=== PATIENT | female | born 1980 | race Caucasian/White ===

== ENCOUNTER 2018-05-14 19:45 | Emergency (ER) | payer SELFPAY ==
--- OUTSIDE RECORDS SUMMARY | 2018-05-14 19:48 | XMS REPORT | Clinical Summary ---
:1980 Author Organization [facility] Address [address] [place] [address] Phone Care Team Providers Name Role Phone Unavailable Primary Care Provider Unavailable Allergies No Known Allergies Current Medications Prescription Sig. Disp. Refills Start Date End Date Status HYDROcodone-acetami Take 1 tablet by Active nophen (NORCO mouth every 6 10-325) 10-325 mg (six) hours as per tablet needed for Pain. dextroamphetamine-a Take 20 mg by Active mphetamine mouth every (ADDERALL XR) 20 MG morning. 24 hr capsule clonazePAM Take 1 mg by mouth Active (KLONOPIN) 1 MG 2 (two) times tablet daily as needed for Anxiety. promethazine Take 25 mg by Active (PHENERGAN) 25 MG mouth every 6 tablet (six) hours as needed for Nausea. albuterol Take 2.5 mg by Active (PROVENTIL) 2.5 mg nebulization every /3 mL (0.083 %) 6 (six) hours as nebulizer solution needed for Wheezing. pentosan Take 100 mg by 06/04/2017 Discontinued polysulfate mouth 3 (three) (ELMIRON) 100 mg times daily before capsule meals. esomeprazole Take 20 mg by 06/04/2017 Discontinued (NEXIUM) 20 MG mouth daily. capsule Active Problems Not on file Encounters Date Type Specialty Care Team Description 06/04/2017 Emergency Emergency Medicine Leon Harrell Nonintractable headache, MD Octavio unspecified chronicity pattern, unspecified headache type (Primary Dx) after 05/13/2017 Social History Tobacco Use Types Packs/Day Years Used Date Never Smoker Smokeless Tobacco: Never Used Alcohol Use Drinks/Week oz/Week Comments No Sex Assigned at Date Recorded Not on file Last Filed Vital Signs Vital Sign Reading Time Taken Blood Pressure 149/99 06/04/2017 4:38 PM CDT Pulse 113 06/04/2017 4:38 PM CDT Temperature 36.7 C (98.1 F) 06/04/2017 4:38 PM CDT Respiratory Rate 18 06/04/2017 4:38 PM CDT Oxygen Saturation 98% 06/04/2017 4:38 PM CDT Inhaled Oxygen Concentration - - Weight 46.7 kg (103 lb) 06/04/2017 4:38 PM CDT Height 162.6 cm (5' 4") 06/04/2017 4:38 PM CDT Body Mass Index 17.68 06/04/2017 4:38 PM CDT Plan of Treatment Not on file Results CT brain without IV contrast (06/04/2017 5:17 PM) Specimen Performing Laboratory GE RIS Narrative FINAL REPORT CT Head without contrast CLINICAL HISTORY: HEADACHE Episode of Care: Initial TECHNIQUE: Contiguous axial images through the head without contrast. This exam was performed according to the departmental dose optimization program which includes automated exposure control, adjustment of the mA and/or kV according to the patient size, and/or use of an iterative reconstruction technique. COMPARISON: None FINDINGS: There is no CT evidence of acute infarct or intracranial hemorrhage. There is no hydrocephalus, midline shift, or apparent mass effect. There are no extra-axial fluid collections. The skull is intact. The visualized paranasal sinuses are well-aerated. IMPRESSION: No CT evidence of acute infarct, hemorrhage, or hydrocephalus. Signed: Olivier Su MD Report Verified Date/Time:06/04/2017 17:17:08 Reading Location: [facility] [id number] Neuro Reading Room Procedure Note Interface, External Ris In - 06/04/2017 5:19 PM CDT FINAL REPORT CT Head without contrast CLINICAL HISTORY: HEADACHE Episode of Care: Initial TECHNIQUE: Contiguous axial images through the head without contrast. This exam was performed according to the departmental dose optimization program which includes automated exposure control, adjustment of the mA and/or kV according to the patient size, and/or use of an iterative reconstruction technique. COMPARISON: None FINDINGS: There is no CT evidence of acute infarct or intracranial hemorrhage. There is no hydrocephalus, midline shift, or apparent mass effect. There are no extra-axial fluid collections. The skull is intact. The visualized paranasal sinuses are well-aerated. IMPRESSION: No CT evidence of acute infarct, hemorrhage, or hydrocephalus. Signed: Olivier Su MD Report Verified Date/Time: 06/04/2017 17:17:08 Reading Location: [facility] [id number] Neuro Reading Room after 05/13/2017
[2018-05-14] MEDS ORDERED: ONDANSETRON 4 MG/2 ML VIAL ONE (21:12)
[2018-05-14] MEDS ORDERED: NA CHLORIDE 0.9% 1,000 ML ONE (21:12)
[2018-05-14 21:14] LABS: Absolute Lymphocytes (CBC) 2.4 K/uL (0.7-4.9); Absolute Monocytes 1.1 K/uL (0.1-1.3); Absolute Neutrophil 5.6 K/uL (1.8-8.0); Basophils % 0.6 % (0-1.3); Eosinophils % 5.4 % (0-4.4); Hematocrit 39.5 % (36.0-45.0); Lymphocytes % 24.9 % (15.3-44.8); MCV 88.6 fL (80-100); MPV 9.2 fL (7.6-11.3); Monocytes % 11.3 % (3.3-12.3); RBC Red Blood Cell Count 4.46 M/uL (3.86-4.86)
[2018-05-14 21:20] LABS: Urine Bacteria <20 /HPF (<20); Urine Culture Reflex Order NOT NEEDED; Urine RBC <5 /HPF (NONE SEEN)
[2018-05-14 21:21] LABS: Urine Blood NEGATIVE (NEG); Urine Glucose NEGATIVE (NEG); Urine Protein NEGATIVE (NEG); Urine Specific Gravity 1.025 (1.005-1.030)
[2018-05-14 21:29] LABS: ALT/SGPT 18 U/L (12-78); AST/SGOT 12 U/L (15-37); Albumin 3.6 g/dL (3.4-5.0); Alkaline Phosphatase 61 U/L (45-117); BUN Blood Urea Nitrogen 14 mg/dL (7-18); Bicarbonate 30 mmol/L (21-32); Bilirubin Direct < 0.1 mg/dL (0-0.2); Bilirubin Total 0.2 mg/dL (0.2-1.0); Glucose Level 89 mg/dL (74-106); Lipase 100 U/L (73-393); Potassium 3.3 mmol/L (3.5-5.1); Protein, Total 7.2 g/dL (6.4-8.2); Sodium Level 138 mmol/L (136-145)
--- NOTE | 2018-05-14 22:15 | RAD REPORT ---
EXAM DESCRIPTION: CTAbdomen Pelvis W Contrast - 05/14/2018 10:05 pm CLINICAL HISTORY: Abdominal pain. ABD PAIN COMPARISON: Abdomen Pelvis W Contrast dated 08/30/2016; CT ABD PELVIS W CONTRAST dated 07/07/2013; CT ABD PELVIS W CONTRAST dated 07/04/2012bdomen Pelvis W Contrast dated 08/30/2016; CT ABD PELVIS W CONTRAST dated 07/07/2013; CT ABD PELVIS W CONTRAST dated 07/04/2012; CTSTONE PROTOCOL dated 01/22/2013 TECHNIQUE: Biphasic CT imaging of the abdomen and pelvis was performed with 100 ml non-ionic IV cont rast. All CT scans are performed using dose optimization technique as appropriate and may include automated exposure control or mA/KV adjustment according to patient size. FINDINGS: The lung bases are clear. The liver demonstrates mild pneumobilia. 3.5 x 3.7 cm left hepatic lobe lesion is again noted, with c haracteristics suggestive of benign hemangioma. No aggressive features are seen and the lesion appear s essentially stable since the most recent 2016 comparative study. Mild pneumobilia is seen with chol ecystectomy clips present. The spleen, adrenal glands and kidneys are within normal limits. No bowel obstruction, free air, free fluid or abscess. The appendix is normal. No evidence of signi ficant lymphadenopathy. 4 cm right adnexal cystic lesion is again noted appearing stable since most recent 2016 comparative s tudy. No suspicious bony findings. IMPRESSION: No acute intra-abdominal or pelvic finding. Additional findings detailed above appear stable since 2016 comparative study.
--- NOTE | 2018-05-14 22:46 | ER ---
Nurse's Notes [facility] Name: Evelyn Chawla Age: 37 yrs Sex: Female : 1980 Arrival Date: 05/14/2018 Time: 19:48 Bed 30 Private MD: Silver Power E Diagnosis: Proctitis Presentation: 05/14 20:04 Presenting complaint: Patient states: abd pain X3 days with intermittent nausea. ak1 Transition of care: patient was not received from another setting of care. Onset of symptoms is unknown. Risk Assessment: Do you want to hurt yourself or someone else? Patient reports no desire to harm self or others. Initial Sepsis Screen: Does the patient meet any 2 criteria? No. Patient's initial sepsis screen is negative. Does the patient have a suspected source of infection? No. Patient's initial sepsis screen is negative. Care prior to arrival: None. 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 - Social history:: Smoking status: Patient uses tobacco products, smokes one-half pack cigarettes per day. - Ebola Screening: : No symptoms or risks identified at this time. - Family history:: not pertinent. - Hospitalizations: : No recent hospitalization is reported. Screenin:07 Abuse screen: Denies threats or abuse. Denies injuries from another. Nutritional ed1 screening: No deficits noted. Tuberculosis screening: No symptoms or risk factors identified. Fall Risk None identified. Assessment: 20:07 General: Appears uncomfortable, Behavior is calm, cooperative. Pain: Complains of pain ed1 in abdomen Pain does not radiate. Pain currently is 7 out of 10 on a pain scale. Quality of pain is described as aching, crampy, Pain began 2-3 days ago. Is continuous, Also complains of nausea. Neuro: Level of Consciousness is awake, alert, obeys commands, Oriented to person, place, time, situation. Cardiovascular: Denies chest pain, Heart tones S1 S2 present. Respiratory: Airway is patent Respiratory effort is even, unlabored, Respiratory pattern is regular, symmetrical, Breath sounds are clear bilaterally. GI: Abdomen is flat, non-distended, Bowel sounds present X 4 quads. Abd is soft and non tender X 4 quads. Reports diarrhea, nausea, vomiting. : No signs and/or symptoms were reported regarding the genitourinary system. EENT: No signs and/or symptoms were reported regarding the EENT system. Derm: Skin is pink, warm \T\ dry. Musculoskeletal: Circulation, motion, and sensation intact. 21:07 Reassessment: Patient appears in no apparent distress at this time. No changes from ed1 previously documented assessment. Patient and/or family updated on plan of care and expected duration. Pain level reassessed. Patient is alert, oriented x 3, equal unlabored respirations, skin warm/dry/pink. Patient states symptoms have not improved. 22:29 Reassessment: Patient appears in no apparent distress at this time. No changes from ed1 previously documented assessment. Patient and/or family updated on plan of care and expected duration. Pain level reassessed. Patient is alert, oriented x 3, equal unlabored respirations, skin warm/dry/pink. Patient states symptoms have not improved. Vital Signs: 20:06 BP 126 / 78; Pulse 111; Resp 18; Temp 99.2; Pulse Ox 99% on R/A; Weight 44.45 kg (R); ak1 Height 5 ft. 4 in. (162.56 cm) (R); Pain 7/10; 21:07 BP 123 / 77; Pulse 93; Resp 20; Pulse Ox 100% on R/A; Pain 7/10; ed1 22:29 BP 126 / 83; Pulse 74; Resp 16; Pulse Ox 100% on R/A; Pain 5/10; ed1 20:06 Body Mass Index 16.82 (44.45 kg, 162.56 cm) ak1 ED Course: 19:48 Patient arrived in ED. al2 19:49 Silver Power MD is Private Physician. al2 20:05 Triage completed. ak1 20:06 Arm band placed on Patient placed in an exam room, on a stretcher, Patient notified of ak1 wait time. 20:07 Patient has correct armband on for positive identification. Bed in low position. Call ed1 light in reach. Side rails up X 1. Adult w/ patient. Pulse ox on. NIBP on. Warm blanket given. 20:09 García Moore MD is Attending Physician. rn 20:14 Delaney Diaz LVN is Primary Nurse. ed1 21:08 Initial lab(s) drawn, by me, sent to lab. Urine collected: clean catch specimen, clear. ed1 Inserted saline lock: 20 gauge in right antecubital area, using aseptic technique. Blood collected. 22:[address] via wheelchair. ne 22:04 CT completed. Patient tolerated procedure well. Patient moved back from NH. ne 22:05 CT Abd/Pelvis - W/Contrast In Process Unspecified. EDMS 22:29 Resting quietly. Awaiting disposition. ed1 22:58 No provider procedures requiring assistance completed. IV discontinued. rk2 Administered Medications: 21:33 Drug: NS 0.9% 1000 ml Route: IV; Rate: 1000 ml; Site: right antecubital; fc 21:34 Drug: Zofran 4 mg Route: IVP; Site: right antecubital; fc 22:56 Drug: Cipro 500 mg Route: PO; rk2 22:57 Follow up: Given \T\ DC rk2 22:56 Drug: Flagyl 500 mg Route: PO; rk2 22:57 Follow up: Given \T\ DC rk2 Intake: Outcome: 22:45 Discharge ordered by . rn 22:58 Discharged to home ambulatory. rk2 22:58 Condition: good 22:58 Discharge instructions given to patient, Prescriptions given X 3. 22:59 Patient left the ED. rk2 Signatures: Dispatcher [employer] EDMI Radha Martinez RN RN García Moore MD MD rn Riggs, Erika, LVN LVN ed1 Shiloh Hardy RN RN [email or web address] Jaun Bishop Angelica al2 Kidder, Rhonda, RN RN rk2
--- NOTE | 2018-05-14 22:46 | EDPHYS ---
Physician Documentation [facility] Name: Evelyn Chawla Age: 37 yrs Sex: Female : 1980 Arrival Date: 05/14/2018 Time: 19:48 Bed 30 Private MD: Silver Power E ED Physician García Moore HPI: 05/14 20:18 This 37 yrs old Female presents to ER via Ambulatory with complaints of rn Abdominal Pain, Nausea, Rectal Pain. 20:18 The patient presents to the emergency department with nausea, abdominal pain. Onset: rn The symptoms/episode began/occurred 2 day(s) ago. Possible causes: unknown. The symptoms are aggravated by nothing. The symptoms are alleviated by nothing. Severity of symptoms: At their worst the symptoms were moderate in the emergency department the symptoms are unchanged. The patient has experienced a previous episode. The patient has not recently seen a physician. Reports lower abd pain, nausea, rectal pressure, green stool, no blood. . 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 - Social history:: Smoking status: Patient uses tobacco products, smokes one-half pack cigarettes per day. - Ebola Screening: : No symptoms or risks identified at this time. - Family history:: not pertinent. - Hospitalizations: : No recent hospitalization is reported. ROS: 20:18 Constitutional: Negative for fever, chills, and weight loss, Eyes: Negative for injury, rn pain, redness, and discharge, Neck: Negative for injury, pain, and swelling, Cardiovascular: Negative for chest pain, palpitations, and edema, Respiratory: Negative for shortness of breath, cough, wheezing, and pleuritic chest pain, Abdomen/GI: + abd pain, nausea, rectal pressure MS/Extremity: Negative for injury and deformity, Skin: Negative for injury, rash, and discoloration, Neuro: Negative for headache, weakness, numbness, tingling, and seizure. Exam: 20:18 Constitutional: This is a well developed, well nourished patient who is awake, alert, rn and in no acute distress. Head/Face: Normocephalic, atraumatic. Eyes: Pupils equal round and reactive to light, extra-ocular motions intact. Lids and lashes normal. Conjunctiva and sclera are non-icteric and not injected. Cornea within normal limits. Periorbital areas with no swelling, redness, or edema. ENT: dry MM Abdomen/GI: soft, + mild LLQ, suprapubic, and RLQ tenderness, no rebound, no masses Skin: Warm, dry, no evidence of cellulitis. MS/ Extremity: Pulses equal, no cyanosis. Neurovascular intact. Full, normal range of motion. Equal circumference. Neuro: Awake and alert, GCS 15, oriented to person, place, time, and situation. Motor strength 5/5 in all extremities. Sensory grossly intact. Vital Signs: 20:06 BP 126 / 78; Pulse 111; Resp 18; Temp 99.2; Pulse Ox 99% on R/A; Weight 44.45 kg (R); ak1 Height 5 ft. 4 in. (162.56 cm) (R); Pain 7/10; 21:07 BP 123 / 77; Pulse 93; Resp 20; Pulse Ox 100% on R/A; Pain 7/10; ed1 22:29 BP 126 / 83; Pulse 74; Resp 16; Pulse Ox 100% on R/A; Pain 5/10; ed1 20:06 Body Mass Index 16.82 (44.45 kg, 162.56 cm) ak1 MDM: 20:09 Patient medically screened. rn 22:44 Differential diagnosis: Nonspecific abd pain, viral gastroenteritis, gastroenteritis, rn colitis, proctitis. Data reviewed: vital signs, nurses notes, lab test result(s), radiologic studies, CT scan, and as a result, I will discharge patient. Counseling: I had a detailed discussion with the patient and/or guardian regarding: the historical points, exam findings, and any diagnostic results supporting the discharge/admit diagnosis, lab results, radiology results, the need for outpatient follow up, to return to the emergency department if symptoms worsen or persist or if there are any questions or concerns that arise at home. Response to treatment: the patient's symptoms have markedly improved after treatment, and as a result, I will discharge patient. Special discussion: I discussed with the patient/guardian in detail that at this point there is no indication for admission to the hospital. It is understood, however, that if the symptoms persist or worsen the patient needs to return immediately for re-evaluation. ED course: Pt improved, ct no acute findings, will treat with cipro/flagyl given green stool/rectal pressure, symptoms consistent with proctitis. . 05/14 20:17 Order name: Basic Metabolic Panel; Complete Time: : 05/14 20:17 Order name: CBC with Diff; Complete Time: : 05/14 20:17 Order name: Hepatic Function; Complete Time: : 05/14 20:17 Order name: Lipase; Complete Time: : 05/14 20:17 Order name: Urine Microscopic Only; Complete Time: : 05/14 21:10 Order name: Urine Dipstick--Ancillary (enter results); Complete Time: : 05/14 20:17 Order name: Urine Test (obtain specimen); Complete Time: 21: 05/14 20:17 Order name: IV Saline Lock; Complete Time: : 05/14 20:17 Order name: CT Abd/Pelvis - W/Contrast; Complete Time: : 05/14 21:10 Order name: Urine --Ancillary (enter results); Complete Time: : 05/14 20:17 Order name: Labs collected and sent; Complete Time: 21: 05/14 20:17 Order name: Urine Dipstick-Ancillary (obtain specimen); Complete Time: 21: rn Administered Medications: 21:33 Drug: NS 0.9% 1000 ml Route: IV; Rate: 1000 ml; Site: right antecubital; fc 21:34 Drug: Zofran 4 mg Route: IVP; Site: right antecubital; fc 22:56 Drug: Cipro 500 mg Route: PO; rk2 22:57 Follow up: Given \T\ DC rk2 22:56 Drug: Flagyl 500 mg Route: PO; rk2 22:57 Follow up: Given \T\ DC rk2 Disposition: 05/14/18 22:45 Discharged to Home. Impression: Proctitis. - Condition is Stable. - Prescriptions for Flagyl 500 mg Oral Tablet - take 1 tablet by ORAL route every 8 hours for 7 days; 21 tablet. Cipro 500 mg Oral Tablet - take 1 tablet by ORAL route every 12 hours for 7 days; 14 tablet. Zofran ODT 4 mg Oral tablet,disintegrating - place 1 tablet by TRANSLINGUAL route every 8-10 hours As needed; 20 tablet. - Medication Reconciliation Form, Thank You Letter, Antibiotic Education, Prescription Opioid Use form. - Follow up: Private Physician; When: As needed; Reason: Recheck today's complaints, Re-evaluation by your physician. - Problem is new. - Symptoms have improved. Signatures: Dispatcher [employer] EDMS Radha Martinez, RN RN García Myers MD MD rn Riggs, Erika, PLASTIC BOAT PATCHER PLASTIC BOAT PATCHER ed1 Shiloh Hardy RN RN ak1 Mali Lux RN RN rk2 Corrections: (The following items were deleted from the chart) 22:59 22:45 05/14/2018 22:45 Discharged to Home. Impression: Proctitis. Condition is Stable. rk2 Forms are Medication Reconciliation Form, Thank You Letter, Antibiotic Education, Prescription Opioid Use. Follow up: Private Physician; When: As needed; Reason: Recheck today's complaints, Re-evaluation by your physician. Problem is new. Symptoms have improved. rn
[2018-05-14] MEDS ORDERED: metroNIDAZOLE 500 MG TABLET ONE (22:56)
[2018-05-14] MEDS ORDERED: CIPROFLOXACIN HCL 500 MG TAB ONE (22:56)
[2018-05-14 23:03] VITALS: TEMP 99.2
[2018-05-14 23:04] VITALS: O2SAT 100
[2018-05-14 23:05] VITALS: BP 126/83
== END 2018-05-14 22:59 | disposition home or self-care (01) ==
LOC: ER 19:45
DX: K62.89 Other specified diseases of anus and rectum (principal); F17.210 Nicotine dependence, cigarettes, uncomplicated
CPT/HCPCS: 36415; 74177; 80048; 80076; 81003; 81015; 81025; 83690; 85025; 96374; 99284; J2405; J7030

== ENCOUNTER 2018-09-17 12:28 | Emergency (ER) | payer SELFPAY ==
--- OUTSIDE RECORDS SUMMARY | 2018-09-17 12:31 | XMS REPORT | Clinical Summary ---
:1980 Author Organization [facility] Address [address] [place] [address] Care Team Providers Name Role Phone Christine Primary Care Provider Allergies No Known Allergies Medications Medication Sig Dispensed Refills Start Date End Date Status HYDROcodone-acetamin Take 1 tablet by 0 Active ophen (NORCO 10-325) mouth every 6 (six) 10-325 mg per tablet hours as needed for Pain. dextroamphetamine-am Take 20 mg by mouth 0 Active phetamine (ADDERALL every morning. XR) 20 MG 24 hr capsule clonazePAM Take 1 mg by mouth 2 0 Active (KLONOPIN) 1 MG (two) times daily as tablet needed for Anxiety. promethazine Take 25 mg by mouth 0 Active (PHENERGAN) 25 MG every 6 (six) hours tablet as needed for Nausea. albuterol Take 2.5 mg by 0 Active (PROVENTIL) 2.5 mg nebulization every 6 /3 mL (0.083 %) (six) hours as nebulizer solution needed for Wheezing. Active Problems Not on file Social History Tobacco Use Types Packs/Day Years Used Date Never Smoker Smokeless Tobacco: Never Used Alcohol Use Drinks/Week oz/Week Comments No Sex Assigned at Date Recorded Not on file Job Start Date Occupation Industry Not on file Not on file Not on file Travel History Travel Start Travel End No recent travel history available. Last Filed Vital Signs Not on file Plan of Treatment Not on file Results Not on fileafter 09/16/2017 Insurance Payer Benefit Plan / Group Subscriber ID Type Phone Address MEDICAID [place]ICA[place] xxxxxxxxx Medicaid
--- NOTE | 2018-09-17 15:58 | ER ---
Nurse's Notes [facility] Name: Evelyn Chawla Age: 37 yrs Sex: Female : 1980 Arrival Date: 09/17/2018 Time: 12:29 Bed DIS13 Private MD: Silver Power E Diagnosis: Presentation: 09/17 13:15 Presenting complaint: Patient states: " L sided neck/jaw pain x 2-3 days, worse today, ph described as squeezing pain that radiates to back of neck, also reports rash in nose, reports hx of trigeminal neuralgia. Transition of care: patient was not received from another setting of care. Onset of symptoms was September 17, 2018. Risk Assessment: Do you want to hurt yourself or someone else? Patient reports no desire to harm self or others. Care prior to arrival: None. 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 Vital Signs: 13:20 BP 113 / 67; Pulse 91; Resp 18; Temp 98.7; Pulse Ox 100% on R/A; Weight 44.45 kg; ph Height 5 ft. 4 in. (162.56 cm); Pain 6/10; 13:20 Body Mass Index 16.82 (44.45 kg, 162.56 cm) ph ED Course: 12:29 Patient arrived in ED. as 12:29 Silver Power MD is Private Physician. as 13:18 Triage completed. ph 13:20 Arm band placed on. ph Administered Medications: No medications were administered Outcome: 15:56 Eloped from waiting room, reportedly left at 1526 -per registration staff. NAD noted. ss 15:57 Patient left the ED. Signatures: Lavonne Petersen Shelby, RN RN Roselia Pabon RN RN
[2018-09-17 16:21] VITALS: BP 113/67; TEMP 98.7; O2SAT 100
== END 2018-09-17 15:57 | disposition left against medical advice (07) ==
LOC: ER 12:28
DX: Z53.21 Procedure and treatment not carried out due to patient leaving prior to being seen by health care provider (principal)
CPT/HCPCS: 99281

== ENCOUNTER 2019-01-15 19:30 | Emergency (ER) | payer SELFPAY ==
--- OUTSIDE RECORDS SUMMARY | 2019-01-15 19:33 | XMS REPORT | Clinical Summary ---
:1980 Author Organization [facility] Address [address] [place] [address] Care Team Providers Name Role Phone Christine [...] Not on file Results Not on fileafter 01/14/2018 Insurance Payer Benefit Plan / Group Subscriber ID Type Phone Address MEDICA[place] xxxxxxxxx Medicaid
[2019-01-15] MEDS ORDERED: HYDROMORPHONE HCL 1 MG/ML INJ ONE (21:45)
[2019-01-15 22:06] LABS: Urine Blood NEGATIVE (NEG); Urine Glucose NEGATIVE (NEG); Urine Protein NEGATIVE (NEG); Urine Specific Gravity 1.025 (1.005-1.030); Urine pH 6.5 (5.0-7.0)
--- NOTE | 2019-01-15 22:40 | EDPHYS ---
Physician Documentation [facility] Name: Evelyn Chawla Age: 38 yrs Sex: Female : 1980 Arrival Date: 01/15/2019 Time: 19:34 Bed 28 Private MD: Silver Power E ED Physician Dale Matias HPI: 01/15 22:10 This 38 yrs old Female presents to ER via Ambulatory with complaints of jr8 Facial pain, Jaw Pain. 22:10 Onset: The symptoms/episode began/occurred acutely, today. Associated signs and jr8 symptoms: The patient has no apparent associated signs or symptoms. Modifying factors: The patient symptoms are alleviated by nothing, the patient symptoms are aggravated by nothing. The patient has experienced similar episodes in the past, several times. The patient has not recently seen a physician. Patient with history of Trigeminal neuralgia. Stated that normally she is able to fight through the pain but tonight is so severe that she cannot. Stated that she feels it on both sides tonight as well which normally it just does one side at a time. 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 - Social history:: Smoking status: Patient uses tobacco products, smokes one-half pack cigarettes per day. - Ebola Screening: : No symptoms or risks identified at this time. ROS: 22:35 Eyes: Negative for injury, pain, redness, and discharge, ENT: Negative for injury, jr8 pain, and discharge, Neck: Negative for injury, pain, and swelling, Cardiovascular: Negative for chest pain, palpitations, and edema, Respiratory: Negative for shortness of breath, cough, wheezing, and pleuritic chest pain, Abdomen/GI: Negative for abdominal pain, nausea, vomiting, diarrhea, and constipation, Back: Negative for injury and pain, MS/Extremity: Negative for injury and deformity, Skin: Negative for injury, rash, and discoloration, Neuro: Negative for headache, weakness, numbness, tingling, and seizure. Exam: 22:35 Head/Face: Normocephalic, atraumatic. Eyes: Pupils equal round and reactive to light, jr8 extra-ocular motions intact. Lids and lashes normal. Conjunctiva and sclera are non-icteric and not injected. Cornea within normal limits. Periorbital areas with no swelling, redness, or edema. ENT: Nares patent. No nasal discharge, no septal abnormalities noted. Tympanic membranes are normal and external auditory canals are clear. Oropharynx with no redness, swelling, or masses, exudates, or evidence of obstruction, uvula midline. Mucous membranes moist. Neck: Trachea midline, no thyromegaly or masses palpated, and no cervical lymphadenopathy. Supple, full range of motion without nuchal rigidity, or vertebral point tenderness. No Meningismus. Cardiovascular: Regular rate and rhythm with a normal S1 and S2. No gallops, murmurs, or rubs. Normal PMI, no JVD. No pulse deficits. Respiratory: Lungs have equal breath sounds bilaterally, clear to auscultation and percussion. No rales, rhonchi or wheezes noted. No increased work of breathing, no retractions or nasal flaring. Abdomen/GI: Soft, non-tender, with normal bowel sounds. No distension or tympany. No guarding or rebound. No evidence of tenderness throughout. Back: No spinal tenderness. No costovertebral tenderness. Full range of motion. Skin: Warm, dry with normal turgor. Normal color with no rashes, no lesions, and no evidence of cellulitis. MS/ Extremity: Pulses equal, no cyanosis. Neurovascular intact. Full, normal range of motion. Neuro: Awake and alert, GCS 15, oriented to person, place, time, and situation. Cranial nerves II-XII grossly intact. Motor strength 5/5 in all extremities. Sensory grossly intact. Cerebellar exam normal. Normal gait. Vital Signs: 19:40 BP 134 / 85; Pulse 95; Resp 18; Temp 98.3(O); Pulse Ox 100% on R/A; Weight 46.27 kg; jb5 Height 5 ft. 4 in. (162.56 cm); Pain 9/10; 22:30 BP 123 / 85; Pulse 81; Resp 18; Pulse Ox 100% on R/A; tl3 19:40 Body Mass Index 17.51 (46.27 kg, 162.56 cm) jb5 MDM: 20:49 Patient medically screened. jr8 22:38 Data reviewed: vital signs, nurses notes, radiologic studies, CT scan, and as a result, jr8 I will discharge patient. Data interpreted: Pulse oximetry: on room air is 100 %. Interpretation: normal. Counseling: I had a detailed discussion with the patient and/or guardian regarding: the historical points, exam findings, and any diagnostic results supporting the discharge/admit diagnosis, radiology results, the need for outpatient follow up, a neurologist, to return to the emergency department if symptoms worsen or persist or if there are any questions or concerns that arise at home. Response to treatment: the patient's symptoms have markedly improved after treatment. 01/15 21:45 Order name: Urine Dipstick--Ancillary (enter results); Complete Time: 22:10 mw2 01/15 21:05 Order name: CT Head Brain wo Cont jr8 Administered Medications: 21:40 Drug: Dilaudid 1 mg Route: IM; Site: right gluteus; tl3 22:59 Follow up: Response: No adverse reaction; Pain is decreased tl3 Disposition: 01/16 06:22 Co-signature as Attending Physician, Dale Matias MD I agree with the assessment and tw4 plan of care. Disposition: 01/15/19 22:39 Discharged to Home. Impression: Atypical facial pain. - Condition is Stable. - Discharge Instructions: Trigeminal Neuralgia. - Medication Reconciliation Form, Thank You Letter, Antibiotic Education, Prescription Opioid Use form. - Follow up: Private Physician; When: 2 - 3 days; Reason: Recheck today's complaints, Continuance of care, Re-evaluation by your physician. - Problem is new. - Symptoms have improved. Signatures: Dispatcher [employer] EDMS Nasir Melo PA PA jrDale Mendez MD MD tw4 Ninfa Mackenzie RN RN tl3 Corrections: (The following items were deleted from the chart) 01/15 23:00 22:39 01/15/2019 22:39 Discharged to Home. Impression: Atypical facial pain. Condition tl3 is Stable. Forms are Medication Reconciliation Form, Thank You Letter, Antibiotic Education, Prescription Opioid Use. Follow up: Private Physician; When: 2 - 3 days; Reason: Recheck today's complaints, Continuance of care, Re-evaluation by your physician. Problem is new. Symptoms have improved. jr8
--- NOTE | 2019-01-15 22:40 | ER ---
Nurse's Notes [facility] Name: Evelyn Chawla Age: 38 yrs Sex: Female : 1980 Arrival Date: 01/15/2019 Time: 19:34 Bed 28 Private MD: Silver Power E Diagnosis: Atypical facial pain Presentation: 01/15 20:12 Presenting complaint: Patient states: reports neck pain, jaw pain and ear pain that tl3 radiates up to left eye. Transition of care: patient was not received from another setting of care. Onset of symptoms. Risk Assessment: Do you want to hurt yourself or someone else? Patient reports no desire to harm self or others. Initial Sepsis Screen: Does the patient meet any 2 criteria? No. Patient's initial sepsis screen is negative. Does the patient have a suspected source of infection? No. Patient's initial sepsis screen is negative. Care prior to arrival: None. 20:12 Method Of Arrival: Ambulatory tl3 20:12 Acuity: ISREAL 3 tl3 Triage Assessment: 20:18 General: Appears distressed, uncomfortable, well groomed, well developed, well tl3 nourished, Behavior is cooperative, appropriate for age. Pain: Complains of pain in neck, jaw, ear, left eye. EENT: Reports pain in left ear. Neuro: Level of Consciousness is awake, alert, obeys commands, Oriented to person, place, time, situation, Appropriate for age. Cardiovascular: Patient's skin is warm and dry. Respiratory: Airway is patent Respiratory effort is even, unlabored, Respiratory pattern is regular, symmetrical. 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 - Social history:: Smoking status: Patient uses tobacco products, smokes one-half pack cigarettes per day. - Ebola Screening: : No symptoms or risks identified at this time. Screenin:19 Abuse screen: Denies threats or abuse. Nutritional screening: No deficits noted. tl3 Tuberculosis screening: No symptoms or risk factors identified. Fall Risk None identified. Assessment: 20:19 Reassessment: No changes from previously documented assessment. tl3 21:00 Reassessment: Nasir at bedside for assessment. tl3 22:30 Reassessment: Patient appears in no apparent distress at this time. No changes from tl3 previously documented assessment. Patient and/or family updated on plan of care and expected duration. Pain level reassessed. Patient is alert, oriented x 3, equal unlabored respirations, skin warm/dry/pink. Vital Signs: 19:40 BP 134 / 85; Pulse 95; Resp 18; Temp 98.3(O); Pulse Ox 100% on R/A; Weight 46.27 kg; jb5 Height 5 ft. 4 in. (162.56 cm); Pain 9/10; 22:30 BP 123 / 85; Pulse 81; Resp 18; Pulse Ox 100% on R/A; tl3 19:40 Body Mass Index 17.51 (46.27 kg, 162.56 cm) jb5 ED Course: 19:34 Patient arrived in ED. am2 19:35 Silver Power MD is Private Physician. am2 19:47 [facility]. jr8 19:48 Dale Matias MD is Attending Physician. jr8 20:11 Ninfa Mackenzie, COURTNEY is Primary Nurse. tl3 20:14 Triage completed. tl3 20:18 Arm band placed on right wrist. tl3 20:19 Patient has correct armband on for positive identification. Bed in low position. Side tl3 rails up X 1. Adult w/ patient. Pulse ox on. NIBP on. 20:19 No provider procedures requiring assistance completed. tl3 21:[address] vm2 21:36 CT Head Brain wo Cont In Process Unspecified. EDMS 21:44 CT completed. Patient tolerated procedure well. Patient moved back from CT. vm2 22:30 Patient did not have IV access during this emergency room visit. tl3 Administered Medications: 21:40 Drug: Dilaudid 1 mg Route: IM; Site: right gluteus; tl3 22:59 Follow up: Response: No adverse reaction; Pain is decreased tl3 Outcome: 22:30 Discharged to home ambulatory. tl3 22:30 Condition: stable 22:30 Discharge instructions given to patient, Instructed on discharge instructions, follow up and referral plans. Demonstrated understanding of instructions, follow-up care, medications. 22:39 Discharge ordered by MD. ruano 23:00 Patient left the ED. tl3 Signatures: Dispatcher [employer] EDMS Nasir Melo PA PA jr8 Veronica Sal Amanda am2 McGuire, Victoria 2 Ninfa Mackenzie, RN RN tl3
[2019-01-15 23:46] VITALS: TEMP 98.3; O2SAT 100
[2019-01-15 23:57] VITALS: BP 123/85
--- NOTE | 2019-01-16 12:00 | RAD REPORT ---
EXAM DESCRIPTION: Head Brain Wo Cont CLINICAL HISTORY: 38 years Female, PAIN TECHNIQUE: 5 mm axial images were obtained along with 3 mm reformatted coronal and sagittal images. This exam was performed according to our departmental dose-optimization program, which includes autom ated exposure control, adjustment of the mA and/or kV according to patient size and/or use of iterati ve reconstruction technique. COMPARISON: None. FINDINGS: No acute abnormal extracerebral fluid collections are demonstrated. The cortical sulci, ventricles, and cisterns are within normal limits. There are no areas of altered attenuation identified to suggest acute hemorrhage, infarction, or mass lesion. The visualized portions of the paranasal sinuses and mastoid air cells are clear. IMPRESSION: 1. Normal study. Electronically signed by: Gama Smith MD 01/15/2019 9:45 PM CERTIFICATION OFFICER Due to temporary technical issues with the PACS/Fluency reporting system, reports are being signed b y the in house radiologist as a courtesy to ensure prompt reporting. The interpreting radiologist is fully responsible for the content of the report.
== END 2019-01-15 23:00 | disposition home or self-care (01) ==
LOC: ER 19:30
DX: G50.1 Atypical facial pain (principal); G50.0 Trigeminal neuralgia; F17.210 Nicotine dependence, cigarettes, uncomplicated
CPT/HCPCS: 70450; 81003; 96372; 99284; J1170

== ENCOUNTER 2020-02-14 17:30 | Emergency (ER) | payer OTHER ==
--- OUTSIDE RECORDS SUMMARY | 2020-02-14 17:34 | XMS REPORT | Summary of Care ---
:1980 Author Organization [facility] Address [address] [place] [address] Care Team Providers Name Role Phone Michi Glaser Primary Care Provider Encounter Details Date Type Department Care Team Description 02/14/2020 Orders Only [facility] Doctor Unassigned, No [address] [facility] [place] [address] [address] [place] [address] Allergies No Known Allergiesdocumented as of this encounter (statuses as of 02/14/2020) Medications Medication Sig Dispensed Refills Start Date End Date Status Hydrocodone-Acetaminop Take 1 Tab by 0 Active hen (XODOL 10/300) mouth 2 (two) 10-300 mg tablet times daily. traMADOL (ULTRAM) 50 Take 50 mg by 0 Active mg tablet mouth every 6 (six) hours as needed. benzonatate (TESSALON) Take 1 Cap by 21 Cap 0 09/09/2015 Active 200 mg capsule mouth 3 (three) times daily as needed for Cough. levofloxacin Take 1 tablet by 6 tablet 0 04/08/2016 Active (LEVAQUIN) 500 mg mouth every 24 tablet (twenty-four) hours. phenazopyridine Take 1 tablet by 8 tablet 0 04/08/2016 Active (PYRIDIUM) 200 mg mouth 3 (three) tablet times daily. traMADOL (ULTRAM) 50 Take 1 tablet by 20 tablet 0 04/08/2016 Active mg tablet mouth every 6 (six) hours as needed for Pain (scale 7-10). amoxicillin (TRIMOX) Take 1 capsule by 21 capsule 0 04/22/2016 Active 500 mg capsule mouth 3 (three) times daily. traMADOL (ULTRAM) 50 Take 1 tablet by 20 tablet 0 07/06/2016 Active mg tablet mouth every 6 (six) hours as needed for Pain unrelieved by non-narcotic analgesics. carBAMazepine Take 1 tablet by 60 tablet 0 06/02/2019 Active (TEGRETOL) 200 mg mouth every 12 tabletIndications: (twelve) hours. Right facial pain, Trigeminal neuralgia of right side of face documented as of this encounter (statuses as of 02/14/2020) Active Problems No known active problemsdocumented as of this encounter (statuses as of 2019) Social History Tobacco Use Types Packs/Day Years Used Date Never Assessed Sex Assigned at Date Recorded Not on file Job Start Date Occupation Industry Not on file Not on file Not on file Travel History Travel Start Travel End No recent travel history available. documented as of this encounter Last Filed Vital Signs Not on filedocumented in this encounter Plan of Treatment Health Maintenance Due Date Last Done Comments DTaP,Tdap,and Td Vaccines (1 - 1989 Tdap) PAP SMEAR 12/15/2009 12/15/2006 Breast Cancer Screening 2018 (MAMMOGRAM) INFLUENZA VACCINE (#1) 2019 PNEUMOCOCCAL 0-64 YEARS COMBINED Aged Out No longer eligible based on SERIES patient's age to complete this topic documented as of this encounter Procedures Procedure Name Priority Date/Time Associated Diagnosis Comments ASSIGNMENT OF BENEFITS Routine 02/14/2020 4:04 PM CDT documented in this encounter Results Not on filedocumented in this encounter Insurance Payer Benefit Plan / Group Subscriber ID Effective Dates Phone Address Type CIGNA CIGNA GENERIC [id number] 2019-Present HMO/PPO/POS documented as of this encounter
--- OUTSIDE RECORDS SUMMARY | 2020-02-14 17:34 | XMS REPORT ---
:1980 [facility] Address [address] [place] [address] Dr. Wilkerson [address] [place] [id number] Care Team Providers Name Role Phone ELLIOT HOGAN Unavailable Unavailable Problems This patient has no known problems. Allergies, Adverse Reactions, Alerts This patient has no known allergies or adverse reactions. Medications This patient has no known medications. Results Test Description Test Time Test Comments Text Results Atomic Results Result Comments FINE NEEDLE ASPIRATION BY 2020-02-10 15:03:00 Medical Cytology Report CLINICIAN Case: [id number] Authorizing Provider: Elliot Hogan MD Collected: 02/07/2020 1414 Ordering Location: [facility] Endoscopy Received: 02/07/2020 1521 Services Pathologist: Maricruz Garcia MD Specimen: Liver, Left liver mass FNA in CRR LEFT LOBE LIVER MASS FNA BY CLINICIAN (CYTOSPINS AND CELL BLOCK OF ASPIRATE): - NO MALIGNANT CELLS IDENTIFIED PREDOMINANTLY ACUTE INFLAMMATION PRESENT Signing Pathologist Direct Phone Line: [phone] signed by Maricruz Garcia MD on 02/10/2020 at 3:03 PMClinical correlation is recommended.[id number], 74418(4.0 X 2.3 cm) irregular mass in the left lobe of the liverLEFT LOBE LIVER MASS FNA30 mls in cytorich red; 4 cytospins, cell blockCollected: [id number]: [id number] is blood and admixed acute inflammation. Focal benign glandular epithelium and non-keratinized squamous epithelium is present, likely from FNA tract.[facility], Department of Pathology, [address] [place] [id number], [facility], [address] [place] [address], [facility], Department of Pathology, [address] [place] [address], [place] [address], FINE NEEDLE ASPIRATE (FNA) REQUEST 2020-02-07 17:00:00 Test Item Value Reference Range Comments CYTOLOGY RESULT POINTER (MARTIN) (test ulqc=[id number]) See Separate Report [place], [id number] 14:49:00Reason for exam:->abnormal imagingFINAL REPORT Technique: ERCP dated 02/07/2020 HISTORY: Abnormal imaging COMPARISON: ERCP dated 05/19/2015 IMPRESSION:Total fluoroscopy time is one minute. Total number of images istwo. Images show contrast within the biliary system. Please see operative report for details. Signed: Elvia Curieleport Verified Date/Time: 02/07/2020 14:49:28 Reading Location: [address] Radiology Reading Room
[2020-02-14] MEDS ORDERED: FENTANYL CITR 100 MCG/2 ML ONE (18:11)
[2020-02-14] MEDS ORDERED: PROMETHAZINE INJ 25 MG/ML AMP ONE (18:11)
[2020-02-14] MEDS ORDERED: SIMETHICONE 80 MG TAB ONE (18:12)
--- NOTE | 2020-02-14 19:23 | ER ---
Nurse's Notes [facility] Name: Evelyn Chawla Age: 39 yrs Sex: Female : 1980 Arrival Date: 02/14/2020 Time: 17:33 Bed 7 Private MD: Diagnosis: Upper abdominal pain, unspecified;Gas pain Presentation: 02/13 17:41 Chief complaint: Patient states: RUQ pain described as" tender and like a balloon is ss swelling up." Pt reports she had a MRCP and a liver biopsy 1 week ago. Coronavirus screen: Patient denies fever greater than 100.4F, cough, shortness of breath, or difficulty breathing. Proceed with normal triage process. Ebola Screen: Patient denies exposure to infectious person. Patient denies travel to an Ebola-affected area in the 21 days before illness onset. Initial Sepsis Screen: Does the patient meet any 2 criteria? No. Patient's initial sepsis screen is negative. Does the patient have a suspected source of infection? No. Patient's initial sepsis screen is negative. Risk Assessment: Do you want to hurt yourself or someone else? Patient reports no desire to harm self or others. 17:41 Method Of Arrival: Ambulatory ss 17:41 Acuity: ISREAL 3 ss Historical: - Allergies: 17:42 No Known Allergies; hb - Home Meds: 17:42 gabapentin 300 mg Oral cap [Active]; Hydrocodone-Acetaminophen Oral [Active]; Lorazepam hb Oral [Active]; - PMHx: 17:42 interstitial cystitis; Mieners disease; stage 2 billiary disease; trigeminal neuralgia; hb - PSHx: 17:42 Oophorectomy; Stent to biliary tract; Cholecystectomy; Hysterectomy; hb - Immunization history:: Adult Immunizations up to date. - Social history:: Smoking status: Patient denies any tobacco usage or history of. Screenin:42 Abuse screen: Denies threats or abuse. Denies injuries from another. Nutritional hb screening: No deficits noted. Tuberculosis screening: No symptoms or risk factors identified. Fall Risk None identified. Assessment: 17:55 General: Appears in no apparent distress. Behavior is calm, cooperative. Pain: Pain hb currently is 7 out of 10 on a pain scale. Neuro: Level of Consciousness is awake, alert, obeys commands, Oriented to person, place, time, situation. Cardiovascular: Capillary refill < 3 seconds Patient's skin is warm and dry. Respiratory: Airway is patent Respiratory effort is even, unlabored, Respiratory pattern is regular, symmetrical. GI: Reports upper abdominal pain. : No signs and/or symptoms were reported regarding the genitourinary system. EENT: No signs and/or symptoms were reported regarding the EENT system. Derm: Skin is pink, warm \\T\\ dry. Musculoskeletal: No signs and/or symptoms reported regarding the musculoskeletal system. 18:45 Reassessment: Patient appears in no apparent distress at this time. Patient and/or hb family updated on plan of care and expected duration. Pain level reassessed. Patient is alert, oriented x 3, equal unlabored respirations, skin warm/dry/pink. Vital Signs: 17:41 BP 150 / 97; Pulse 77; Resp 18; Temp 97.8(TE); Pulse Ox 98% on R/A; Weight 50.35 kg; ss Height 5 ft. 4 in. (162.56 cm); Pain 7/10; 18:30 BP 120 / 70; Pulse 69; Resp 15; Pulse Ox 99% ; hb 19:42 BP 126 / 82; Pulse 70; Resp 20; Pain 5/10; lw1 17:41 Body Mass Index 19.05 (50.35 kg, 162.56 cm) ED Course: 17:33 Patient arrived in ED. am2 17:40 Patient has correct armband on for positive identification. Placed in gown. Bed in low mh5 position. Call light in reach. Warm blanket given. Pulse ox on. NIBP on. 17:41 Asha Mendoza, COURTNEY is Primary Nurse. hb 17:41 Arm band placed on right wrist. ss 17:42 Triage completed. ss 17:43 Connie Sarah FNP-C [facility]. snw 17:43 Branden Piña MD is Attending Physician. snw 19:40 No provider procedures requiring assistance completed. Patient did not have IV access lw1 during this emergency room visit. Administered Medications: 18:15 Drug: fentaNYL (PF) 50 mcg Route: IM; Site: right ventrogluteal; hb 19:44 Follow up: Response: No adverse reaction; Pain is decreased lw1 18:15 Drug: Phenergan 25 mg Route: IM; Site: right ventrogluteal; hb 19:44 Follow up: Response: No adverse reaction; Nausea is decreased lw1 18:15 Drug: Simethicone 240 mg Route: PO; hb 19:44 Follow up: Response: No adverse reaction; Pain is decreased lw1 Outcome: 19:22 Discharge ordered by . sncristian 19:41 Discharged to home ambulatory, with family. lw1 19:41 Condition: stable 19:41 Discharge instructions given to patient, Instructed on discharge instructions, follow up and referral plans. medication usage, Demonstrated understanding of instructions, follow-up care, medications, Prescriptions given X 2. 19:45 Patient left the ED. lw1 Signatures: Connie Sarah, FINE ARTS TEACHER-C FINE ARTS TEACHER-Csnw Charlene Bernabe RN RN Asha Mendoza RN RN Dariana Fox [facility] Ashanti Teran formerly [facility], [facility] Saloni Guillory RN RN lw1
--- NOTE | 2020-02-14 19:23 | EDPHYS ---
Physician Documentation [facility] Name: Evelyn Chawla Age: 39 yrs Sex: Female : 1980 Arrival Date: 02/14/2020 Time: 17:33 Bed 7 Private MD: ED Physician Branden Piña HPI: 02/13 18:02 This 39 yrs old Female presents to ER via Ambulatory with complaints of Post snw Surgical Pain, Flank Pain. 18:02 Onset: The symptoms/episode began/occurred acutely. Associated signs and symptoms: The snw patient has no apparent associated signs or symptoms. Modifying factors: The patient symptoms are alleviated by nothing, the patient symptoms are aggravated by stimulation. The patient has experienced similar episodes in the past, multiple times. The patient has been recently seen by a physician: a counselor/art therapist, with similar presenting complaints, and apparently given a diagnosis of had MRCP, no acute abnormalities. GI specialist states pt will need further surgical procedure. Historical: - Allergies: 17:42 No Known Allergies; hb - Home Meds: 17:42 gabapentin 300 mg Oral cap [Active]; Hydrocodone-Acetaminophen Oral [Active]; Lorazepam hb Oral [Active]; - PMHx: 17:42 interstitial cystitis; Mieners disease; stage 2 billiary disease; trigeminal neuralgia; hb - PSHx: 17:42 Oophorectomy; Stent to biliary tract; Cholecystectomy; Hysterectomy; hb - Immunization history:: Adult Immunizations up to date. - Social history:: Smoking status: Patient denies any tobacco usage or history of. ROS: 18:02 Constitutional: Negative for fever, chills, and weight loss, Eyes: Negative for injury, snw pain, redness, and discharge, ENT: Negative for injury, pain, and discharge, Neck: Negative for injury, pain, and swelling, Cardiovascular: Negative for chest pain, palpitations, and edema, Respiratory: Negative for shortness of breath, cough, wheezing, and pleuritic chest pain, Back: Negative for injury and pain, : Negative for injury, bleeding, discharge, and swelling, MS/Extremity: Negative for injury and deformity, Skin: Negative for injury, rash, and discoloration, Neuro: Negative for headache, weakness, numbness, tingling, and seizure, Psych: Negative for depression, anxiety, suicide ideation, homicidal ideation, and hallucinations. 18:02 Abdomen/GI: Positive for abdominal pain, abdominal cramps. Exam: 18:01 Constitutional: This is a well developed, well nourished patient who is awake, alert, snw and in no acute distress. Head/Face: Normocephalic, atraumatic. Eyes: Pupils equal round and reactive to light, extra-ocular motions intact. Lids and lashes normal. Conjunctiva and sclera are non-icteric and not injected. Cornea within normal limits. Periorbital areas with no swelling, redness, or edema. ENT: Nares patent. No nasal discharge, no septal abnormalities noted. Tympanic membranes are normal and external auditory canals are clear. Oropharynx with no redness, swelling, or masses, exudates, or evidence of obstruction, uvula midline. Mucous membranes moist. Neck: Trachea midline, no thyromegaly or masses palpated, and no cervical lymphadenopathy. Supple, full range of motion without nuchal rigidity, or vertebral point tenderness. No Meningismus. Chest/axilla: Normal chest wall appearance and motion. Nontender with no deformity. No lesions are appreciated. Cardiovascular: Regular rate and rhythm with a normal S1 and S2. No gallops, murmurs, or rubs. Normal PMI, no JVD. No pulse deficits. Respiratory: Lungs have equal breath sounds bilaterally, clear to auscultation and percussion. No rales, rhonchi or wheezes noted. No increased work of breathing, no retractions or nasal flaring. Back: No spinal tenderness. No costovertebral tenderness. Full range of motion. Skin: Warm, dry with normal turgor. Normal color with no rashes, no lesions, and no evidence of cellulitis. MS/ Extremity: Pulses equal, no cyanosis. Neurovascular intact. Full, normal range of motion. Neuro: Awake and alert, GCS 15, oriented to person, place, time, and situation. Cranial nerves II-XII grossly intact. Motor strength 5/5 in all extremities. Sensory grossly intact. Cerebellar exam normal. Normal gait. Psych: Awake, alert, with orientation to person, place and time. Behavior, mood, and affect are within normal limits. 18:01 Abdomen/GI: Inspection: abdomen appears normal, Bowel sounds: diminished, Palpation: moderate abdominal tenderness, in the right upper quadrant, voluntary guarding, involuntary guarding. Vital Signs: 17:41 BP 150 / 97; Pulse 77; Resp 18; Temp 97.8(TE); Pulse Ox 98% on R/A; Weight 50.35 kg; ss Height 5 ft. 4 in. (162.56 cm); Pain 7/10; 18:30 BP 120 / 70; Pulse 69; Resp 15; Pulse Ox 99% ; hb 19:42 BP 126 / 82; Pulse 70; Resp 20; Pain 5/10; lw1 17:41 Body Mass Index 19.05 (50.35 kg, 162.56 cm) ss MDM: 17:47 Patient medically screened. snw 19:27 Data reviewed: vital signs, nurses notes. Data interpreted: Pulse oximetry: on room air snw is 99 %. Interpretation: normal. Counseling: I had a detailed discussion with the patient and/or guardian regarding: the historical points, exam findings, and any diagnostic results supporting the discharge/admit diagnosis, the need for outpatient follow up, to return to the emergency department if symptoms worsen or persist or if there are any questions or concerns that arise at home. Special discussion: Based on the patient's Hx, exam, and Dx evaluation, there is no indication for emergent surgery or inpatient Tx. It is understood by the patient/guardian that if the Sx's persist or worsen they need to return immediately for re-evaluation. Based on the history and exam findings, there is no indication for further emergent testing or inpatient evaluation. I discussed with the patient/guardian the need to see the primary care provider for further evaluation of the symptoms. Administered Medications: 18:15 Drug: fentaNYL (PF) 50 mcg Route: IM; Site: right ventrogluteal; hb 19:44 Follow up: Response: No adverse reaction; Pain is decreased lw1 18:15 Drug: Phenergan 25 mg Route: IM; Site: right ventrogluteal; hb 19:44 Follow up: Response: No adverse reaction; Nausea is decreased lw1 18:15 Drug: Simethicone 240 mg Route: PO; hb 19:44 Follow up: Response: No adverse reaction; Pain is decreased lw1 Disposition: 02/14/20 19:22 Discharged to Home. Impression: Upper abdominal pain, unspecified, Gas pain. - Condition is Stable. - Discharge Instructions: Abdominal Pain, Adult, Biliary Colic, Adult, Intestinal Gas and Gas Pains, Pediatric, Rehydration, Adult. - Prescriptions for simethicone - take 1 unit by ORAL route 2-4 times daily; 1 box. promethazine 25 mg Oral Tablet - take 1 tablet by ORAL route every 6 hours As needed; 20 tablet. - Work release form, Medication Reconciliation Form, Thank You Letter, Antibiotic Education, Prescription Opioid Use form. - Follow up: Emergency Department; When: As needed; Reason: Worsening of condition. Follow up: Private Physician; When: 2 - 3 days; Reason: Recheck today's complaints, Continuance of care, Re-evaluation by your physician. Addendum: 02/16/2020 13:59 Co-signature as Attending Physician, Branden Piña MD I agree with the assessment and k dr plan of care. Signatures: Branden Piña MD MD [facility] Connie Sarah, DENTAL INSURANCE COORDINATOR-C DENTAL INSURANCE COORDINATOR-Csnw Asha Mendoza RN RN Saloni Guillory RN RN lw1 Corrections: (The following items were deleted from the chart) 02/13 19:45 19:22 02/14/2020 19:22 Discharged to Home. Impression: Upper abdominal pain, lw1 unspecified; Gas pain. Condition is Stable. Forms are Medication Reconciliation Form, Thank You Letter, Antibiotic Education, Prescription Opioid Use. Follow up: Emergency Department; When: As needed; Reason: Worsening of condition. Follow up: Private Physician; When: 2 - 3 days; Reason: Recheck today's complaints, Continuance of care, Re-evaluation by your physician. snw
[2020-02-14 20:04] VITALS: TEMP 97.8
[2020-02-14 20:06] VITALS: O2SAT 99
[2020-02-14 20:07] VITALS: BP 126/82
== END 2020-02-14 19:45 | disposition home or self-care (01) ==
LOC: ER 17:30
DX: R14.1 Gas pain (principal); K83.9 Disease of biliary tract, unspecified
CPT/HCPCS: 96372; 99283; J2550; J3010

== ENCOUNTER 2021-01-17 13:28 | Emergency (ER) | payer OTHER ==
--- OUTSIDE RECORDS SUMMARY | 2021-01-17 13:33 | XMS REPORT | Continuity of Care Document ---
:[address] [facility] t Address [address] [place] [address] [place] [id number] Care Team Providers Name Role Phone Jannet Menjivar MD Primary Care Physician EDISON Attending Clinician Unavailable Shahid Calle MD Attending Clinician Lor STEELE Attending Clinician Alan STEELE Attending Clinician LOR Attending Clinician Unavailable [address] Room Attending Clinician Unavailable Edison STEELE Attending Clinician EDISON Attending Clinician Unavailable Robert Barry MD Attending Clinician Dez Morton Attending Clinician LOR Admitting Clinician Unavailable EDISON Admitting Clinician Unavailable Payers Payer Name Policy Type Policy Effective Date Expiration Date Sour ce Number COMMERCIAL [id number] 2021 [place] MISCMISC 00:00:00 Confucianism COMMERCIALxxxxx7 -Pre sentCommercial CIG[employer] - MGD [id number] 2019 [facility] 00:00:00 [facility] Center [id number] Problems Condition Condition Condition Status Onset Resolution Last Treating Co mments Source Name Details Category Date Date Treatment Clinician Date Hepatic Hepatic Disease Active [facility]- [facility] 00:[facility]: Medical 00 [place] ADHD ADHD Disease Active 2019- [facility] - [facility] Medical 00 [place] Arthritis Arthritis Disease Active 2019- [facility] 03[facility] - 00:[facility]: Medical 00 [place] Asthma Asthma Disease Active 2019- [facility] 03[facility] - 00:[facility]: Medical 00 [place] Meniere Meniere Disease Active 2019- [facility] disease disease 03-16 [facility] - 00:00: Medical 00 [facility] [place] Disease Active 2019- [facility] syndrome syndrome 03-16 [facility] - 00:00: Medical 00 Center 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 03-16 [facility] - 00:00: Medical 00 [place] Reflux Reflux Disease Active 2019- [facility] esophagiti esophagiti 03-16 [facility]yl kes - s s 00:00: Medical 00 Center Allergies, Adverse Reactions, Alerts Allergy Allergy Status Severity Reaction(s) Onset Inactive Treating Comm ents Source Name Type Date Date Clinician Ciproflo Drug Active Rash [facility] xacin Allergy 03-16 [facility] - (Mixture 00:00: Medical ) 00 Center Other Propensi Active 2019- Oral [facility] ty to 02-26 Steroids- [facility] - adverse 00:00: "flu-like Medica l reaction 00 achiness" Yenifer de los santos Social History Social Habit Start Date Stop Date Quantity Comments Source History of tobacco Current smoker [facility] - use [facility] Sex Assigned At [facility] Cigarettes smoked 2020-03-16 2020-03-[address] [facility] - current (pack per 00:00:00 00:00:00 Medical Center day) - Reported Tobacco use and 2020-03-16 2020-03-[address] [facility] k[facility] - exposure 00:00:00 00:00:00 [facility] Alcohol intake 2020-03-16 2020-03-[address] [facility] - 00:00:00 00:00:00 non-drinker of Medical Ce nter alcohol (finding) Smoking Status Start Date Stop Date Source Former smoker 2020-03-16 00:00:00 2020-03-16 00:00:[address] [facility] - [facility] Center Medications Ordered Filled Start Stop Current Ordering Indication Dosage Frequency Signature Comments Components Source Medication Medication Date Date Medication? Clinician (SIG) Name Name tamsulosin 2020-0 2020- No .4mg QD Take [address] (FLOMAX) 03-20 capsule [facility] - 0.4 mg Cap 00:00: 23:59 (0.4 mg Med ical 24 hr 00 :00 total) by Center capsule mouth daily for 7 days. lidocaine 2020-0 2020- No 2{patch Q24H Place [address] (LIDODERM) 03-20 } patches [facility] - 5 % patch 00:00: 23:59 onto the Med ical 00 :00 skin daily Center for 4 days Remove & Discard patch within 12 hours or as directed by . HYDROcodone 2020-0 Yes 1{tbl} Take [address] -acetaminop 4-30 tablet by Geno saldana (NORCO 13:18: mouth Medica l 10-325) 17 every 6 Center 10-325 mg (six) per tablet hours as needed for Pain. dextroamphe 2020-0 Yes 20mg QD Take [address] tamine-amph 4-30 by mouth Luke s - etamine 13:18: every Medical (ADDERALL 17 morning. Center XR) 20 MG 24 hr capsule promethazin 2020-0 Yes 25mg Take [address] [facility] e 4-30 by mouth [facility] - (PHENERGAN) 13:18: every 6 Med ical 25 MG 17 (six) Center tablet hours as needed for Nausea. albuterol 2020-0 Yes 2.5mg Take 2.[address] (PROVENTIL) 4-30 mg by [facility] - 2.5 mg /3 13:18: nebulizati Me dical mL (0.083 17 on every 6 Cent er %) (six) nebulizer hours as solution needed for Wheezing. LORazepam 2020-0 Yes 1mg Take [address] (ATIVAN) 1 4-30 by mouth [facility] - MG tablet 13:18: every 6 Medic al 17 (six) Center hours as needed for Anxiety. dicyclomine 2020-0 Yes 10mg Take [address] (BENTYL) 10 4-30 by mouth 4 Meryl kes - MG capsule 13:18: (four) Medic al 17 times Center daily before meals and nightly. pregabalin 2020-0 Yes 75mg Q.5D Take [address] (LYRICA) 75 4-30 by mouth 2 Meryl kes - MG capsule 13:18: (two) Medica l 17 times Center daily. ALBUTEROL Yes Inhale by [facility] INHL 4-30 mouth via [facility] - 13:18: inhaler. [address] cyclobenzap 2020- No 10mg Take [address] rine 4-30 05-05 tablet (10 [facility] - (FLEXERIL) 00:00: 23:59 mg total) M edical 10 MG 00 :00 by mouth 3 Center tablet (three) times daily as needed for Muscle spasms for up to 5 days. traMADoL 2019- No 100mg Take [address] 100 mg Tab 4-30 05-05 mg by [facility] - 00:00: 23:59 mouth Medical 00 :00 every 6 Center (six) hours as needed for up to 5 days. Max Daily Amount: 400 mg ketorolac 2019- No 10mg Take 1 [facility] t (TORADOL) 4-30 05-04 tablet (10 Geno es - 10 mg 00:00: 23:59 mg total) Medica l tablet 00 :00 by mouth Center every 6 (six) hours as needed for Pain for up to 4 days. ondansetron 2019- No 4mg Take [address] (ZOFRAN-ODT 4-30 05-04 tablet (4 Meryl kes - ) 4 MG 00:00: 23:59 mg total) Medic al disintegrat 00 :00 by mouth Cent er ing tablet every 8 (eight) hours as needed for up to 4 days. clonazePAM 2019- No 1mg Take [address] (KLONOPIN) 3-17 03-17 by mouth 2 Meryl kes - 1 MG tablet 14:12: 00:00 (two) Medi amrit 11 :00 times Center daily as needed for Anxiety. Vital Signs Vital Name Observation Time Observation Value Comments Source Systolic blood 2020-03-19 12:27:00 120 mm[Hg] [facility] Diastolic blood 2020-03-19 12:27:00 60 mm[Hg] [facility] Heart rate 2020-03-19 12:27:00 86 /min [facility] Body temperature 2020-03-19 12:27:00 37.17 Eladia [facility] Respiratory rate 2020-03-19 12:27:00 18 /min [facility] Oxygen saturation in 2020-03-19 12:27:00 98 /min [facility] Arterial blood by Medical Ce nter Pulse oximetry Body height 2020-03-16 07:55:00 162.6 cm [facility] Body weight 2020-03-16 07:55:00 51.3 kg [facility] BMI 2020-03-16 07:55:00 19.41 kg/m2 [facility] Procedures Procedure Date / Time Performed Performing Clinician Aguilar BRAVO-19 QUALITATIVE 2021-01-14 07:51:00 Elliot Hogan on [facility] PCR BASIC METABOLIC PANEL 2020-03-19 05:14:00 Yonas Gonzalez [address] HEPATIC FUNCTION PANEL 2020-03-19 05:14:00 Yonas Gonzalez [facility] CBC (HEMOGRAM ONLY) 2020-03-19 05:14:00 Yonas Gonzalez [facility] MAGNESIUM 2020-03-19 05:14:00 Yonas Gonzalez [facility] PHOSPHORUS 2020-03-19 05:14:00 Yonas Gonzalez [facility] BASIC METABOLIC PANEL 2020-03-18 05:33:00 Yonas Gonzalez [address] HEPATIC FUNCTION PANEL 2020-03-18 05:33:00 Yonas Gonzalez [facility] CBC (HEMOGRAM ONLY) 2020-03-18 05:33:00 Yonas Gonzalez [facility] MAGNESIUM 2020-03-18 05:33:00 Yonas Gonzalez [facility] PHOSPHORUS 2020-03-18 05:33:00 Yonas Gonzalez [facility] TRANSFUSION SERVICE 2020-03-17 18:01:49 Provider, Default [facility] - REPORT - SCAN Scanning [facility] BASIC METABOLIC PANEL 2020-03-17 05:21:[address] [facility] (7) [facility] Center HEPATIC FUNCTION PANEL 2020-03-17 05:21:00 Yonas Gonzalez [facility] CBC (HEMOGRAM ONLY) 2020-03-17 05:21:00 Yonas Gonzalez I [facility] TISSUE EXAM 2020-03-16 10:21:00 Luis Yang [facility] ANESTHESIA SPINAL BLOCK 2020-03-16 09:18:52 [facility] 2020-03-16 08:49:00 Lor [facility] ABORH, MANUAL 2020-03-16 08:41:00 Beulah Olmedo [facility] TYPE AND SCREEN, 2020-03-16 08:35:00 [facility] Center POCT , URINE 2020-03-16 08:10:00 Emanuel Phillips [facility] CT ABDOMEN WITH & 2020-03-10 11:04:00 Lor [facility] es - WITHOUT IV CONTRAST Medical Cent er REPORT OF PROCEDURE - 2020-02-07 14:39:15 Elliot Hogan [facility] - ENDOSCOPY [facility] [place] ERCP 2020-02-07 14:20:00 Elliot Hogan [facility] FINE NEEDLE ASPIRATION 2020-02-07 14:14:00 Elliot Hogan [facility] - BY CLINICIAN [facility] FINE NEEDLE ASPIRATE 2020-02-07 14:14:00 [facility] - [facility] REQUEST [facility] UPPER ENDOSCOPY,FNA 2020-02-07 13:52:00 Elliot Hogan [facility] - W/ULTRASOUND [facility] PROCEDURE W/ C-ARM 2020-02-07 13:52:00 Elliot Hogan [facility] ERCP,PAPILLOTOMY 2020-02-07 13:52:00 Elliot Hogan [facility] ERCP,BALLOON SWEEPING 2020-02-07 13:52:00 Elliot Hogan [facility] Plan of Care Planned Activity Planned Date Details Comments Source Future Scheduled 2020-11-20 DEPRESSION SCREENING [facility] Test 00:00:00 (12+) [code = Medical Center DEPRESSION SCREENING (12+)] Future Scheduled 2020-07-21 INFLUENZA VACCINE (#1) [facility] Test 00:00:00 [code = INFLUENZA Medical Ce nter VACCINE (#1)] Future Scheduled 2020-06-20 INFLUENZA VACCINE [place] [facility] Test 00:00:00 [code = INFLUENZA VACCINE] Future Scheduled [facility] malignant neoplasm of Medica l Center cervix (procedure) [code = 805754546] Future Scheduled 1999 Screening for [facility]ist Test 00:00:00 malignant neoplasm of cervix (procedure) [code = 627222080] Future Scheduled 1997 HEPATITIS B VACCINE ([address] [facility] - Test 00:00:00 of 3 - Risk 3-dose Medical C enter series) [code = HEPATITIS B VACCINE (1 of 3 - Risk 3-dose series)] Future Scheduled 1996 Hepatitis C screening [place] [facility] Test 00:00:00 (procedure) [code = 771263166] Future Scheduled 1994 COVID-19 VACCINE (1 of [place] [facility] Test 00:00:00 2) [code = COVID-19 VACCINE (1 of 2)] Future Scheduled 1984 PNEUMOCOCCAL VACCINE [facility] - Test 00:00:00 0-64 YRS (1 of 1 - Medical C enter PPSV23) [code = PNEUMOCOCCAL VACCINE 0-64 YRS (1 of 1 - PPSV23)] Encounters Start End Encounter Admission Attending Care Care Encounter Source Date/Time Date/Time Type Type Clinicians Facility Department ID 2021-01-14 2021-01-14 Outpatient EDISON [facility] [id number] [place] 00:00:00 00:00:[address] 2020-11-18 2020-11-18 [facility] [id number] 08:46:35 23:59:00 Encounter López Pierre [id number] [place] [id number] [facility] [id number] 2020-10-23 2020-10-23 [facility] Luc [facility] [id number] 08:01:38 11:46:56 Visit López Pierre [id number] [place] [id number] [facility] [id number] [facility] 092 Building Results Test Description Test Time Test Comments Results Result Comments Source Basic Metabolic Panel 2020-03-19 06:32:00 Test Item Value Reference Range Interpretation Comme nts Sodium (test code = 2951-2) 137 meq/L 136-145 Potassium (test code = 3.7 meq/L 3.5-5.1 2823-3) Chloride (test code = 105 meq/L 98-107 2075-0) CO2 (test code = 8-9) 23 meq/L 22-29 BUN (test code = 3094-0) 6 mg/dL 7-21 L Creatinine (test code = 0.71 mg/dL 0.57-1.25 2160-0) Glucose (test code = 143 mg/dL 70-105 H 2345-7) Calcium (test code = 8.3 mg/dL 8.4-10.2 L 89655-4) EGFR (test code = 51649-0) 91 mL/min/1.73 sq m ESTIMATED GFR IS NOT ACCURATE CREATININE TRINA ELBA IN PREDICTING GLOMERULAR FILT RATION RATE. ESTIMATED GFR IS NOT APPLICABLE FOR DIALYSIS PATIEN MOSES (test code = MOSES) [employer] ID - [place] Lab Interpretation (test Abnormal code = 09175-2) [facility] [id number] 06:32:00 Test Item Value Reference Range Interpretation Comments Protein, Total (test 6.2 See_Comment [Autom ated code = 2885-2) message] The system which generated this result transmit vandana reference range : 6.0 - 8.3 gm/dL . The reference range was not u sed to interpret th is result as normal/abnormal . Albumin (test code = 3.5 g/dL 3.5-5 32692-5) Total Bilirubin (test 0.6 mg/dL 0.2-1.2 code = 1975-2) Bilirubin, Direct 0.3 mg/dL 0.1-0.5 (test code = 1967-7) Alkaline Phosphatase 50 U/L 40-150 (test code = 6768-6) AST (test code = 54 U/L 5-34 H 1920-8) ALT (test code = 126 U/L 6-55 H 1742-6) MOSES (test code = MOSES) [employer] [place] - [place] Lab Interpretation Abnormal (test code = 47731-8) [facility]2020-04-30 06:32:00 Test Item Value Reference Range Interpretation Comments Magnesium (test code = 1.9 mg/dL 1.6-2.6 78887-9) MOSES (test code = MOSES) [employer] [place] - [place] Lab Interpretation (test Normal code = 54978-1) [facility]30 06:32:00 Test Item Value Reference Range Interpretation Comments Phosphorus (test code = 1.8 mg/dL 2.3-4.7 L 2777-1) MOSES (test code = MOSES) [employer] ID - [place] Lab Interpretation (test Abnormal code = 37571-5) [facility]2020-04-30 06:32:00 Test Item Value Reference Range Interpretation Comments PHOSPHORUS (BEAKER) (test code = 1.8 mg/dL 2.3-4.7 L 604) [employer] ID - [id number] 06:32:00 Test Item Value Reference Range Interpretation Comments MAGNESIUM (BEAKER) (test code = 1.9 mg/dL 1.6-2.6 627) [employer] ID - LABASIC METABOLIC [id number] 06:32:00 Test Item Value Reference Range Interpretation Comments SODIUM (BEAKER) 137 meq/L 136-145 (test code = 381) POTASSIUM (BEAKER) 3.7 meq/L 3.5-5.1 (test code = 379) CHLORIDE (BEAKER) 105 meq/L 98-107 (test code = 382) CO2 (BEAKER) (test 23 meq/L 22-29 code = 355) BLOOD UREA NITROGEN 6 mg/dL 7-21 L (BEAKER) (test code = 354) CREATININE (BEAKER) 0.71 mg/dL 0.57-1.25 (test code = 358) GLUCOSE RANDOM 143 mg/dL 70-105 H (BEAKER) (test code = 652) CALCIUM (BEAKER) 8.3 mg/dL 8.4-10.2 L (test code = 697) EGFR (BEAKER) (test 91 mL/min/1.73 ESTIMA VANDANA GFR IS code = 1092) sq m NOT ACCURATE CREATININE CLEARANCE IN PREDICTING GLOMERULAR FILTRATION RATE . ESTIMATED GFR I S NOT APPLICABLE FOR DIALYSIS PATIEN TS. [employer] Apprentice ID - LAHEPATIC FUNCTION [id number] 06:32:00 Test Item Value Reference Range Interpretation Comments TOTAL PROTEIN (BEAKER) (test code = 6.2 gm/dL 6.0-8.3 770) ALBUMIN (BEAKER) (test code = 1145) 3.5 g/dL 3.5-5.0 BILIRUBIN TOTAL (BEAKER) (test code 0.6 mg/dL 0.2-1.2 = 377) BILIRUBIN DIRECT (BEAKER) (test 0.3 mg/dL 0.1-0.5 code = 706) ALKALINE PHOSPHATASE (BEAKER) (test 50 U/L 40-150 code = 346) AST (SGOT) (BEAKER) (test code = 54 U/L 5-34 H 353) ALT (SGPT) (BEAKER) (test code = 126 U/L 6-55 H 347) [employer] ID - LACBC (Hemogram only)2020-03-19 05:59:00 Test Item Value Reference Range Interpretation Comments WBC (test code = 6690-2) 8.4 See_Comment [A utomated message] The system [employer] generated this result transmitted ref erence range: 3.5 - 10 .5 K/L. The refe rence range was not u sed to interpret this result as normal/abnor mal. RBC (test code = 789-8) 4.28 See_Comment [Au tomated message] The system [employer] generated this result transmitted ref erence range: 3.93 - 5 .22 M/L. The refe rence range was not u sed to interpret this result as normal/abnor mal. MCHC (test code = 786-4) 32.5 See_Comment [A utomated message] The system whic h generated this result transmitted ref erence range: 32.2 - 3 5.5 GM/DL. The refe rence range was not u sed to interpret this result as normal/abnor mal. Hematocrit (test code = 38.1 % 34.1-44.9 4544-3) MCV (test code = 787-2) 89.0 fL 79.4-94.8 MCH (test code = 785-6) 29.0 pg 25.6-32.2 RDW (test code = 788-0) 13.2 % 11.7-14.4 Platelets (test code = 151 See_Comment [Aut omated message] 777-3) The system [employer] generated this result transmitted ref erence range: 150 - 45 0 K/CU MM. The referen ce range was not u sed to interpret this result as normal/abnor mal. MPV (test code = 52103-3) 11.1 fL 9.4-12.3 nRBC (test code = 413) 0 See_Comment [Aut omated message] The system [employer] generated this result transmitted ref erence range: 0 - 0 /1 00 WBC. The refere nce range was not u sed to interpret this result as normal/abnor mal. Lab Interpretation (test Normal code = 39594-3) [facility] (HEMOGRAM ONLY)2020-03-19 05:59:00 Test Item Value Reference Range Interpretation Comments WHITE BLOOD CELL COUNT (BEAKER) 8.4 K/ L 3.5-10.5 (test code = 775) RED BLOOD CELL COUNT (BEAKER) 4.28 M/ L 3.93-5.22 (test code = 761) HEMOGLOBIN (BEAKER) (test code = 12.4 GM/DL 11.2-15.7 410) HEMATOCRIT (BEAKER) (test code = 38.1 % 34.1-44.9 411) MEAN CORPUSCULAR VOLUME (BEAKER) 89.0 fL 79.4-94.8 (test code = 753) MEAN CORPUSCULAR HEMOGLOBIN 29.0 pg 25.6-32.2 (BEAKER) (test code = 751) MEAN CORPUSCULAR HEMOGLOBIN CONC 32.5 GM/DL 32.2-35.5 (BEAKER) (test code = 752) RED CELL DISTRIBUTION WIDTH 13.2 % 11.7-14.4 (BEAKER) (test code = 412) PLATELET COUNT (BEAKER) (test 151 K/CU MM 150-450 code = 756) MEAN PLATELET VOLUME (BEAKER) 11.1 fL 9.4-12.3 (test code = 754) NUCLEATED RED BLOOD CELLS 0 /100 WBC 0-0 (BEAKER) (test code = 413) Tissue [id number] 10:16:00 Test Item Value Reference Range Interpretation Comments Case Report (test code Surgical Pathology = 104) Report Case: [id number] Authorizing Provider: Luis Yang MD Collected: 03/16/2020 10:21 AM Ordering Location: [facility] Received: 03/16/2020 11:20 AM SERVICES Pathologist: Luis Dubois MD Specimen: Tumor, Liver Tumor, Segment 2 DIAGNOSIS (test code = [id number] 3220) uZzEwMzNcZnRuYmpcdWMxIH fsjqQzTPxhu5YcS7ZlLnCcM FxhbnNpXGRlZmxhbmcxMDMz LKO5czShSJFdWLtxDBHiNHy aTk2tsNMhpWqtCuZiXDTyw4 yevrSIjaxovQv3e1ijNFRnY uA9jCVuOEarO8uhtrKjyUAh TWZvZJr3wE14EVYbqM0thMW pAXontyMxVxA7DRduRBVdVt U1KRNgsWNoXYIxF3tsQQZcA LiyHEYvDMdraJSjJIR3cNyy a4V2zDFxwRAldFsqYeIvHeV qLSUEp2PnPRv0gKxyI1EqSH JvPeI5xPKgNAHsCJixZTIeE MAnbpO4zS68UPdmsnW2bRPk c3Oaz94qf276eV9uxYQgNBQ 4JINtHNHarYFyNQAaSVR1YA DlnIQhS7l4NgLwtXUgH6O6W kGdzFHgS0X2KqJlvFMfP1N5 OuVyaGKyECKmvQKbCd5mdIH ejLAjld2xld45VGX0k7YkpC jdNQL6NMV1EwAtEo0wiZNqM LNgER0uMiJhdILwRHKbsq64 iLcyBEarjlDxkZ5iPwEjFZX xmGTsTNPqFW8xjKWjYRYijG 5ucmxjXHBnYnJkcmhlYWRcc XeznyHcAb1iuAjcIDD6POhk W7qyrY2uQkO9YIczP5aqjW2 wFTs5VExxnZG7BCGhcG3bET 4gijhhw0gkUzUkZW4gafqip 9scQyPoDM6orlb9f5cbRyJs PQ9tpbrgw1nxWxElBQtiHDN hjpsqFREqc7XevtwpFBOtx8 JqF4NzjIjnB23teVisV71bU RPagXrbwP8mqWnvjB9vHcBu ZnMyNFxxbFxwbGFpblxmMVx mczIwXGxhbmcxMDMzXGhpY2 tqEpEkCJEdtKmsBIlat4RwA AZbJBIjYcJgLA6wTPoFLBGw OSAJB78FTeDcGrbgUyQTRGZ TKK8EPfukXDNeQ2AVMBKPQ0 QUSZqBKUOSH5hXNXBbILKnL SBDTSBJTiBHUkVBVEVTVCBE BD6NJuWNR51hJDFVQSSDUmX gQVQgVEhFIENBVVRFUklaRU ClGJJOE5yVChmnYKYgLsQLB MDGAwDmHg3JSD2ZMCpAUdKS Q7irJWJmew32JQC8OgQyq2K 9YPH5UBWrDGAis0rfBYZhwW FuZzEwMzNcZnRuYmpcdWMxX MArWoEny7bnf770eAAxd2cn UASwWdP7jUHwYWZzxYAcF46 5JRTaOAjqz2daf9JxBAOdgW Tob4L9ZZVQdiivgCp0nQarN 75iy6T5WcipR4zxHORrOPXx Q0RlUQ9xIFBkXwn8PUB3UZH 5QRDfNTWxX1VdJJ3gZNLbxU UkOBa1d4opaPsbVVWxUAK5r 0miEXqnvcFpUI4ukw8veQm4 h1qchkSyFBRdSHNboJAENQG aZ8XfyTjaSu1yzDq0tNugVr jvRBT3Jlf1KV0hid19dmi2u BmgXTZrqcmgCpT3ASbyHCDj pbtaTTd0NCmlZQJizXP8UPD hrESrD4EqLGCtUZ5cbqu2IM U1JFvwXPLlOxO4JJOsyWMhD VFgnYgfHMajo817RAL8PxHs OY2qY9Xvp0I6iP6bbLSyKQZ myKItYgQwLHUggf1hyNJjYH evs1EuPGG3ftL7wOOapRCpR YEhTbK0FMpmFQ8orp11CPLh RVJ6hx2gsMQjeEtwnoVetIN aWOweX3CgNGIeb160QGSaO8 UpFEWrr3X8rfAsFtKiWPThs ZC6eyN2ZULxSZ4fgpfwp5bd RTfzPZanALIocwM1ujT4RNY qtPYzT1DtmI0mFJBzTD0rfc lav8bdZOB2KMlpUNQkDQG4U iMlTHEtq0Xhfql8SjUyk2Ph gAZtVSqbN09ls883PEXucpT mN3pspXElbylsoJJqpdkrUC tjcmR2YFCnMViraacwBYDvX PjqZ0vdSxBgLCLpdCgzHSby k1TfDJXwWDTjWpKkcQGvDAW vRdd0LTYwbBZwKAEeQuOzJ0 mhlrldRyILDPIgh4psS1rqv FDQzYPmI3SaYQwuczAqZLeu WWvbEUQ9YUP4Ql84TaI6LGB hcn19 CPT Code(s) (test code k3hldOSoUUDpiJZsWrAoZLG = 3358) xKJVdr4syAVMwuPXhZnRbBd NcZnRuYmpcdWMxXGRlZmYwe 0ngu471xEUap7jlFRCdRsP2 vKUkAVRyaFLwL416h8snf5x cwhPfsVY5LZCpCAK0YRxojw EbkpS9FFhjrNCpPcM7EUyyv nTkADqawcQbzcXkCyb5QPHk V269PHE3mNgpz7oyYCO2QVJ gGZAfJkIhMb8qgOOiI208CB QwKEQCOBJyeNf8OMXrgfRgi aAslCDCr204B830s7dxAFWv pfEbsSwOybsag9hkU188LEK hcGVydzEyMjQwXHBhcGVyaD O0YIOyVY0xkllyErAtDK9at nqyXpFeIZ4mhbw7VeOjSA6o cmdiNzIwXGhlYWRlcnkwXGZ ph3DdcqzlXG8bX5Lpn3K3gD 9maXRcZGVmdGFiNzIwXGZvc n6ooRCxONwxp3XgUXJ9dzF1 uWWutJKrQNJmCF74Ohgix4Q qKnwdTUZ4MHYbmkXfb9Joo0 ngJiGebeUtP6rmE4JoPYFtZ ALmLPTiGgDuofKbp2Sla3Kr aYGpwBv8x9bsZHJzYCOntQa ty9mzSAZ8CXJfX0Q5wJJut9 btBFlzJSWqnCX4mtzvSXvyP SQeyiJ7senwYHmrDXNfnUE5 wttxRWlaLLNwFvC2dzyfVFp wMFLpRAE4IKjej389ILZ0MJ xzYmtwYWdlXHBnbmNvbnRcc GduZGVjXHBsYWluXHBsYWlu XGYwXGZzMjRccWxccGxhaW5 uCbOkXeZxKPwyDK3yTYYuP1 vfsPDjJXNvIHHmX1juZuMks Z3azMqeXBptilNnTIu2VmR3 XHBhcn0= CLINICAL HISTORY (test n3cmmPItMDYzkCSgCpEmEIS code = 3356) zCQRqn2hfNREacRIwIaRyNm NcZnRuYmpcdWMxXGRlZmYwe 8fhv493cAJbp8mmEKJqRrN6 zKUgNTUtaSTqW979r8jej9b uqaNmvSW9LRJxAIT6WEuuer LdczN2DRdrtEXwEnP1BGvqr rBcITcexkCelhUpUhh8EXMm X722BLK2uAorw1ksHFY0EOY sLWVcSuIyKq9sdKCzI862HL XfSLNCYQWetKx1QYSoltBgt tDpvXQKb827U556o6mdUMAb kkYypVcJuchnn2vmD662IXA hcGVydzEyMjQwXHBhcGVyaD Q6XLZvDK8eettlUyBpUO9sn wrxQgFiVZ4vjip7YlFhMA9a cmdiNzIwXGhlYWRlcnkwXGZ ua0EntmenZF4vN0Ghn7E2qH 9maXRcZGVmdGFiNzIwXGZvc w7npZLyZVoyf9SdVKS4irS5 lHEwhWDsANJoPB06Fomzn3B gIiycFUF0CHRovhUzd1Xwu8 esItCvyfBwM7cfL5ToUXPiU EHsVMBoGdBhvxHuk5Djs8Jt fKRgxCn6d1khDQSkMBWbmDf pq9liSUN8FOHqN8Y2cBQde2 ylOMjeFOCbpYK4idvsOZrpZ WPymiL8ttbsFWhvEMOkaUM3 eyjxTMbsJWLfBgJ4ndupPWu zODSaBDO9SNmvk556IIP4BX xzYmtwYWdlXHBnbmNvbnRcc GduZGVjXHBsYWluXHBsYWlu XGYwXGZzMjRccWxccGxhaW5 hRkPdMlXhJUnbUC3eINHnR2 sdzGZiZYZwWKCwB1pbJoYvf D3rtBdwLSvcnaNrTDauigQg EZ8xx8BrGAAurk9= SPECIMEN SOURCE (test i8qonYAfUMOnmJZbCpYdWHR code = 3377) lIPHrp3cmELMacHKaUgQdRw NcZnRuYmpcdWMxXGRlZmYwe 3ryq329sSKdh5dsLWIlYbG2 mAMoFHRxiABoR554HFGxZGn ti5vue1GvSWPfeFRaq1E2RX JPjegklEx5qZwiC30qp5P8C dewI1gjLBRyNMCeK8ZaBB8i RHDxSit3MLA2CVB2JOKkHLR pY9FiII4lERUunTMtNBl6q3 kzwYocMZPbWTB5a7mzGVyyp dCmAW1eui0clOl3g5fwyqAq IPNoWEAbwFSGPJHcW0GauMs vMm9jpYe1yOobMkinXRL8Fm r2GD2yvr99buk7qIjbZPTea nryWqK6BOszPNXlgvcfIKt1 MFxtYXJnbDcyMFxtYXJncjc yMFxtYXJndDcyMFxtYXJnYj itSAnuCHGkWCE4CNpcn041P JN9TPfqy4mpj6vfqDXjEtp0 KKHmLcAfActlSPael4Ccy4l jJLGxsk0dRLR0xRTvzQcan7 P6uDDzZOIeuXDwqvLzAMSmJ yN4DAvfRU8ilc99KBBhANO2 or8lvOOawEjesmFgdVRqSKt wM7LpPIXot822ZWIuH2MvDK Frc8R2xzZkWlMwQPEeeMJ9d jJ7VBWsPAa9cPFydgH3dwTj tVVaA2pabC73WfYptBCjE2B raM06IqQnbQWzR5MhpV24Mv CghLJdB2DqvR87RhPvjGEpF MLlwTYmTv8ctNGmhIPpm1Au iRSsYAmpA66ir977SPJrdgX gA2ztoIFeowmfiSLqelhkZB brhfT0ACDkIBSsACmhIAFaB GZzMjBcbGFuZzEwMzNcaGlj rGxxHBypAbQeZNWqDLpdP9k nNlUaJbWtYVGAMnCkUYg5LD NcaBZzz2OwHJEqH32qvvVsE lxwYXJ9 GROSS DESCRIPTION z8apzTCcZFCncVWvHfZyIDO (test code = 3366) pUQNrv7aiEDJxqRClLhLzFa NcZnRuYmpcdWMxXGRlZmYwe 7uhy397iXZtq1npQLRiQtF2 yCLeOEGezUWtS958a2anl4q zqtQuwWF6VNJlNGV9TBpfim QczfB9XIeukEQbZqK2JWaps xRnDRojiqHssfXjNbi1KHCh F307GTG4pKyyz6edVEQ0DXC mOGPeSsFfIp4irGDfA629XJ GfJWSGWXYofVb3WFTysoEto fBrqPHLg770O481k3kuHAQi qjYuhUrPllgab7sfZ139TMO hcGVydzEyMjQwXHBhcGVyaD I9EYAcCH6dyzutDnJuAL1zu zfzKoYpRN3gwmn8NnYsFS6m cmdiNzIwXGhlYWRlcnkwXGZ nf0YxhdzhJN1uG3Ytr5X7yS 9maXRcZGVmdGFiNzIwXGZvc k7qwKLpFNage8FgFUU4jtJ7 oANdcXSyNUCmYU35Vazdy7M wMmpnREQ8BLFcmxBac6Zwi4 xaZsVhgtUbU1irU3BzMJUpZ WCpPCEfPiTxfcQzn9Bqm1Jk oQLyrRr3u0yrFOYxPNQoeTy js9ehVZG3OQTeT9Y3dGXbb9 gjIHbwSUDbbDD1cyksCBubJ LOzrxX8mvyeIJcnCWPkoZY4 hkbuWLvdQPWgMxM0lgayQPi lTNXaYBC8EOrst133DBH5AK xzYmtwYWdlXHBnbmNvbnRcc GduZGVjXHBsYWluXHBsYWlu XGYwXGZzMjRccWxccGxhaW5 qUgZtRvWzBAglRH0iVBVrQ8 upzXTzIVAdKGEjB9bnBeEkn D1bxSsrNCghilQdOCMbWWVd OVRttKGnnD5tbjPrmwBsYQA laXZlZCBmcmVzaCBsYWJlbG zjLXQ0qHQhWIVsJRGfAFFcZ J57KPebDWNoqmQoLQqakEZu aWNhbCByZWNvcmQgbnVtYmV pKYRzDIYweCIrv4XrQZGdKD Xwb06yoKP2wsXtEiQjprNhS O8iDUkyCLOsTjI3NLPovXGe ByKkU30npSOlDRt5mBCtIJS adiVwh13oo6IweXl6SYDnQY VOiKCmG6Qrr8FeLZIyyiBoY EAvs71kwIDqaDhmERHtCIBc kA8kuLjsAYWOyXOjOXiur5Q pEJPtOCMnwgYycH2cGOxsZX LavRVmDHMlmAgwO0E2mJPoj NfrAP8mURZuUWAuBBPmwV2v aORdrU8yJKBhGru0IVieFO0 aZHWgOHMqsUNfuC6skyOzqf NgNTQtAZpxuVOhBDI1cY7qV SUlbP0kzyH3VJQeCCJtCEbd nzGqsYxleonuR7DoqPpqXsw yba99hvNwnqYrQMImy6GhYP Hwz74dVVNoWNEzUEZviAHzg xbaGS06COarMDJ0XNFaXFBh cL0jIFAhvXQwWESjSHIjpjI aUeKgX52nHxNvuKL8uTZgyY FcQ1txQcOgIKcoZLApqBIim tvlUjXjOKAitfPdmD5zPWvd MSMcPP2iqn46ukZteiBom05 uv8UmApEtDSmqIVRdYIPteZ JoHYwiYDAwwTckFDz9OWU0X a2kySJrVDOrYZO5SR87pZTj aKbvfJ2wJREvUGxfAJMcjnn mEBVtJ4qtlVGaTVQDlxR1fc wgTUhTLCBQQSAoQVNDUClcc GFyfQ== MICROSCOPIC q9oxnMRyXCNyjBIsKhLyMQF DESCRIPTION (test code pWGUdb7ofKXQexTLhDaKeEx = 3371) NcZnRuYmpcdWMxXGRlZmYwe 9bbr066yAVek5dyZYClKtQ9 iKBwZKCnyYTqA062j0aty8p ejiDzxYU0XBVmVZI0DXvlsp ZcbvF3VGdfgMRyRlL7YSlau qYhPBgnrqQwfdQoGfj6DLIt S303NYX7rRhhp2vxHGV5EOF bEPOpIdPtJz3ewNEnF929UD CkQQJBHZQnvZd1UDRywuDig sIovISGq830E734w9zhEWYk onCxfHkRkhroy6szG646DYO hcGVydzEyMjQwXHBhcGVyaD C2UEJxGF9srlkgZxLaUY6nb ialEvDnZD9vgdl6FkYvOQ6m cmdiNzIwXGhlYWRlcnkwXGZ zb5ZmruteRO1uN6Mux4O2cG 9maXRcZGVmdGFiNzIwXGZvc c1stUXmUKjtq2SfZMY9odR8 hHGivVRoJOElWL81Fqvly6O eMnycZML7BRFazqOvn2Jxx2 vwGkNchsSsC6auA2KxIMFbH HQtNIKnPgSdhsKlb5Dyk4Ib iUThqBh0v1ftMFOoNYIalOy gl6znVHJ0MGVbU9R9hBClw6 oaFCalUYKnmMO4zwnpVNubY ZPcgcO4ezcyEXguBLBglFB1 leesRGocTNHqGwZ3lsktHBj gMQPwTMP9FBbgp169WSY9SM xzYmtwYWdlXHBnbmNvbnRcc GduZGVjXHBsYWluXHBsYWlu XGYwXGZzMjRccWxccGxhaW5 bPfFnCjFoZHlnTC5bWXOrC4 qunEQrDCCkDURmD7uhBuHab A0gyVqdNQtyzcPoUTZIFlFT Jb4SQC2uCJQlfv3= Gross assessment was [facility] performed at ([facility], code = 2777) Department of Pathology, [address] [place] [address], Technical component [facility] was performed at ([facility], code = 2778) Department of Pathology, [address] [place] [address] 105[address], Professional component [facility] was performed at ([facility], code = 2779) Department of Pathology, [address] [place] [address], [facility] HospitalT[facility] [id number] 10:16:00Surgical Pathology Report Case: [id number] Authorizing Provider: Luis Yang MD Collected: 03/16/2020 10:21 AM Ordering Location: [facility] Received: 03/16/2020 11:20 AM SERVICES Pathologist: Luis Dubois MD Specimen: Tumor, Liver Tumor, Segment 2 A. 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 Signing Pathologist Direct Phone Line: [phone] signed by Luis Dubois MD on 03/18/2020 at 10:16 [id number] mass A. Liver tumor, segment 2A. The specimen is received fresh labelled with the patient's name, medical record number and "tumor" and consists of an 11.2 g, 3.6 x 3 x 2.1 cm irregular portion of liver. The capsule is maroon-purple andsmooth. The exposed parenchyma is completely cauterized. The margin is inked blue, and the specimen is serially sectioned to reveal an irregular, smart, fibrous area towards one end measuring 1.5 x 1 x 0.5 cm. This area is 0.5 cm from the margin. The remaining parenchyma is red-brown and smooth. The specimen is entirely submitted sequentially in A1-A9.WILLIAM Schultz PA (ASCP)PERFORMED. [facility], Department of Pathology, [address] [place] [address], [facility], [facility], [address] [place] [address], [facility], Department of [facility]ology, [address] [place] [address], [id number] 06:39:00 Test Item Value Reference Range Interpretation Comments PHOSPHORUS (BEAKER) (test code = 2.1 mg/dL 2.3-4.7 L 604) Pipe [employer]itter Apprentice ID - [id number] 06:39:00 Test Item Value Reference Range Interpretation Comments MAGNESIUM (BEAKER) (test code = 1.7 mg/dL 1.6-2.6 627) Pipe Fitter Apprentice ID - DBBASIC METABOLIC [id number] 06:39:00 Test Item Value Reference Range Interpretation Comments SODIUM (BEAKER) 134 meq/L 136-145 L (test code = 381) POTASSIUM (BEAKER) 3.6 meq/L 3.5-5.1 (test code = 379) CHLORIDE (BEAKER) 102 meq/L 98-107 (test code = 382) CO2 (BEAKER) (test 25 meq/L 22-29 code = 355) BLOOD UREA NITROGEN 5 mg/dL 7-21 L (BEAKER) (test code = 354) CREATININE (BEAKER) 0.68 mg/dL 0.57-1.25 (test code = 358) GLUCOSE RANDOM 106 mg/dL 70-105 H (BEAKER) (test code = 652) CALCIUM (BEAKER) 8.3 mg/dL 8.4-10.2 L (test code = 697) EGFR (BEAKER) (test 95 mL/min/1.73 ESTIMA VANDANA GFR IS code = 1092) sq m NOT ACCURATE CREATININE CLEARANCE IN PREDICTING GLOMERULAR FILTRATION RATE . ESTIMATED GFR I S NOT APPLICABLE FOR DIALYSIS PATIEN TS. Pipe Fitter Apprentice ID - DBHEPATIC FUNCTION [id number] 06:39:00 Test Item Value Reference Range Interpretation Comments TOTAL PROTEIN (BEAKER) (test code = 5.9 gm/dL 6.0-8.3 L 770) ALBUMIN (BEAKER) (test code = 1145) 3.6 g/dL 3.5-5.0 BILIRUBIN TOTAL (BEAKER) (test code 0.7 mg/dL 0.2-1.2 = 377) BILIRUBIN DIRECT (BEAKER) (test 0.3 mg/dL 0.1-0.5 code = 706) ALKALINE PHOSPHATASE (BEAKER) (test 43 U/L 40-150 code = 346) AST (SGOT) (BEAKER) (test code = 93 U/L 5-34 H 353) ALT (SGPT) (BEAKER) (test code = 155 U/L 6-55 H 347) Pipe Fitter Apprentice ID - DBCBC (HEMOGRAM ONLY)2020-03-18 05:51:00 Test Item Value Reference Range Interpretation Comments WHITE BLOOD CELL COUNT (BEAKER) 14.0 K/ L 3.5-10.5 H (test code = 775) RED BLOOD CELL COUNT (BEAKER) 4.15 M/ L 3.93-5.22 (test code = 761) HEMOGLOBIN (BEAKER) (test code = 12.1 GM/DL 11.2-15.7 410) HEMATOCRIT (BEAKER) (test code = 36.6 % 34.1-44.9 411) MEAN CORPUSCULAR VOLUME (BEAKER) 88.2 fL 79.4-94.8 (test code = 753) MEAN CORPUSCULAR HEMOGLOBIN 29.2 pg 25.6-32.2 (BEAKER) (test code = 751) MEAN CORPUSCULAR HEMOGLOBIN CONC 33.1 GM/DL 32.2-35.5 (BEAKER) (test code = 752) RED CELL DISTRIBUTION WIDTH 13.3 % 11.7-14.4 (BEAKER) (test code = 412) PLATELET COUNT (BEAKER) (test 142 K/CU MM 150-450 L code = 756) MEAN PLATELET VOLUME (BEAKER) 10.7 fL 9.4-12.3 (test code = 754) NUCLEATED RED BLOOD CELLS 0 /100 WBC 0-0 (BEAKER) (test code = 413) HEPATIC FUNCTION [id number] 06:52:00 Test Item Value Reference Range Interpretation Comments TOTAL PROTEIN (BEAKER) (test code = 6.8 gm/dL 6.0-8.3 770) ALBUMIN (BEAKER) (test code = 1145) 4.1 g/dL 3.5-5.0 BILIRUBIN TOTAL (BEAKER) (test code 0.8 mg/dL 0.2-1.2 = 377) BILIRUBIN DIRECT (BEAKER) (test 0.3 mg/dL 0.1-0.5 code = 706) ALKALINE PHOSPHATASE (BEAKER) (test 49 U/L 40-150 code = 346) AST (SGOT) (BEAKER) (test code = 139 U/L 5-34 H 353) ALT (SGPT) (BEAKER) (test code = 161 U/L 6-55 H 347) Pipe Fitter Apprentice ID - MARCELA MBASIC METABOLIC [id number] 06:52:00 Test Item Value Reference Range Interpretation Comments SODIUM (BEAKER) 137 meq/L 136-145 (test code = 381) POTASSIUM (BEAKER) 3.9 meq/L 3.5-5.1 (test code = 379) CHLORIDE (BEAKER) 107 meq/L 98-107 (test code = 382) CO2 (BEAKER) (test 24 meq/L 22-29 code = 355) BLOOD UREA NITROGEN 7 mg/dL 7-21 (BEAKER) (test code = 354) CREATININE (BEAKER) 0.71 mg/dL 0.57-1.25 (test code = 358) GLUCOSE RANDOM 115 mg/dL 70-105 H (BEAKER) (test code = 652) CALCIUM (BEAKER) 8.9 mg/dL 8.4-10.2 (test code = 697) EGFR (BEAKER) (test 91 mL/min/1.73 ESTIMA VANDANA GFR IS code = 1092) sq m NOT ACCURATE CREATININE CLEARANCE IN PREDICTING GLOMERULAR FILTRATION RATE . ESTIMATED GFR I S NOT APPLICABLE FOR DIALYSIS PATIEN TS. Pipe Fitter Apprentice ID - MARCELA MCBC (HEMOGRAM ONLY)2020-03-17 06:24:00 Test Item Value Reference Range Interpretation Comments WHITE BLOOD CELL COUNT (BEAKER) 19.9 K/ L 3.5-10.5 H (test code = 775) RED BLOOD CELL COUNT (BEAKER) 4.62 M/ L 3.93-5.22 (test code = 761) HEMOGLOBIN (BEAKER) (test code = 13.3 GM/DL 11.2-15.7 410) HEMATOCRIT (BEAKER) (test code = 41.4 % 34.1-44.9 411) MEAN CORPUSCULAR VOLUME (BEAKER) 89.6 fL 79.4-94.8 (test code = 753) MEAN CORPUSCULAR HEMOGLOBIN 28.8 pg 25.6-32.2 (BEAKER) (test code = 751) MEAN CORPUSCULAR HEMOGLOBIN CONC 32.1 GM/DL 32.2-35.5 L (BEAKER) (test code = 752) RED CELL DISTRIBUTION WIDTH 13.2 % 11.7-14.4 (BEAKER) (test code = 412) PLATELET COUNT (BEAKER) (test 197 K/CU MM 150-450 code = 756) MEAN PLATELET VOLUME (BEAKER) 11.3 fL 9.4-12.3 (test code = 754) NUCLEATED RED BLOOD CELLS 0 /100 WBC 0-0 (BEAKER) (test code = 413) Type and screen, [id number] 09:24:00 Test Item Value Reference Range Interpretation Comments ABO/RH AUTOMATED (BEAKER) (test A NEGATIVE code = 2260) Ab Scrn (test code = 890-4) NEGATIVE [facility] HospitalANESTHESIA SPINAL [id number] 09:18:52Emanuel Phillips MD - 03/16/2020 9:18 AM CDTSpinal BlockPatient location during procedure: ORStart time: 03/16/2020 9:06 AMEnd time: 03/16/2020 9:10 AM Procedure Indication: procedure for pain, at surgeon's request and post-op pain managementStaffingAnesthesiologist: Emanuel Phillips MDPerformed: personally Preanesthetic ChecklistCompleted: patient identified, pre-op evaluation, timeout performed, IV checked, risks and benefits discussed, monitors and equipment checked, anesthesia consent given, prepsite dry prior to draping and maximum sterile barriers were used: cap, mask, sterile gown, sterile gloves, and large sterile sheetPrepPrep: BetadineProcedures: sterile gloves, surgical mask, surgical hat, sterile technique and prep and sterile drape appliedSpinal BlockPatient position: sittingPatient monitoring: EKG, HR, BP and ZgN8Skpzcnmm: midlineLevel: L3-4Injection technique: single-shotlandmarktechnique and landmark techniqueNeedleNeedle type: Other (clark) Needle gauge: 25 GNeedle Length:9 cmUsed introducerAssessmentSensory level: G33Ouraqq: cerebrospinal fluidpatient tolerated the procedure well, patient had adequate level of anesthesia and negative Allis clamp test and patient had noimmediate complicationsAdditional NotesPatient tolerated well. No pain on injection or throughout procedure.[facility] HospitalABORH, [id number] 09:18:00 Test Item Value Reference Range Interpretation Comments ABO Grouping (test code = 2588) A Rh Factor (test code = 2589) NEG [facility] HospitalPOCT , [id number] 08:10:00 Test Item Value Reference Range Interpretation Comments Test Urine, POC (test Negative code = 4802856) Control line present?, POC (test Yes code = 8337171) Background clear?, POC (test code Yes = 6164738) UPT Cassette Lot #, POC (test code 02/17/2021 = [id number]) UPT Cassette Expiration Date, POC [id number] (test code = 5672173) [facility] HospitalCT, ABDOMEN, WITHOUT / WITH IV [id number] 11:33:00FINAL REPORT CT of the abdomen, with and without contrast Clinical History:liver tumor Technique: CT of the abdomen is performed before and after intravenous contrast administration. This exam was performed according to our departmental dose optimization program which includes automated exposure control, adjustment of the mA and/or kV according to patient's size and/or use of iterative reconstructive technique. Comparison Film: None Discussion: Visualized lower thorax is unremarkable. Liver is not cirrhotic in morphology. In the left lobe, there is a 4.3 cm hypodense lesion demonstrating peripheral nodular enhancement, and gradual centripetal filling, most compatible with a hemangioma. There is an additional 8 mm hypodensity in the posterior right lobe, and a 7 mm hypodensity in segment IVb, both demonstrate suspected enhancement, and are too small to definitively characterize. There is no biliary ductal dilatation. Status post cholecystectomy. The spleen, pancreas, and adrenal glands are normal. Kidneys demonstrate no mass, hydronephrosis or radiopaque stone. No evidence of bowel obstruction. No ascites, or lymphadenopathy. Osseous structures are intact. Impression: A 4.3 cm lesion in the lateral segment of the left lobe is most compatible with a hemangioma. There are two additional subcentimeter hypodensities that are too small to definitively characterize, although not likely to represent cysts. Consider MR follow-up if clinically appropriate. Status post cholecystectomy. No significant biliary ductal dilatation. Signed: Brennon Bentley Verified Date/Time: 03/10/2020 11:33:02 Reading Location: [facility] C013X [facility] Consult Reading Room Electronicallysigned by: BRENNON BENTLEY M.D. on 03/10/2020 11:33 AMCT abdomen without & with IV [id number] 11:33:00Interface, External Ris In - 03/10/2020 11:[address] of the abdomen, with and without contrast Clinical History: liver tumor Technique: CT of the abdomen is performed before and after intravenous contrast administration. This exam was performed according to ourdepartmental dose optimization program which includes automated exposure control, adjustment of the mA and/or kV according to patient's size and/or use of iterative reconstructive technique. ComparisonFilm: None Discussion: Visualized lower thorax is unremarkable. Liver is not cirrhotic in morphology. In the left lobe, there is a 4.3 cm hypodense lesion demonstrating peripheral nodular enhancement,and gradual centripetal filling, most compatible with a hemangioma. There is an additional 8 mm hypodensity in the posterior right lobe, and a 7 mm hypodensity in segment IVb, both demonstrate suspected enhancement, and are too small to definitively characterize. There is no biliary ductal dilatation.Status post cholecystectomy. The spleen, pancreas, and adrenal glands are normal. Kidneys demonstrate no mass, hydronephrosis or radiopaque stone. No evidence of bowel obstruction. No ascites, or lymphadenopathy. Osseous structures are intact. Impression: A 4.3 cm lesion in the lateral segment of the left lobe is most compatible with a hemangioma. There are two additional subcentimeter hypodensities that are too small to definitively characterize, although not likely to represent cysts. Consider MR follow-up if clinically appropriate. Status post cholecystectomy. No significant biliary ductal dilatation. Signed: Brennon Bentleyeport Verified Date/Time: 03/10/2020 11:33:02 Reading Location: [facility] C013X Ortho Consult Reading Room [facility] HospitalFine [facility]le Aspirate by [id number] 15:03:00 Test Item Value Reference Range Interpretation Comments Case Report (test code Medical Cytology = 104) Report Case: [id number] Authorizing Provider: Elliot Hogan MD Collected: 02/07/2020 1414 Ordering Location: [facility] Endoscopy Received: 02/07/2020 1521 Services Pathologist: Maricruz Garcia MD Specimen: Liver, Left liver mass FNA in CRR DIAGNOSIS (test code = [id number] 3220) FuZzEwMzNcZnRuYmpcdWMx ANhykpLmHLowg9IuR0UrQt AwMFxhbnNpXGRlZmxhbmcx AQUhQTU4qfOmXSOuHWosLX FvYVcsEt6gwQIwbKonTrJn WHJse6mygjDVkvujtZw1c1 hvOTPzMoB1fEAqBAdcJ1qp pnWnyAAzCXDtNSp8pQ86GJ EfbM3emLWoBQrceaVtYjP6 LRyzXOVnSkW9VPRxhPCbNN TkO1lkRUOoVEuwTYRpFXmy wDTsHTI7hBhkn7R4iIPapZ EgrVbvOhTbXfDgOQBIu2Hk OSl9cQzzJ0EpDJJjPqK7nF QgUGFyYWdyYXBoIEZvbnQ7 rI37GMwsnvK1yIGyp9Mkn3 5tq210qW5kvRFdKFH9JSOt XWKftWEmZROhZKZ9GUCvaD QcV0l6JbWsfHExW9I2PaPg iMTaA8T4SrNyoRZtO4D0Qz DeqBVoJYAkhAGcVe2lbZJe aYHehv5tst83SEO8p5IpxX zaEPF0SEE5FwFvOk4jrEQl XMVjAV0wKiIatSYpWRGgod 47rPucFXbjtyKgnC1sTkPw RJVumJOcINPxBD3rkQBhNT XchG4onlodMTXkScRnylym PNJceQgfkoWdUv5bqKshNB P9ODeyO6qtbC6eAmJ5XIrf T5wymG9uGLh0NVxqpDL7OX PpfV6mTF7rrruux1xlKgAa CX2dpuekj0guIfGwPG2sjt z1w8miDqXqHM9svvygu9ql NzIwXGhlYWRlcnkwXGZvb3 LuiqldCGAld3GfF0FqcBri G67ulTiaH41wLGJwqRfuqZ 0ndZeweR0qTdTmJyLcGRpb bFxwbGFpblxmMVxmczIwXG gxehbdLQMdOIidU2egWaCa KBNxeHkeRKqmk5InXHEdCY BcDfMfGKAYJIFKM7OFTFzR LnICXT7DY3WgJg9JPHUTYK NDED0MX6iNClPlQ4lOD7IX SW9PDHAJFRZMVTeQBDZMC2 NUUV0DZOQVMBpXOKNQTLxq qSCaAAAsQK8wLu3aAMLKGW hYUR2CBAEKWFmREOkLWD9H SUZJRURccGFyICAgICAgUF RPIP0OPJ0LXpNTPHHRJ8OO LCURYfKCTI9VUXDVN14aFZ XKJ7JLABwyYGI3c6jsySKa XHNzdGUxODAwMFxhbnNpXG VlCsrfmozaWIMvGEV6ejGm DDZyJPfnNZFeOCblCf8lxX JjeXfmQyKsBAIzr1zfdqXL mozftSe4a2nzWBJzYbW7tZ TlHSzwT0tzrcYdkCQuBVPf VVb4jH48AWTpdI4yqIWkHE ueiqFlDuL2NGmpUQZtQwX3 ZGWyaXEwBHWiC9ktVOGsWP tzBNXbOVwhuSFuMJM0vHsw p5F1nTXneQAmkYvsVuUzMj CxSxIYu7AqIKk7bZfyG2Yg AMUaIvS4sLFcUMMfLKlySP WvLQIgpnV4pC85GNkvonV5 gRGfx6Wkx47fd411gP3ykV QpSTT6TZKoUYYwnPIvHNQw FCG3GPQwdDFjK2fhQDEdUH 3touuhRHqwLGlbVQEvzTZ3 GHWqoVRiF1RkCPXxUUihEF Aopch5QsLiKy2hgGDppLxf SOjlk4xuz3cavIAnTtz8ZB FcVwQmThhfPOazo1Uto7ul QXXlce9wYYU8zMXpgQjqx4 R5yFKrMUCvwRBtVFIzKG1j nOGaKKSamN9vbmcsBDJkCt CijeflIKMsdXnnrcHxUt2o mSkgSYA8KWufR0kxuC7sQs R9DDcgW1ljaH7rEQk4YLwx NQWlwGF9qtH8BUBosDXwR1 ThiS7tVXIpEC2qdjr5m0pi DIU7CUdhKQWpPuO9snR8MO YvmDYdTGSmtIqiFPyop167 BWU1GxLpDAMxl9JpJ8HkaM rdL50yiDqwD81aLKAwaPqj eA8vdVoprN6zFbUwMfTjZO rugFgyNN0iDGDoW4pgqGOo ECLjPNEmF7yiUbUzaN0wfI slIPyxjvXxUIWyBul3KRLs sSJoWQPbBio8AIPtEYAwS7 5djyocRAC2eH4px0vtt3Gj HAcxOFU6YDOuw74bKHoxay Q4GSftEh1kGpCpWSF6PWbu cGFyfX0= COMMENT (test code = x2szoFAsFAYgaNGcSrQrCB 3359) RpFJDyj1kdZORrbNWeVvMp MzNcZnRuYmpcdWMxXGRlZm Shu2lou086cXFwe3ioMIId LpW6aWVdLPRmkSKiJ921q4 ypv8fgksVvwKG4WZRcTVS6 SAkvblZoboP8NWujcOPsCs I9BMlsyrPiMOcsjqQyfdOv Mpy3OJGzO372WXM4gGfhh7 dxJAT8YQDuPBYyCvAwSg2u oSFnG772ONKqZBPGZGRogZ c5HTTikwIujkErwQNGr905 Y214k2quDDKanbBbtEaWug ebp4lgD529XEUhvJYiyjJd CcRqIBWotLIqiVC7ZBXcVX 5fvkgtAfUsBC2dkejaFwJn LJ5zlbo5TdEkLF0rckrtGh KkGVoiQVXfetkkXKSsm2Fc juryTG3hM4Yht2I6xA4nzN CeNYSjhFUdDhVmYQNgon3e gYZpRDcus7PfVMB5djX7nI HxwNOeFQMmPY86Fehpm9Mt SaraANZ7OEPbulQnb8Ina9 fvZdWlmiRmG0dpB2AaKFMe CAThSTDvTgAghtKqi3Qyp2 TsuILzzSh7s1xqMFDdWVSo tTutu2ouSLQ1YNXeA2F4nA Hfk1erRDmwYKFscUS6tsjf JGreTJToleR4dmstZOkeUW JazRP0cjrbPDanZGXtDmK6 dazcJXflFIBoZHN5VJflp1 77YUR2GIzlNoptXPhgQHZl bmNvbnRccGduZGVjXHBsYW luXHBsYWluXGYwXGZzMjRc rRmzxSfklB3xReYlIcZzVA poHM0kQVIrC9hjyIHzBFMb GHWhK3maPeWzmL2sdJiuAH cquaVyKUHmbX0oX5EdIQFr feScrAJ9qF5kDQmfXPUmQ9 1vtUVnMPLrQxhvFZY6 CPT Code(s) (test code r5ttuMLiPDTtuFBuGmTiJT = 7798) SxAYHqw9nkRTBweVQbZrPl MzNcZnRuYmpcdWMxXGRlZm Pwg1jli852wIZbg5naXDHg IbS9nGXhVJFsqNAkR687e1 zkv4nablFvcWJ3NLTqASI0 YXlsmgXpdmP1QNrxoTAuPh D5KCwnuyAoKRuacySjmrNp Kjk1RDGvQ920LBG9gPeja9 mmPKF2ODSfJWHpRiMmYp8t pKDnO354FHZuQDQJTWQpsW w3NLMvkmNdndMbrNZXv669 X240b3qzZIBiwfUuoDhZzz ika6guM967ZDNavBQttpFr LnYoIUMxjNMcyCQ7NSZhCJ 9bjjcjJiSnIB4jxvakCnDz BE3wdtq4XdKhGB3ongxxPp GfPVljYSRrfzfuHXOkr2Gq qpfiIP3sD4Mmk5R4gY5ykG NgPOTrsHMeFkJxMTHucp4r vYVyDNjnp2QtPIQ7gxY2aL JmnSIqAVKrVV93Ccofi7Zr MimeYLL6GNNvrrXko9Avf2 yeRcHapaCfB2mdQ9JuBBZr ZVBnXTEnBcNgwzRpo7Cqb4 StyFKibZv8t5ugXBZzCFVy kJiry3qiENX4IMErU9N8vY Gxa7vtYJijAKIyrIK3rlzp QGczRJRnlkT4lnygGMnwFJ HdpUF7tqddKUunUSNfKtH1 ybjlFMgrQDFiQAF5KMisf8 13GNF9LWovFaioVLlgAUBa bmNvbnRccGduZGVjXHBsYW luXHBsYWluXGYwXGZzMjRc wBswmSolbR7nXsDtFbMjEV ukIG9rTIYkK4psmFTkJWGc EHRrV2lfLzTsfY8xrXfeHO ucdlEfFHn1LWblUNT7BQSi NVxwYXJ9 CLINICAL DATA (test d5wzyNEbETCtaFLfJzOpVC code = 3355) RuZPMui0ifYXXmaLZzHdQj MzNcZnRuYmpcdWMxXGRlZm Ahf7sfj672oQYkg4umMUKj KxD9aIKeSUGdlKMeW127v1 qdw3lobfBiiQK4AMKpNPM2 LBldxjBjldN8OHjesYCnOe C8OXtohsKpCLalyeXtoqCd Vzs9ZFSnO630TLA2yLrwh4 whRQX4QRAeRCRoZwDvOr6x cMReJ615SRFrXNJTCZHljK c2HBSyfpWzvqPadESDz728 V200e4nqYUVbxyHriQnPia wgi0oyT853QVLovWYhexVx RsDxXOLssHFhyAR6SFUfZV 7gcineNvMzQO0saqufZgFb UN7qlbn9HbIfGS1oyvtnEz SmDTiyJQMbcoztLPSjl0Zh owsmWA8eP8Xzd7Y7xR7zgS CuRIMtpTTiDyQrBKVyng0u sTOlUZncu6LkINL5buG2xD HtfWIoOBFmWS10Zbfem4Pz HjevTNO7GTWjchXvv7Vqv8 lyKmNzxjGcQ9riA3JyROFa MCBlILYkLyElsxPyw3Xbw8 EpjVHmdOb3l4hbRRDdACTv eDvzt5fjOFP2ZTUfD9E3mJ Zol7slBYuuCWDkqLG3kuhs RChbTDFnxzO1eabkGBzzRG JliVE5iymdEIlhYAGvExB0 dqofPOqwUGRdQGQ7GYyrg6 00HEV7EGikGbfcEDwqSNRd bmNvbnRccGduZGVjXHBsYW luXHBsYWluXGYwXGZzMjRc rUcnbAhehW7mHeFbQtFlWL ykZE0eCJUnF6bibFYjCWTd VYIwU8vvJuFnxW3nnUsgIN rxbgGsEQk7UrBqYVGzQaOq Z09cPLdppfPcxBxvkjBzPB WoXQivAKHyKDFyLUW8QLdv EaEic6QdxIdzQRqdxuHlVP Bhcn0= SPECIMEN SOURCE (test k1faqSNuMQBmgQMpCgCsRG code = 3377) KgEFRrw6kxQJAuoWPvXjJa MzNcZnRuYmpcdWMxXGRlZm Wfu1irc715mGPoh9faEQBg CvA3qXIiHJAobPTwS396c8 yxh3wwnsVkfTK9SKAtBBK4 JHlqnyRyyaN2LVinyICyUv B4PGrhxuMaMZxfolSaqaOs Kfe4RHIbA758XYB5tBoma9 gbXXR5XATgDJOhWbEhNy5o hTMnL141EFUhTDKQCEBchF o7JMMwjsRahbSzlDSKz592 W830g4vmHGGuypGueRjPgy bkh2gzL904WSCluQKlstYw VwNpDKPnbJKzeKO3YATiSC 5gxznkRuWvTT9xaxzeCkPg RO0ejdo1IaPhPK7hermsNp JvQJfbUDYwwrznOKWzn3Hc oznaSF9kX2Klc7N0yZ6wmE JcPDKifICqCwGxIWDhrv9m yPKjPZrek0UeLUP8daX9oB NxeOOfYADsFA41Shnlj5Pv KtihQLY0MWAoxrHjy3Tst2 ybEqGlyaIkH9pxT5EtZDSh ZTNuMMUsLjZzxbWme0Dxr5 HdzJBdyVm4c7sbKXXoGJXl bWbnh7rvVDR0KDCrR0A2pV Wph5avCXzyBIEmcRF2uyqy OYmeJOJfhvQ9mtmuKHaiTY VzoFA1zxelPKkiOASgPsD8 ghicZLdcGZMiERX6TPafg3 87JTH6JOhwNdstSHohJNVd bmNvbnRccGduZGVjXHBsYW luXHBsYWluXGYwXGZzMjRc vFzwbPnpoA2uLjAqMeSbUT nrFY1tIGFuU6pthZXfPKPc VPFnE2dlWvGcaC3wkZraYX yezlJyVEmKPpVuCS7CHMBW SVZFUiBNQVNTIEZOQVxwYX J9 GROSS DESCRIPTION (test n6ejuUZiNGZwxDXsOfAiZH code = 3366) SqOYUar7txDQAtyVAmFyBs MzNcZnRuYmpcdWMxXGRlZm Rbq8moi984vZYoi2gqSLUd HlP9vXZjYHOdpGFvN466XG LwHMaes3oxt5XdKYRcwNNm c2H9VORUpgxdbLl0cJejV5 2pf9V4LsafI4ijSSSxJONd Q0JdEC6rKDChPfi1KCM7HI X2KWPjOCCcT4MyQX9vEFAt yRNmHEf1i5jkkYkjUKMkIH X5h6iaPVdczfKlKN3ekv9z wFb0c7hdpfFbSOMlFXEfuQ PMVBOtQ1QirWwnJn3suSd2 jCuxYfpfEWZ5Gza5QW6pla 40fjh4bTidAIXymhhqNjI6 LXndVTPdxfwxBYe5LIlgLH JnbDcyMFxtYXJncjcyMFxt YXJndDcyMFxtYXJnYjcyMF jlLSRdCFQ6VYgpu030QAB0 IWjiy4xfu0dotPBxJfc2WH KbVnHjBubtSZhnp8Ohi7pj DKDltg0aHFQ1bFUfpDsed0 W7hBXnKZSxkKArraYyDFRw IsW0SCraQJ7knz75RKYsVD A0rt8syLUbfTiahsVecCVh BGvtS8HfCLFyv221MPBmR2 ZkJWWey3T2seWmTuQgCMOu xMC7ykW4TGHlULr8oUKhgs X3izKvzUCzF5unyW66BnHy gHWcT7HkiI98WiDofFRvL0 JxgH81OgIvkLLmW3YxoM42 ZrJmtBGlNSCmiSDkAh5wmU JekFLxo8IchHBpNQztZ28h z479FLJkpjFwW6kfkWZxho unnTMwtoudWHbnzzY9LWXd XHBsYWluXGYxXGZzMjJcbG FuZzEwMzNcaGljaFxmMVxk BmAoZEYsMOqhY3lsHtUwRp ItAlSeNDEvbNZmvC4fX4q8 w3VdB4kttxKjBmA2UYN1vN 9wyGyajwpiD3MoyFGhqQ5v h8fpLMKzV09sxEZzwPFpQi TdIaWqUxYxoCNfLVUzN7Xk dmVkOiAwMzIwMjBccGFyfQ == MICROSCOPIC DESCRIPTION m7nxgZKsOFMgnLNzUfEiPV (test code = 3371) HoXJExb3toLHAojYYyFgRl MzNcZnRuYmpcdWMxXGRlZm Mnj8sbc775hCFwf1dbLBMq VrC0kDYzTXUsiTWgS772WD FuFUylu2nyn2MtDAKvuXAh m6Q7NWHUobxihQc1oHhwC5 8gc3D1OkhoS1txUFDpCHOx E6PaNM5bBJJeFya8IZL0EE J9CEYyJJAaZ8MbUH9vVYRt eTLwXGh6n3ppcJzeRNBjKE L7h2gzZInlxeNrYE0tpb8y kSq0k9qutuCdFMBmASIikR SMXEErW8XliJgrGi2zvZt7 rVmlOalgPWU4Uzr8IU0miu 53gnb4eGvhEIHgslveQiA2 DOzgVYAmvuwoZPu2KVwlVJ JnbDcyMFxtYXJncjcyMFxt YXJndDcyMFxtYXJnYjcyMF efEOWkLGW7OSfhm443SGI7 WPfks0irc2upwCUcPqu1GW HcPaIxDyrkXIfgy8Cqc1fm LFNfht5nMXZ7yGAszQfhl5 N5uYFlRFMqfKUxplLqQWUl IzT2YEwoGT1bxv75NHWaRN Y7yv3kyGPggHojqoOcrGRo BQqjI8VlSSLml660TUGfK0 RoZSXeg5S9ofJnBsWgWOYs gII8ikC3HQGqQVt5gALepg U8fqKnmDVdN1dcjY49UqDq xWYhT5QqjR33SdJjjTKjF8 WhxR36KsBpvTDxR3FsjA72 PsXalKXxWJYboTQhBg4btG TwfEQab8GeaGTnRMzuZ46r x661WQLrrmSjR0hauGCokd tzaEBmmsroTXanzwE9EMAu XHBsYWluXGYxXGZzMjBcbG FuZzEwMzNcaGljaFxmMVxk XdLbSBBkZCbnA1seBqCqIl QrIAMBjNLuAZVuhyWylM9y ZCBhbmQgYWRtaXhlZCBhY3 C1CETvxbJjMO5nPCSog02m UBAlI7OeXYHelfwyfdWugV FuZHVsYXIgZXBpdGhlbGl1 eHZefkDahs7bQEqhgcQ2xE 0xiwSqYNBydOJcq2RuHTYl iGYwWMufpJ7ovYPnyAXad0 XlzHhyzOlpXAn8IMJjh18y Nk9DJRTjRDL7QsacKIF8 Gross assessment was [facility] performed at ([facility], = 2777) Department of Pathology, [address] [place] [id number], Technical component was [facility] performed at ([facility], = [phone]) Department of Pathology, [address] [place] [id number], Professional component [facility] was performed at ([facility], code = 2777) Department of Pathology, [address] [place] [phone], [facility] BY [id number] 15:03:00Medical Cytology Report Case: [id number] Authorizing Provider: Elliot Hogan MD Collected: 02/07/2020 1414 Ordering Location: [facility] Endoscopy Received: 02/07/2020 1521 Services Pathologist: Maricruz Garcia MD Specimen: Liver, Left liver mass FNA in CRR LEFT LOBE LIVER MASS FNA BY CLINICIAN (CYTOSPINS AND CELL BLOCK OF ASPIRATE): - NO MALIGNANT CELLS IDENTIFIED PREDOMINANTLY ACUTE INFLAMMATION PRESENT Signing Pathologist Direct Phone Line: [phone] signed by Maricruz Garcia MD on 02/10/2020 at 3:03 PMClinical correlation is recommended.[id number], 74231(4.0 X 2.3 cm) irregular mass in the left lobe of the liverLEFT LOBE LIVER MASS FNA30 mls incytorich red; 4 cytospins, cell blockCollected: [id number]: [id number] is blood and admixed acute inflammation. Focal benign glandular epithelium and non-keratinized squamous epithelium is present, likely from FNA tract.[facility], Department of Pathology, [address] [place] [id number], [facility], [facility] of [facility], [address] [place] [id number], [address] [place] [address], Department of Pathology, [address] [place] [address], [place] [address], FBFS NEEDLE ASPIRATE (FNA) [id number] 17:00:00 Test Item Value Reference Range Interpretation Comments Cytology (test code = See Separate Report 2629) [facility] [id number] 17:00:00 Test Item Value Reference Range Interpretation Comments CYTOLOGY RESULT POINTER See Separate Report (BEAKER) (test code = 2629) [place], [id number] 14:49:00Reason for exam:->abnormal imagingFINAL REPORT Technique: ERCP dated 02/07/2020 HISTORY: Abnormal imaging COMPARISON: ERCP dated 05/19/2015 IMPRESSION:Total fluoroscopy time is one minute. Total number of images istwo. Images show contrast within the biliary system. Please see operative report for details. Signed: Villa Barajas Verified Date/Time: 02/07/2020 14:49:28 Reading Location: [address] Radiology Reading Room [facility] Endoscopic Retrograde Cholangiopancreatography 2020-02-07 14:49:00Interface, External Ris In - 02/07/2020 2:51 PM CDTFINAL REPORT Technique: ERCP dated 02/07/2020 HISTORY: Abnormal imaging COMPARISON: ERCP dated 05/19/2015 IMPRESSION:Total fluoroscopy time is one minute. Total number of images is two. Images show contrast within the biliary system. Please see operative report for details. Signed: Villa Barajas Verified Date/Time: 02/07/2020 14:49:28 Reading Location: [address] Radiology Reading Room [facility]
[2021-01-17 15:48] LABS: Absolute Lymphocytes (CBC) 2.7 K/uL (0.7-4.9); Basophils % 0.7 % (0-1.3); Hematocrit 41.8 % (36.0-45.0); Lymphocytes % 41.3 % (15.3-44.8); MPV 9.5 fL (7.6-11.3); RBC Red Blood Cell Count 4.69 M/uL (3.86-4.86)
[2021-01-17] MEDS ORDERED: ONDANSETRON 4 MG/2 ML VIAL ONE (15:50)
[2021-01-17] MEDS ORDERED: MORPHINE 4 MG/ML SYR ONE (15:50)
[2021-01-17] MEDS ORDERED: NA CHLORIDE 0.9% 1,000 ML ONE (15:50)
[2021-01-17 16:15] LABS: ALT/SGPT 18 U/L (12-78); AST/SGOT 15 U/L (15-37); Albumin 3.9 g/dL (3.4-5.0); Alkaline Phosphatase 57 U/L (45-117); BUN Blood Urea Nitrogen 6 mg/dL (7-18); Bicarbonate 26 mmol/L (21-32); Bilirubin Direct < 0.1 mg/dL (0-0.2); Bilirubin Total 0.5 mg/dL (0.2-1.0); Glucose Level 88 mg/dL (74-106); Lipase 56 U/L (73-393); Protein, Total 7.1 g/dL (6.4-8.2); Sodium Level 140 mmol/L (136-145)
[2021-01-17 16:28] LABS: Urine Blood TRACE (NEG); Urine Glucose NEGATIVE (NEG); Urine Protein NEGATIVE (NEG); Urine Specific Gravity 1.015 (1.005-1.030)
--- NOTE | 2021-01-17 17:10 | RAD REPORT ---
EXAM DESCRIPTION: CT - Abdomen Pelvis W Contrast - 01/17/2021 4:48 pm CLINICAL HISTORY: Abdominal pain COMPARISON: 2012 and 2017 TECHNIQUE: Computed axial tomography of the abdomen pelvis was obtained. 100 cc Isovue-300 was admin istered intravenously. Oral contrast was not requested which limits evaluation of bowel. All CT scans are performed using dose optimization technique as appropriate and may include automated exposure control or mA/KV adjustment according to patient size. FINDINGS: 2.4 centimeter low-density lesion within the left lobe of liver has decreased in size. Radha gical clips are present within this region. Additional subcentimeter hepatic lesions unchanged are be nign. Cholecystectomy. The spleen, pancreas, adrenals and kidneys unremarkable. There is no evidence of diverticulitis. Normal appendix IMPRESSION: No acute abnormality is displayed.
--- NOTE | 2021-01-17 17:47 | ER ---
Nurse's Notes [facility] Name: Evelyn Chawla Age: 40 yrs Sex: Female : 1980 Arrival Date: 01/17/2021 Time: 13:32 Bed 24 Private MD: Diagnosis: Unspecified abdominal pain Presentation: 01/17 13:36 Chief complaint: Patient states: spasm's in "my liver area", and back pain. 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 Coronavirus screen: Client denies travel out of the [place] in the last 14 days. At this time, the client does not indicate any symptoms associated with coronavirus-19. Ebola Screen: No symptoms or risks identified at this time. Risk Assessment: Do you want to hurt yourself or someone else? Patient reports no desire to harm self or others. Onset of symptoms was December 2020. 13:36 Method Of Arrival: Ambulatory sv 13:36 Acuity: ISREAL 3 sv 13:37 Initial Sepsis Screen: Does the patient meet any 2 criteria? No. Patient's initial sv sepsis screen is negative. Does the patient have a suspected source of infection? No. Patient's initial sepsis screen is negative. Triage Assessment: 13:36 General: Appears in no apparent distress. uncomfortable, slender, Behavior is calm, sv cooperative, appropriate for age. Pain: Complains of pain in abdomen. Neuro: Level of Consciousness is awake, alert, obeys commands, Oriented to person, place, time, situation, Moves all extremities. Full function Gait is steady. Respiratory: Respiratory effort is even, unlabored. 13:36 GI: Reports upper abdominal pain, nausea. sv Historical: - Allergies: 13:37 No Known Allergies; sv - PMHx: 13:37 interstitial cystitis; Mieners disease; stage 2 billiary disease; trigeminal neuralgia; sv - PSHx: 13:37 Oophorectomy; Stent to biliary tract; Cholecystectomy; Hysterectomy; sv - Immunization history:: Adult Immunizations up to date. - Social history:: Smoking status: Patient denies any tobacco usage or history of. Screenin:17 Abuse screen: Denies threats or abuse. Nutritional screening: No deficits noted. vg1 Tuberculosis screening: No symptoms or risk factors identified. Fall Risk No fall in past 12 months (0 pts). No secondary diagnosis (0 pts). IV access (20 points). Ambulatory Aid- None/Bed Rest/Nurse Assist (0 pts). Gait- Normal/Bed Rest/Wheelchair (0 pts) Mental Status- Oriented to own ability (0 pts). Total Sandhu Fall Scale indicates No Risk (0-24 pts). Assessment: 15:14 General: Appears in no apparent distress. uncomfortable, Behavior is calm, cooperative. vg1 General: Appears. General: Appears. Pain: Complains of pain in right upper quadrant Pain currently is 8 out of 10 on a pain scale. Pain:. Neuro: Level of Consciousness is awake, alert, obeys commands, Oriented to person, place, time, situation. Cardiovascular: Patient's skin is warm and dry. Respiratory: Airway is patent Respiratory effort is even, unlabored. GI: Last BM was January 12, 2021. Bowel sounds present X 4 quads. Abd is soft X 4 quads Abd is non tender in right upper quadrant Reports bloating. : No signs and/or symptoms were reported regarding the genitourinary system. EENT: No signs and/or symptoms were reported regarding the EENT system. Derm: Skin is intact, is healthy with good turgor. Musculoskeletal: Circulation, motion, and sensation intact. 17:03 Reassessment: Patient appears in no apparent distress at this time. No changes from vg1 previously documented assessment. Patient and/or family updated on plan of care and expected duration. Pain level reassessed. Patient is alert, oriented x 3, equal unlabored respirations, skin warm/dry/pink. Stated pain has come back. Rates 8/10. Provider notified. Vital Signs: 13:37 BP 131 / 83; Pulse 65; Resp 18; Temp 98.5(TE); Pulse Ox 97% ; Weight 48.53 kg; Height 5 sv ft. 4 in. (162.56 cm); Pain 8/10; 15:17 BP 133 / 75; Pulse 88; Resp 16; Pulse Ox 100% ; vg1 16:00 BP 100 / 56; Pulse 63; Resp 16; Pulse Ox 100% on R/A; vg1 17:00 BP 113 / 65; Pulse 68; Resp 16; Pulse Ox 98% on R/A; vg1 13:37 Body Mass Index 18.36 (48.53 kg, 162.56 cm) sv ED Course: 13:32 Patient arrived in ED. mr 13:35 Arm band placed on. sv 13:37 Triage completed. sv 14:58 Oren Shah, LUI is PHCP. pm1 14:58 Shay Vail MD is Attending Physician. pm1 15:01 Nancy Gerber, RN is Primary Nurse. vg1 15:17 Patient has correct armband on for positive identification. Bed in low position. Call vg1 light in reach. Side rails up X 1. 15:30 Initial lab(s) drawn, by me, sent to lab. Inserted saline lock: 20 gauge in right kj1 antecubital area, using aseptic technique. Blood collected. 16:[address] via wheelchair. vg1 16:48 CT Abd/Pelvis - IV Contrast Only In Process Unspecified. EDMS 18:19 No provider procedures requiring assistance completed. IV discontinued, intact, vg1 bleeding controlled, No redness/swelling at site. Pressure dressing applied. Administered Medications: 15:42 Drug: Zofran (Ondansetron) 4 mg Route: IVP; Site: right antecubital; vg1 17:15 Follow up: Response: No adverse reaction vg1 15:42 Drug: NS 0.9% 1000 ml Route: IV; Rate: 1000 ml; Site: right antecubital; vg1 17:15 Follow up: IV Status: Completed infusion vg1 15:43 Drug: morphine 4 mg Route: IVP; Site: right antecubital; vg1 17:15 Follow up: Response: No adverse reaction; Pain is decreased vg1 17:51 Drug: GI Cocktail without - (Maalox Suspension 30 ml, Lidocaine Liquid 2 % 15 vg1 ml) Route: PO; 18:19 Follow up: Response: No adverse reaction; Pain is decreased vg1 17:51 Drug: Phenergan 12.5 mg Route: IVP; Site: right antecubital; vg1 18:19 Follow up: Response: No adverse reaction; Nausea is decreased vg1 Outcome: 17:46 Discharge ordered by . pm1 18:20 Discharged to home ambulatory. vg1 18:20 Condition: stable 18:20 Discharge instructions given to patient, Instructed on discharge instructions, follow up and referral plans. medication usage, Demonstrated understanding of instructions, follow-up care, medications, Prescriptions given X 2. 18:20 Patient left the ED. vg1 Signatures: Dispatcher [employer] Abigail Landeros, RN RN sv Reinoso, Jaja mr JennyOren acosta, FRAME TRIMMER FRAME TRIMMER pm1 Bernadette Katz kj1 Nancy Gerber, RN RN vg1 Corrections: (The following items were deleted from the chart) 13:39 13:37 Pulse 65bpm; Resp 18bpm; Pulse Ox 97%; Temp 98.5F Temporal; 48.53 kg; Height 5 sv ft. 4 in.; BMI: 18.3; Pain 8/10; sv
--- NOTE | 2021-01-17 17:47 | EDPHYS ---
Physician Documentation [facility] Name: Evelyn Chawla Age: 40 yrs Sex: Female : 1980 Arrival Date: 01/17/2021 Time: 13:32 Bed 24 Private MD: Shay Baker HPI: 01/17 15:39 This 40 yrs old Female presents to ER via Ambulatory with complaints of pm1 Abdominal Pain, Back Pain, Nausea. 15:39 The patient presents with abdominal pain in the right upper quadrant. pm1 15:39 Onset: The symptoms/episode began/occurred 1 week(s) ago. The symptoms do not radiate. pm1 Associated signs and symptoms: Pertinent positives: nausea, vomiting, and diarrhea, reports some blood in stool, Pertinent negatives: chest pain, shortness of breath. The symptoms are described as achy. Modifying factors: The symptoms are alleviated by nothing, the symptoms are aggravated by nothing. Severity of pain: in the emergency department the pain is actually worse. The patient has experienced similar episodes in the past, multiple times. The patient has been recently seen by a physician: a signals collector/analyst, about the same complaints last week and has a colonoscopy scheduled for tomorrow. Historical: - Allergies: 13:37 No Known Allergies; sv - PMHx: 13:37 interstitial cystitis; Mieners disease; stage 2 billiary disease; trigeminal neuralgia; sv - PSHx: 13:37 Oophorectomy; Stent to biliary tract; Cholecystectomy; Hysterectomy; sv - Immunization history:: Adult Immunizations up to date. - Social history:: Smoking status: Patient denies any tobacco usage or history of. ROS: 15:39 Constitutional: Negative for fever, chills, and weight loss, Cardiovascular: Negative pm1 for chest pain, palpitations, and edema, Respiratory: Negative for shortness of breath, cough, wheezing, and pleuritic chest pain. 15:39 : Negative for injury, bleeding, discharge, and swelling, MS/Extremity: Negative for injury and deformity, Skin: Negative for injury, rash, and discoloration, Neuro: Negative for headache, weakness, numbness, tingling, and seizure. 15:39 Abdomen/GI: Positive for abdominal pain, nausea, vomiting, and diarrhea. 15:39 Back: Positive for of the right mid back pain. Exam: 15:39 Constitutional: This is a well developed, well nourished patient who is awake, alert, pm1 and in no acute distress. Head/Face: Normocephalic, atraumatic. 15:39 Back: No spinal tenderness. No costovertebral tenderness. Full range of motion. Skin: Warm, dry with normal turgor. Normal color with no rashes, no lesions, and no evidence of cellulitis. MS/ Extremity: Pulses equal, no cyanosis. Neurovascular intact. Full, normal range of motion. 15:39 Cardiovascular: Exam negative for acute changes, Rate: normal, Rhythm: regular, Pulses: no pulse deficits are appreciated. 15:39 Respiratory: Exam negative for acute changes, respiratory distress, shortness of breath. 15:39 Abdomen/GI: Inspection: abdomen appears normal, Palpation: soft, in all quadrants, mild abdominal tenderness, in the epigastric area and right upper quadrant. 15:39 Neuro: Exam negative for acute changes, Orientation: is normal, Mentation: is normal, Motor: is normal, moves all fours. Vital Signs: 13:37 BP 131 / 83; Pulse 65; Resp 18; Temp 98.5(TE); Pulse Ox 97% ; Weight 48.53 kg; Height 5 sv ft. 4 in. (162.56 cm); Pain 8/10; 15:17 BP 133 / 75; Pulse 88; Resp 16; Pulse Ox 100% ; vg1 16:00 BP 100 / 56; Pulse 63; Resp 16; Pulse Ox 100% on R/A; vg1 17:00 BP 113 / 65; Pulse 68; Resp 16; Pulse Ox 98% on R/A; vg1 13:37 Body Mass Index 18.36 (48.53 kg, 162.56 cm) sv MDM: 15:05 Patient medically screened. pm1 17:19 Refusal of service: The patient/guardian displays adequate decision making capability pm1 and despite a detailed discussion of alternatives, benefits, risks, and consequences refuses: stool guaiac test. she wants to wait for tomorrow for that evaluation with her GI when they do the colonoscopy. she is requesting PO medication to soothe the throat. 17:45 Data reviewed: vital signs. Data interpreted: Pulse oximetry: on room air is 98 %. pm1 Interpretation: normal. Counseling: I had a detailed discussion with the patient and/or guardian regarding: the historical points, exam findings, and any diagnostic results supporting the discharge/admit diagnosis, lab results, radiology results, the need for outpatient follow up, a signals collector/analyst, to return to the emergency department if symptoms worsen or persist or if there are any questions or concerns that arise at home. 01/17 15:06 Order name: Basic Metabolic Panel; Complete Time: 16:20 pm1 01/17 15:06 Order name: CBC with Diff; Complete Time: 16:20 pm1 01/17 15:06 Order name: Hepatic Function; Complete Time: 16:20 pm1 01/17 15:06 Order name: Lipase; Complete Time: 16:20 pm1 01/17 15:39 Order name: Urine Dipstick--Ancillary (enter results); Complete Time: 16:45 eb 01/17 15:39 Order name: Urine --Ancillary (enter results); Complete Time: 16:45 eb 01/17 15:06 Order name: IV Saline Lock; Complete Time: 15:38 pm1 01/17 15:06 Order name: Labs collected and sent; Complete Time: 15:39 pm01/17 15:06 Order name: CT Abd/Pelvis - IV Contrast Only; Complete Time: 17:16 pm1 01/17 15:06 Order name: Urine Dipstick-Ancillary (obtain specimen); Complete Time: 15:31 pm1 Administered Medications: 15:42 Drug: Zofran (Ondansetron) 4 mg Route: IVP; Site: right antecubital; vg1 17:15 Follow up: Response: No adverse reaction vg1 15:42 Drug: NS 0.9% 1000 ml Route: IV; Rate: 1000 ml; Site: right antecubital; vg1 17:15 Follow up: IV Status: Completed infusion vg1 15:43 Drug: morphine 4 mg Route: IVP; Site: right antecubital; vg1 17:15 Follow up: Response: No adverse reaction; Pain is decreased vg1 17:51 Drug: GI Cocktail without - (Maalox Suspension 30 ml, Lidocaine Liquid 2 % 15 vg1 ml) Route: PO; 18:19 Follow up: Response: No adverse reaction; Pain is decreased vg1 17:51 Drug: Phenergan 12.5 mg Route: IVP; Site: right antecubital; vg1 18:19 Follow up: Response: No adverse reaction; Nausea is decreased vg1 Disposition: 01/18 06:21 Co-signature as Attending Physician, Shay Vail MD I agree with the assessment and [facility] plan of care. Disposition: 01/17/21 17:46 Discharged to Home. Impression: Unspecified abdominal pain. - Condition is Stable. - Discharge Instructions: Abdominal Pain, Adult. - Prescriptions for Bentyl 20 mg Oral Tablet - take 1 tablet by ORAL route every 6 hours As needed; 20 tablet. promethazine 25 mg Oral Tablet - take 1 tablet by ORAL route every 6 hours As needed; 20 tablet. - Medication Reconciliation Form, Thank You Letter, Antibiotic Education, Prescription Opioid Use form. - Follow up: Emergency Department; When: As needed; Reason: Worsening of condition. Follow up: Private Physician; When: 2 - 3 days; Reason: Recheck today's complaints, Continuance of care, Re-evaluation by your physician. - Problem is new. - Symptoms have improved. Signatures: Dispatcher [employer] Abigail Ferrara RN Shay Pearce MD MD cha Marinas, Patrick, TANDEM MILL ROLLER TANDEM MILL ROLLER pm1 Nancy Gerber RN RN vg1 Corrections: (The following items were deleted from the chart) 01/17 18:20 17:46 01/17/2021 17:46 Discharged to Home. Impression: Unspecified abdominal pain. vg1 Condition is Stable. Forms are Medication Reconciliation Form, Thank You Letter, Antibiotic Education, Prescription Opioid Use. Follow up: Emergency Department; When: As needed; Reason: Worsening of condition. Follow up: Private Physician; When: 2 - 3 days; Reason: Recheck today's complaints, Continuance of care, Re-evaluation by your physician. Problem is new. Symptoms have improved. pm1 21:50 15:39 The patient presents with abdominal pain pm1 pm1
[2021-01-17] MEDS ORDERED: MAGNES/ALUMIN/SIMET 30ML UCUP ONE (18:03)
[2021-01-17] MEDS ORDERED: LIDOCAINE VISCOUS 2% SOLN 15 ML UDC ONE (18:03)
[2021-01-17] MEDS ORDERED: PROMETHAZINE INJ 25 MG/ML AMP ONE (18:03)
[2021-01-17 19:22] VITALS: TEMP 98.5
[2021-01-17 19:26] VITALS: BP 113/65; O2SAT 98
== END 2021-01-17 18:20 | disposition home or self-care (01) ==
LOC: ER 13:28
DX: R10.11 Right upper quadrant pain (principal)
CPT/HCPCS: 96361; 85025; 80048; 36415; 81025; 80076; 81003; 83690; 74177; 96375; 96374; 99284; Q9967; J2550; J7030; J2405

== ENCOUNTER 2021-04-04 11:06 | Emergency (ER) | payer OTHER ==
--- OUTSIDE RECORDS SUMMARY | 2021-04-04 11:10 | XMS REPORT | Continuity of Care Document ---
:1980 Author Organization [facility] t Address [address] Wilk[place] [address] [place] [id number] Care Team Providers Name Role Phone Jannet Menjivar MD Primary Care Physician Doctor Unassigned, Name Attending Clinician Unavailable Violette Helton PHD Attending Clinician MAGNOLIA Attending Clinician Unavailable LOR Attending Clinician Unavailable MAGNOLIA Attending Clinician Unavailable LOR Admitting Clinician Unavailable MAGNOLIA Admitting Clinician Unavailable Payers Payer Name Policy Type Policy Effective Date Expiration Date Sour ce Number COMMERCIAL [id number] 2021 [place] MISCMISC 00:00:00 [employer] COMMERCIALxxxxx7 -Pre sentCommercial Problems Condition Condition Condition Status Onset Resolution Last Treating Co mments Source Name Details Category Date Date Treatment Clinician Date Hepatic Hepatic Disease Active 2020-[address] [facility]oplasm 4-27 [facility] ADHD ADHD Disease Active 2020-[address] [facility] 4[facility]27 [facility] Medical 00 [place] Arthritis Arthritis Disease Active 2020-[address] [facility] [address] 4-27 [facility]: Medical 00 [place] Asthma Asthma Disease Active 2020-[address] [facility] [address] 4-27 [facility] Medical 00 [place] Meniere Meniere Disease Active 2020-[address] [facility] disease disease 4-27 [facility] - 00:[facility]: Medical 00 [place] Chilkoot's Chilkoot's Disease Active 2020-[address] [facility] syndrome syndrome 03-16 [facility] 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 03-16 [facility] - 00:[facility] 00 Center Reflux Reflux Disease Active [facility] esophagiti esophagiti 03-16 Meryl kes - s s 00:00: Medical 00 Center Allergies, Adverse Reactions, Alerts Allergy Allergy Status Severity Reaction(s) Onset Inactive Treating Comm ents Source Name Type Date Date Clinician Ciproflo Drug Active Rash [facility] xacin Allergy 03-16 [facility] - (Mixture 00:00: Medical ) 00 Center Other Propensi Active Oral [facility] ty to 02-26 Steroids- [facility] - adverse 00:00: "flu-like Medica l reaction 00 achiness" Yenifer de los santos Social History Social Habit Start Date Stop Date Quantity Comments Source History of tobacco Current sm[facility] use [facility] Alcohol intake 2020-03-16 2020-03-[address] [facility] - 00:00:00 00:00:00 non-drinker of Medical Ce nter alcohol (finding) Cigarettes smoked 2020-03-16 2020-03-[address] [facility] - current (pack per 00:00:00 00:00:00 Medical Center day) - Reported Tobacco use and 2020-03-16 2020-03-[address] Meryl kes - exposure 00:00:00 00:00:00 [facility] Sex Assigned At [birth year] [facility] ethodist 00:00:00 00:00:00 Smoking Status Start Date Stop Date Source Former smoker 2020-03-16 00:00:00 2020-03-16 00:00:[address] [facility] [facility] Medications Ordered Filled Start Stop Current Ordering Indication Dosage Frequency Signature Comments Components Source Medication Medication Date Date Medication? Clinician (SIG) Name Name HYDROcodone Yes 1{tbl} Take [address] -acetaminop 4-30 tablet by Geno saldana (NORCO 13:18: mouth Medica l 10-325) 17 every 6 Center 10-325 mg (six) per tablet hours as needed for Pain. dextroamphe Yes 20mg QD Take 20 mg [facility] [...] Medica l 17 times Center daily. ALBUTEROL 2020-0 Yes Inhale by [facility] 4-30 mouth via [facility] - 13:18: inhaler. [facility] 17 Center Procedures Procedure Date / Time Performed Performing Clinician [facility] e COVID-19 QUALITATIVE PCR 2021-01-14 07:51:00 Elliot Hogan Plan of Care Planned Activity Planned Date Details Comments Source Future Scheduled 2021-06-20 INFLUENZA VACCINE [place] [facility] Test 00:00:00 [code = INFLUENZA VACCINE] Future Scheduled 2020-11-[address] [facility] - Test 00:00:00 (12+) [code = Medical Center DEPRESSION SCREENING (12+)] Future Scheduled 2020-07-21 INFLUENZA VACCINE (#1) [facility] Test 00:00:00 [code = INFLUENZA Medical Ce nter VACCINE (#1)] Future Scheduled 1999 [facility] 00:00:00 malignant neoplasm of cervix (procedure) [code = 632761651] Future Scheduled [address] - Test 00:00:00 malignant neoplasm of Medica l Center cervix (procedure) [code = 309453032] Future Scheduled 1997 HEPATITIS B VACCINE ([address] [facility] - Test 00:00:00 of 3 - Risk 3-dose Medical C enter series) [code = HEPATITIS B VACCINE (1 of 3 - Risk 3-dose series)] Future Scheduled 1996 Hepatitis C screening [place] [facility] Test 00:00:00 (procedure) [code = 765902184] Future Scheduled 1994 COVID-19 VACCINE (1) Siddhartharoger salazar [facility] Test 00:00:00 [code = COVID-19 VACCINE (1)] Future Scheduled [address] [facility] - Test 00:00:00 0-64 YRS (1 of 1 - Medical C enter PPSV23) [code = PNEUMOCOCCAL VACCINE 0-64 YRS (1 of 1 - PPSV23)] Encounters Start End Encounter Admission Attending Care Care Encounter Source Date/Time Date/Time Type Type Clinicians Facility Department ID 2021-03-31 2021-03-31 Orders Doctor CHARLOTTE [id number] 00:00:00 00:00:00 Only Unassigned, BIRD [id number] [place] [facility] [id number] 2021-03-01 2021-03-01 [facility] [id number] 08:15:22 12:15:22 Visit o, [facility] [id number] Violette [place] [id number] [place] [id number] [place] [id number] Office Building 2021-01-14 2021-01-14 Outpatient MAGNOLIA [facility] [id number] [place] 00:00:00 00:00:00 [place] [address] Results Test Description Test Time Test Comments Results Result Comments Source PHOSPHORUS 2020-03-19 06:32:00 Test Item Value Reference Range Interpretation Comme nts PHOSPHORUS (BEAKER) (test code = 604) 1.8 mg/dL 2.3-4.7 L [employer]itness ID - [id number] 06:32:00 Test Item Value Reference Range Interpretation Comments MAGNESIUM (BEAKER) (test code = 1.9 mg/dL 1.6-2.6 627) [employer]itness ID - LABASIC METABOLIC [id number] 06:32:00 Test Item Value Reference Range Interpretation [...] S NOT APPLICABLE FOR DIALYSIS PATIEN TS. Manager Fitness ID - LAHEPATIC FUNCTION [id number] 06:32:00 Test Item Value Reference Range Interpretation [...] code = 126 U/L 6-55 H 347) Manager Fitness ID - LACBC (HEMOGRAM ONLY)2020-03-19 05:59:00 Test Item Value Reference [...] WBC 0-0 (BEAKER) (test code = 413) TISSUE [id number] 10:16:00Surgical Pathology Report Case: [id number] Authorizing Provider: Luis Yang MD Collected: 03/16/2020 10:21 AM Ordering Location: [facility] PERI[facility] Received: 03/16/2020 11:20 AM SERVICES Pathologist: Luis Dubois MD Specimen: Tumor, Liver Tumor, Segment 2 A. 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 Signing Pathologist Direct Phone Line: [phone] signed by Luis Dubois MD on 03/18/2020 at 10:16 [id number] mass A. Liver tumor, segment 2A. The [...] specimen is entirely submitted sequentially in A1-A9.WILLIAM Schultz, GRECIA (ASCP)PERFORMED. [facility], Department of Pathology, [address] [place] [address], [facility], [facility] of [facility], [address] [place] [address], [facility], Department of [facility]ology, [address] [place] [address], [id number] 2020-03-18 06:39:00 Test Item Value Reference Range Interpretation Comments PHOSPHORUS (BEAKER) (test code = 2.1 mg/dL 2.3-4.7 L 604) Manager Fitness ID - [id number] 06:39:00 Test Item Value Reference Range Interpretation Comments MAGNESIUM (BEAKER) (test code = 1.7 mg/dL 1.6-2.6 627) Manager Fitness ID - DBBASIC METABOLIC [id number] 06:39:00 Test Item Value Reference Range Interpretation Comments SODIUM (BEAKER) 134 meq/L 136-145 L (test code = 381) POTASSIUM (BEAKER) 3.6 meq/L 3.5-5.1 (test code = 379) CHLORIDE (BEAKER) 102 meq/L 98-107 (test code = 382) CO2 (BEAKER) (test 25 meq/L - code = 355) BLOOD UREA NITROGEN 5 [...] S NOT APPLICABLE FOR DIALYSIS PATIEN TS. Manager Fitness ID - DBHEPATIC FUNCTION [id number] 06:39:00 Test Item Value Reference Range Interpretation [...] code = 155 U/L 6-55 H 347) Manager Fitness ID - DBCBC (HEMOGRAM ONLY)2020-03-18 05:51:00 Test [...] (BEAKER) (test code = 413) HEPATIC FUNCTION [id number] 06:52:00 Test Item Value Reference Range Interpretation [...] code = 161 U/L 6-55 H 347) Manager Fitness ID - MARCELA MBASIC METABOLIC [id number] 06:52:00 Test Item Value Reference Range Interpretation [...] S NOT APPLICABLE FOR DIALYSIS PATIEN TS. Manager Fitness ID - MARCELA MCBC (HEMOGRAM ONLY)2020-03-17 06:24:00 [...] WBC 0-0 (BEAKER) (test code = 413) CT, ABDOMEN, WITHOUT / WITH IV [id number] 11:33:00FINAL REPORT CT of the abdomen, with and without contrast Clinical History: liver tumor Technique: CT of the abdomen is performed before and after intravenous contrast administration. This exam was performed according to our departmental dose optimization program which includes automated exposure control, adjustment of the mA and/or kV according to patient's size and/or use o f iterative reconstructive technique. Comparison Film: None Discussion: [...] significant biliary ductal dilatation. Signed: Brennon Bentley MDReport Verified Date/Time: 03/10/2020 11:33:02 Reading Location: [facility] [id number] Ortho Consult Reading Room FINE NEEDLE ASPIRATION BY [id number] 15:03:00Medical Cytology Report Case: [id number] Authorizing Provider: Elliot Hogan MD Collected: 02/07/2020 1414 Ordering Location: [facility] Endoscopy Received: 02/07/2020 1521 Services Pathologist: Maricruz Garcia MD Specimen: Liver, Left liver mass FNA in CRR LEFT LOBE LIVER MASS FNA BY CLINICIAN (CYTOSPINS AND CELL BLOCK OF ASPIRATE): - NO MALIGNANT CELLS IDENTIFIED PREDOMINANTLY ACUTE INFLAMMATION PRESENT Signing Pathologist Direct Phone Line: [phone] signed by Maricruz Garcia MD on 02/10/2020 at 3:03 PMClinical correlation is recommended.[id number], 06156(4.0 X 2.3 cm) irregular mass in the left lobe of the liverLEFT LOBE LIVER MASS FNA30 mls incytorich red; 4 cytospins, cell blockCollected: [id number]: [id number] is blood and admixed acute inflammation. Focal benign glandular epithelium and non- keratinized squamous epithelium is present, likely from FNA tract.[facility], Department of Pathology, [address] [place] [address] [place] [address], [facility], Department of Pathology, [address] [place] [address], [facility], Department of Pathology, [address] [place] [address], AYLO NEEDLE ASPIRATE (FNA) [id number] 17:00:00 Test Item Value Reference Range Interpretation Comments CYTOLOGY RESULT POINTER See Separate Report (BEAKER) (test code = 2629) [place], [id number] 14:49:00Reason for exam:->abnormal imagingFINAL REPORT Technique: ERCP dated 02/07/2020 HISTORY: Abnormal imaging COMPARISON: ERCP dated 05/19/2015 IMPRESSION:Total fluoroscopy time is one minute. Total number of images istwo. Images show contrast within the biliary system. Please see operative report for details. Signed: Villa Barajas MDReport Verified Date/Time: 02/07/2020 14:49:28 Reading Location: [address] Radiology Reading Room
[2021-04-04] MEDS ORDERED: MORPHINE 4 MG/ML SYR ONE (13:27)
[2021-04-04] MEDS ORDERED: ONDANSETRON 4 MG/2 ML VIAL ONE ×2 (13:27→16:06)
[2021-04-04 13:30] LABS: Absolute Lymphocytes (CBC) 1.9 K/uL (0.7-4.9); Basophils % 0.6 % (0-1.3); Hematocrit 43.5 % (36.0-45.0); Lymphocytes % 20.3 % (15.3-44.8); MPV 9.5 fL (7.6-11.3); RBC Red Blood Cell Count 4.81 M/uL (3.86-4.86)
[2021-04-04 13:37] LABS: ALT/SGPT 18 U/L (12-78); AST/SGOT 12 U/L (15-37); Albumin 3.9 g/dL (3.4-5.0); Alkaline Phosphatase 60 U/L (45-117); BUN Blood Urea Nitrogen 6 mg/dL (7-18); Bicarbonate 27 mmol/L (21-32); Bilirubin Direct 0.1 mg/dL (0-0.2); Bilirubin Total 0.3 mg/dL (0.2-1.0); Glucose Level 88 mg/dL (74-106); Lipase 56 U/L (73-393); Potassium 4.1 mmol/L (3.5-5.1); Sodium Level 138 mmol/L (136-145)
--- NOTE | 2021-04-04 13:40 | RAD REPORT ---
EXAM DESCRIPTION: CT - Abdomen Pelvis W Contrast - 04/04/2021 1:30 pm CLINICAL HISTORY: pelvic pain, rectal pain, recent hemorrhoid banding COMPARISON: Abdomen Pelvis W Contrast dated 01/17/2021 TECHNIQUE: Biphasic, helical CT imaging of the abdomen and pelvis was performed following 100 ml non -ionic IV contrast. No oral contrast administered. All CT scans are performed using dose optimization technique as appropriate and may include automated exposure control or mA/KV adjustment according to patient size. FINDINGS: No suspicious findings in the lung bases. The liver, spleen, and pancreas show no suspicious findings. Small cystic areas in liver are not seferino rly different comparison. Gallbladder is absent. No abnormal biliary tree dilatation. Pneumobilia is present similar to prior imaging. Symmetric renal function is seen with no hydronephrosis or suspicious renal mass. No pyelonephritis o r acute parenchymal process. No bladder abnormalities. No adrenal abnormalities. Uterus is absent. Ov austin cysts are present 1.6 cm on the right and 1.1 cm on the left. No solid ovarian mass lesions see n. No gastric dilatation or gastric wall thickening. No dilated small bowel loops. Moderate stool volume is seen in the cecum and ascending colon. Large stool volume dilates the rectum to 6 cm. No rectal w all thickening or edema. No gross abnormality in the perianal or perineum region. No abscess, abnormal air collection or other suspicious finding. No free air, free fluid or inflammatory stranding. No hernia, mass or bulky ly mphadenopathy. No suspicious bony findings. IMPRESSION: Large stool volume dilates the rectum to 6 cm. No rectal wall thickening or mass. No CT abnormality in the perianal or perineum region. CT imaging does have some limitation.
[2021-04-04] MEDS ORDERED: MAGNESIUM CITRATE 300 ML BOT ONE (14:32)
[2021-04-04] MEDS ORDERED: FLEET ENEMA ADULT PR ONE (16:06)
[2021-04-04] MEDS ORDERED: MINERAL OIL ENEMA 135 ML BTL PR ONE ×2 (17:33→19:01)
[2021-04-04] MEDS ORDERED: LORazepam 2 MG/ML VIAL ONE (18:08)
[2021-04-04] MEDS ORDERED: ACETAMINOPHEN 500 MG TAB ONE (18:09)
[2021-04-04] MEDS ORDERED: MAGNESIUM HYDROXIDE 8% 30 ML ONE (19:13)
--- NOTE | 2021-04-04 19:44 | EDPHYS ---
Physician Documentation [facility] Name: Evelyn Chawla Age: 40 yrs Sex: Female : 1980 Arrival Date: 04/04/2021 Time: 11:08 Bed 26 Private MD: ED Physician Maren Garsia HPI: 04/04 12:31 This 40 yrs old Female presents to ER via Ambulatory with complaints of jmm Hemorrhoids - pain, banding on 04/02, Pelvic Pain, Nausea. 12:31 The patient presents to the emergency department with pain in the rectal area. jmm Modifying factors: The symptoms are alleviated by nothing. This is a 40 year old female s/p internal hemorrhoid banding that presents to the ED with complaints of rectal pain beginning this past Monday. Patient had a banding performed this past Monday and complains of increased pain today. . 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 Flu vaccine is not up to date. - Social history:: Smoking status: Patient denies any tobacco usage or history of. ROS: 12:31 Constitutional: Negative for fever, chills, and weight loss, Cardiovascular: Negative jmm for chest pain, palpitations, and edema, Respiratory: Negative for shortness of breath, cough, wheezing, and pleuritic chest pain. 12:31 Abdomen/GI: Positive for abdominal pain. 12:31 : Positive for pelvic pain. 12:31 All other systems are negative. Exam: 12:31 Constitutional: This is a well developed, well nourished patient who is awake, alert, jmm and in no acute distress. Head/Face: atraumatic. Eyes: EOMI, no conjunctival erythema appreciated ENT: Moist Mucus Membranes Neck: Trachea midline, Supple Chest/axilla: Normal chest wall appearance and motion. Cardiovascular: Regular rate and rhythm. No edema appreciated Respiratory: Normal respirations, no respiratory distress appreciated Abdomen/GI: Non distended, soft Back: Normal ROM Skin: General appearance color normal MS/ Extremity: Moves all extremities, no obvious deformities appreciated, no edema noted to the lower extremities Neuro: Awake and alert, normal gait Psych: Behavior is normal, Mood is normal, Patient is cooperative and pleasant Vital Signs: 11:38 BP 122 / 84; Pulse 117; Resp 19 S; Temp 97.7(TE); Pulse Ox 98% on R/A; Weight 47.17 kg ca1 (R); Height 5 ft. 4 in. (162.56 cm) (R); Pain 10/10; 14:00 BP 98 / 68; Pulse 88; Resp 16; Pulse Ox 98% on R/A; zb 15:00 BP 100 / 71; Pulse 86; Resp 16; Pulse Ox 99% on R/A; zb 16:00 BP 95 / 78; Pulse 84; Resp 16; Pulse Ox 100% on R/A; zb 16:45 BP 100 / 72; Pulse 75; Resp 16; Pulse Ox 100% on R/A; zb 18:04 BP 103 / 71; Pulse 83; Resp 16; Pulse Ox 97% on R/A; zb 19:23 BP 103 / 81; Pulse 77; Resp 16; Pulse Ox 96% on R/A; zb 11:38 Body Mass Index 17.85 (47.17 kg, 162.56 cm) ca1 MDM: 12:31 Patient medically screened. konstantin 19:42 Data reviewed: vital signs, nurses notes. Counseling: I had a detailed discussion with konstantin the patient and/or guardian regarding: the historical points, exam findings, and any diagnostic results supporting the discharge/admit diagnosis, radiology results, the need for outpatient follow up, to return to the emergency department if symptoms worsen or persist or if there are any questions or concerns that arise at home. ED course: Pain is decreased in the ED. No BM in the ED. Patient will follow up with GI tomorrow for reevaluation. patient understood and agrees with the plan of care. . 04/04 12:36 Order name: Basic Metabolic Panel; Complete Time: 13:59 [facility] 04/04 12:36 Order name: CBC with Diff; Complete Time: 13:59 [facility] 04/04 12:36 Order name: Hepatic Function; Complete Time: 13:59 [facility] 04/04 12:36 Order name: Lipase; Complete Time: 13:59 [facility] 04/04 12:36 Order name: CT Abd/Pelvis - IV Contrast Only; Complete Time: 13:59 [facility] 04/04 12:36 Order name: IV Saline Lock; Complete Time: 13:02 [facility] 04/04 12:36 Order name: Labs collected and sent; Complete Time: 13:02 [facility] 04/04 17:41 Order name: Misc. Order: apple juice, prune juice, butter; Complete Time: 18:15 jmm Administered Medications: 13:13 Drug: morphine 4 mg {Note: RASS 0.} Route: IVP; Site: right antecubital; zb 13:50 Follow up: Response: No adverse reaction; Pain is decreased; RASS: Alert and Calm (0) zb 13:14 Drug: Zofran (Ondansetron) 4 mg Route: IVP; Site: right antecubital; zb 14:00 Follow up: Response: No adverse reaction; Nausea is decreased zb 14:16 Drug: Magnesium Citrate Liquid 300 ml Route: PO; zb 15:00 Follow up: Response: No adverse reaction zb 15:49 Drug: Zofran (Ondansetron) 4 mg Route: IVP; Site: right antecubital; zb 16:00 Follow up: Response: No adverse reaction; Nausea is decreased zb 16:18 Not Given (Physician Discretion): Fleet Enema (sodium phosphate) 133 ml TX once zb 17:21 Drug: Mineral Oil 133 ml Route: TX; zb 17:50 Follow up: Response: No adverse reaction; No change in condition zb 17:52 Drug: Tylenol 1000 mg Route: PO; zb 18:51 Follow up: Response: No adverse reaction zb 18:01 Drug: Ativan (LORazepam) 1 mg Route: IVP; Site: right antecubital; zb 18:51 Follow up: Response: No adverse reaction; Pain is decreased; RASS: Alert and Calm (0) zb 18:51 Not Given (Patient Refused): Mineral Oil 133 ml TX once zb 18:56 Drug: Milk of Magnesia (magnesium hydroxide) Suspension 400 mg/5 mL 30 ml Route: PO; zb 19:40 Follow up: Response: No adverse reaction zb 19:50 Drug: Dulcolax (bisacodyl) Suppository 10 mg Route: TX; zb 19:51 Follow up: Response: Medication administered at discharge. alejandro Disposition: 04/05 18:32 Co-signature as Attending Physician, Maren Garsia MD. ma2 Disposition: 04/04/21 19:44 Discharged to Home. Impression: Constipation, unspecified. - Condition is Stable. - Discharge Instructions: Constipation, Adult. - Prescriptions for Miralax 17 gram/dose Oral - take 1 packet by ORAL route once daily dilute powder in 8 ounces of water or juice; 30 packet. - Medication Reconciliation Form, Thank You Letter, Antibiotic Education, Prescription Opioid Use form. - Follow up: Silver Gutierrez MD; When: Tomorrow; Reason: Recheck today's complaints, Continuance of care, Re-evaluation by your physician. Signatures: Dispatcher [employer] EDMS Kyle Mack PA PA jmm Alzahri, Mohammad, MD MD [facility] Hugh Bobby [facility] Marylin Tobin RN RN ca1 Brown, Zipporah, RN RN zb Corrections: (The following items were deleted from the chart) 04/04 19:52 19:44 04/04/2021 19:44 Discharged to Home. Impression: Constipation, unspecified. mw2 Condition is Stable. Forms are Medication Reconciliation Form, Thank You Letter, Antibiotic Education, Prescription Opioid Use. Follow up: Silver Gutierrez; When: Tomorrow; Reason: Recheck today's complaints, Continuance of care, Re-evaluation by your physician. konstantin
--- NOTE | 2021-04-04 19:44 | ER ---
Nurse's Notes [facility] Name: Evelyn Chawla Age: 40 yrs Sex: Female : 1980 Arrival Date: 04/04/2021 Time: 11:08 Bed 26 Private MD: Diagnosis: Constipation, unspecified Presentation: 04/04 11:38 Chief complaint: Patient states: Hemorrhoid banding done Monday. This is my 3rd time, ca1 the first 2 were not this painful. I can't sleep with the pain, it hurts to urinate, the pressure is just painful, I hurt on my back and radiates down to both legs. I have spasms on my rectal muscle and my vagina. This morning, I almost pass out when I tried to go to the restroom, and I am very nauseated and vomited this morning. Coronavirus screen: Client denies travel out of the [place] in the last 14 days. At this time, the client does not indicate any symptoms associated with coronavirus-19. Ebola Screen: Patient negative for fever greater than or equal to 101.5 degrees Fahrenheit, and additional compatible Ebola Virus Disease symptoms Patient denies exposure to infectious person. Patient denies travel to an Ebola-affected area in the 21 days before illness onset. No symptoms or risks identified at this time. Initial Sepsis Screen: Does the patient meet any 2 criteria? No. Patient's initial sepsis screen is negative. Does the patient have a suspected source of infection? No. Patient's initial sepsis screen is negative. Risk Assessment: Do you want to hurt yourself or someone else? Patient reports no desire to harm self or others. Onset of symptoms was April 04, 2021. 11:38 Method Of Arrival: Ambulatory ca1 11:38 Acuity: ISREAL 3 ca1 Triage Assessment: 19:50 General: Behavior is calm. zb INTERIOR SPECIALIST: 11:44 LMP N/A - Hysterectomy ca1 Historical: - Allergies: 11:44 Ciprofloxacin; ca1 - PMHx: 11:44 interstitial cystitis; Mieners disease; stage 2 billiary disease; trigeminal neuralgia; ca1 - PSHx: 11:44 Oophorectomy; Stent to biliary tract; Hysterectomy; Cholecystectomy; hemorrhoid bands; ca1 Liver tumor removal; wrist surgery; rotator cuff surgery; - Immunization history:: Client reports having NOT received the Covid vaccine. Flu vaccine is not up to date. - Social history:: Smoking status: Patient denies any tobacco usage or history of. Screenin:06 Abuse screen: Denies threats or abuse. Denies injuries from another. Nutritional zb screening: No deficits noted. Tuberculosis screening: No symptoms or risk factors identified. Fall Risk None identified. Assessment: 13:00 General: Appears in no apparent distress. uncomfortable, Reports feeling ill for 1-2 zb days. Pain: Complains of pain in low back area and pelvis Pain currently is 9 out of 10 on a pain scale. Quality of pain is described as aching, pressure, sharp, throbbing. Neuro: Level of Consciousness is awake, alert, obeys commands, Oriented to person, place, time, situation. Cardiovascular: Patient's skin is warm and dry. Respiratory: Airway is patent Respiratory effort is even, unlabored, Respiratory pattern is regular, symmetrical. GI: Abdomen is round Reports constipation, bloody stool, hemorrhoids, nausea. : Reports pain in suprapubic area. Derm: Skin is intact, is healthy with good turgor, Skin is dry, Skin is normal, Skin temperature is warm. Musculoskeletal: Circulation, motion, and sensation intact. Range of motion: intact in all extremities. 14:03 Reassessment: Patient appears in no apparent distress at this time. Patient and/or zb family updated on plan of care and expected duration. Pain level reassessed. patient waiting results. 15:30 Reassessment: notified ECP patient states that she is nauseous. Medication ordered. zb 15:50 Reassessment: patient stated that due to her surgery nothing can go in her rectum area. zb notified ECP, will follow up with GI, medication held until finalized. 16:00 Reassessment: Patient appears in no apparent distress at this time. Patient and/or zb family updated on plan of care and expected duration. Pain level reassessed. patient ambulated to restroom. 16:19 Reassessment: changed fleet enema to mineral enema per ECP. zb 17:22 Reassessment: Patient appears in no apparent distress at this time. Patient and/or zb family updated on plan of care and expected duration. Pain level reassessed. Patient is alert, oriented x 3, equal unlabored respirations, skin warm/dry/pink. patient currently using the restroom. enema has been given. tolerated well. 17:40 Reassessment: patient crying and tearful. notified ECP. no BM at this time. medications zb ordered. will continue to monitor. 18:50 Reassessment: Patient appears in no apparent distress at this time. Patient and/or zb family updated on plan of care and expected duration. Pain level reassessed. Patient is alert, oriented x 3, equal unlabored respirations, skin warm/dry/pink. no bm at this time. patient resting in bed. 19:00 Reassessment: Patient refused enema notified ECP. additional medication ordered. zb 19:37 Reassessment: Patient appears in no apparent distress at this time. Patient and/or zb family updated on plan of care and expected duration. Pain level reassessed. Patient is alert, oriented x 3, equal unlabored respirations, skin warm/dry/pink. notified ECP that patient has been able to have a BM. ECP at bedside discussing care with patient. Medications ordered. Vital Signs: 11:38 BP 122 / 84; Pulse 117; Resp 19 S; Temp 97.7(TE); Pulse Ox 98% on R/A; Weight 47.17 kg ca1 (R); Height 5 ft. 4 in. (162.56 cm) (R); Pain 10/10; 14:00 BP 98 / 68; Pulse 88; Resp 16; Pulse Ox 98% on R/A; zb 15:00 BP 100 / 71; Pulse 86; Resp 16; Pulse Ox 99% on R/A; zb 16:00 BP 95 / 78; Pulse 84; Resp 16; Pulse Ox 100% on R/A; zb 16:45 BP 100 / 72; Pulse 75; Resp 16; Pulse Ox 100% on R/A; zb 18:04 BP 103 / 71; Pulse 83; Resp 16; Pulse Ox 97% on R/A; zb 19:23 BP 103 / 81; Pulse 77; Resp 16; Pulse Ox 96% on R/A; zb 11:38 Body Mass Index 17.85 (47.17 kg, 162.56 cm) ca1 ED Course: 11:08 Patient arrived in ED. as 11:42 Triage completed. ca1 11:44 Arm band placed on right wrist. ca1 12:04 Kyle Mack PA is PHCP. jmm 12:04 Maren Garsia MD is Attending Physician. m 12:04 Jo Adams RN is Primary Nurse. zb 12:06 Patient has correct armband on for positive identification. Allergy band placed. Bed in zb low position. Call light in reach. Side rails up X 1. Pulse ox on. NIBP on. Door closed. Noise minimized. 13:00 Inserted saline lock: 20 gauge in right antecubital area, using aseptic technique. zb Blood collected. 13:30 CT Abd/Pelvis - IV Contrast Only In Process Unspecified. EDMS 19:43 Silver Gutierrez MD is Referral Physician. m 19:50 No provider procedures requiring assistance completed. IV discontinued, intact, zb bleeding controlled, No redness/swelling at site. Pressure dressing applied. Administered Medications: 13:13 Drug: morphine 4 mg {Note: RASS 0.} Route: IVP; Site: right antecubital; zb 13:50 Follow up: Response: No adverse reaction; Pain is decreased; RASS: Alert and Calm (0) zb 13:14 Drug: Zofran (Ondansetron) 4 mg Route: IVP; Site: right antecubital; zb 14:00 Follow up: Response: No adverse reaction; Nausea is decreased zb 14:16 Drug: Magnesium Citrate Liquid 300 ml Route: PO; zb 15:00 Follow up: Response: No adverse reaction zb 15:49 Drug: Zofran (Ondansetron) 4 mg Route: IVP; Site: right antecubital; zb 16:00 Follow up: Response: No adverse reaction; Nausea is decreased zb 16:18 Not Given (Physician Discretion): Fleet Enema (sodium phosphate) 133 ml NV once zb 17:21 Drug: Mineral Oil 133 ml Route: NV; zb 17:50 Follow up: Response: No adverse reaction; No change in condition zb 17:52 Drug: Tylenol 1000 mg Route: PO; zb 18:51 Follow up: Response: No adverse reaction zb 18:01 Drug: Ativan (LORazepam) 1 mg Route: IVP; Site: right antecubital; zb 18:51 Follow up: Response: No adverse reaction; Pain is decreased; RASS: Alert and Calm (0) zb 18:51 Not Given (Patient Refused): Mineral Oil 133 ml NV once zb 18:56 Drug: Milk of Magnesia (magnesium hydroxide) Suspension 400 mg/5 mL 30 ml Route: PO; zb 19:40 Follow up: Response: No adverse reaction zb 19:50 Drug: Dulcolax (bisacodyl) Suppository 10 mg Route: NV; zb 19:51 Follow up: Response: Medication administered at discharge. zb Outcome: 19:44 Discharge ordered by . konstantin 19:50 Discharged to home ambulatory. zb 19:50 Condition: good 19:50 Discharge instructions given to patient, Instructed on discharge instructions, follow up and referral plans. medication usage, Demonstrated understanding of instructions, follow-up care, medications, Prescriptions given X 1. 19:52 Patient left the ED. mw2 Signatures: Dispatcher [employer] EDMS Kyle Mack PA PA jmm Martinez, Amelia as [place], MyKena mw2 Marylin Tobin, RN RN Jo Lemus RN RN zb
[2021-04-04] MEDS ORDERED: BISACODYL 10 MG RECTAL SUPP ONE (20:09)
[2021-04-04 20:33] VITALS: TEMP 97.7
[2021-04-04 20:42] VITALS: BP 103/81; O2SAT 96
== END 2021-04-04 19:52 | disposition home or self-care (01) ==
LOC: ER 11:06
DX: K59.00 Constipation, unspecified (principal); Z98.890 Other specified postprocedural states; Z88.1 Allergy status to other antibiotic agents
CPT/HCPCS: 85025; 80048; 36415; 82565; 80076; 83690; 74177; Q9967; J2405 ×2; 96374; 96375; 99284

== ENCOUNTER 2022-07-05 13:50 | Emergency (ER) | payer OTHER ==
--- OUTSIDE RECORDS SUMMARY | 2022-07-05 13:55 | XMS REPORT | Continuity of Care Document ---
:1980 Author Organization [facility] t Address [address] [place] [address] Dr. Wilkerson [address] [place] [id number] Care Team Providers Name Role Phone Michi Glaser Primary Care Physician RADIOLOGY Attending Clinician Unavailable Radiology Attending Clinician Unavailable CHARLOTTE SRIVASTAVA Attending Clinician Unavailable Charlotte Srivastava MD Attending Clinician [place] Óscar VASQUEZ Attending Clinician Doctor Unassigned, [place] Attending Clinician Unavailable Aura Helton PHD Attending Clinician [phone] MD ELLIOT HOGAN Attending Clinician Unavailable ELLIOT HOGAN Attending Clinician Unavailable LUIS HOROWITZ Attending Clinician Unavailable ELLIOT HOGAN Attending Clinician Unavailable MD ELLIOT HOGAN Admitting Clinician Unavailable LUIS HOROWITZ Admitting Clinician Unavailable ELLIOT HOGAN Admitting Clinician Unavailable Payers Payer Name Policy Type Policy Number Effective Date Expiration Date S ource Problems Condition Condition Condition Status Onset Resolution Last Treating Co mments Source Name Details Category Date Date Treatment Clinician Date No known No known Disease Unive rs active active ity of problems problems [place] [facility] [place] Allergies, Adverse Reactions, Alerts Allergy Allergy Status Severity Reaction(s) Onset Inactive Treating Comm ents Source Name Type Date Date Clinician Corticos Propensi Active Other - See 2019-11 Flu like Univers teroids ty to comments 2-04 symptoms ity o f (Glucoco adverse 00:00: - Only [place] rticoids reaction 00 oral Medica l ) s Branch Corticos Propensi Active Other - See 2019-11 Flu like Univers teroids ty to comments 2-04 symptoms ity o f (Glucoco adverse 00:00: - Only [place] rticoids reaction 00 oral Medica l ) s Branch CORTICOS Drug Active Other-Cmnt 2019-11 Univ ers TEROIDS Class 2-04 ity of (GLUCOCO 00:00: [place] RTICOIDS 00 Medical ) Branch Ciproflo Drug Active Rash 2020-0 Univers xacin Allergy 4-27 ity of 00:00: [place] 00 Medical Branch CIPROFLO DRUG Active Low Rash 2020-0 Univers XACIN INGREDI 4-27 ity of 00:00: [place] 00 Medical Branch CIPROFLO Allergy Active [facility] XACIN (MIXTURE ) NO KNOWN Allergy Active [facility] ALLERGIE S OTHER Allergy Active [facility] Social History Social Habit Start Date Stop Date Quantity Comments Source History SDOH University o f Alcohol Std [place] [facility] Dr[facility] History SDOH University o f Alcohol Binge [place] [facility] Branch History SDOH University o f Alcohol Comment [place] [facility] Exposure to 2022-04-03 2022-04-13 Not sure [facility] SARS-CoV-2 00:00:00 09:55:00 [place] [facility] (event) Branch Alcohol intake 2022-04-13 2022-04-13 Ex-drinker University 00:00:00 00:00:00 (finding) [facility] Tobacco use and 2021-11-08 2021-11-08 Never used Universit y of exposure 00:00:00 00:00:00 [facility] History SDOH 2020-10-23 2020-10-23 1 University o f Alcohol Frequency 00:00:00 00:00:00 [facility] edical [place] Sex [birth year] At [birth year] Universit y of 00:00:00 00:00:00 [facility] Smoking Status Start Date Stop Date Source Former smoker 2021-11-08 00:00:00 2021-11-08 00:00:00 Universi ty of [facility] Medications Ordered Filled Start Stop Current Ordering Indication Dosage Frequency Signature Comments Components Source Medication Medication Date Date Medication? Clinician (SIG) Name Name juanita 2020-11 Yes [id number] 1{appli Insert 1 Univers one-pramovi 2-16 cator} Applicator ity of ne rectal 00:00: into [place] foam 00 rectum 2 Medical (two) Branch times daily. hydrocortis 2020-11 Yes [id number] 1{appli Insert 1 Univers one-pramovi 2-16 cator} Applicator ity of ne rectal 00:00: into [place] foam 00 rectum 2 Medical (two) Branch times daily. hydrocortis 2020-11 Yes [id number] 1{appli Insert 1 Univers one-pramovi 2-16 cator} Applicator ity of ne rectal 00:00: into [place] foam 00 rectum 2 Medical (two) Branch times daily. hydrocortis 2020-11 Yes [id number] 1{appli Insert 1 Univers one-pramovi 2-16 cator} Applicator ity of ne rectal 00:00: into [place] foam 00 rectum 2 Medical (two) Branch times daily. hydrocortis 2020-11 Yes [id number] 1{appli Insert 1 Univers one-pramovi 2-16 cator} Applicator ity of ne rectal 00:00: into [place] foam 00 rectum 2 Medical (two) Branch times daily. hydrocortis 2020-11 Yes [id number] 1{appli Insert 1 Univers one-pramovi 2-16 cator} Applicator ity of ne rectal 00:00: into [place] foam 00 rectum 2 Medical (two) Branch times daily. methylPREDN 2020-0 Yes [id number] Take by Univers ISolone 4 7-25 mouth ity of mg tablets 00:00: [place]-INSTRU [place] 00 CTIONS. Medical follow Branch package directions chlorhexidi 2020-0 Yes [id number] 15mL Swish and Univers ne 0.12 % 7-25 spit out ity of mouthwash 00:00: 15 mL 2 [place] [address] (two) Medical times Branch daily. methylPREDN 2020-0 Yes [id number] Take by Univers ISolone 4 7-25 mouth ity of mg tablets 00:00: [place]-INSTRU [place] CTIONS. Medical follow Branch package directions chlorhexidi 2020-0 Yes [id number] 15mL Swish and Univers ne 0.12 % 7-25 spit out ity of mouthwash 00:00: 15 mL 2 [place] 00 (two) Medical times Branch daily. methylPREDN 2020-0 Yes [id number] Take by Univers ISolone 4 7-25 mouth ity of mg tablets 00:00: SEE-INSTRU [place] 00 CTIONS. Medical follow Branch package directions chlorhexidi 2020-0 Yes [id number] 15mL Swish and Univers ne 0.12 % 7-25 spit out ity of mouthwash 00:00: 15 mL 2 [place] 00 (two) Medical times Branch daily. methylPREDN 202-0 Yes [id number] Take by Univers ISolone 4 7-25 mouth ity of mg tablets 00:00: SEE-INSTRU [place] CTIONS. Medical follow Branch package directions chlorhexidi 2020-0 Yes [id number] 15mL Swish and Univers ne 0.12 % 7-25 spit out ity of mouthwash 00:00: 15 mL 2 [place] 00 (two) Medical times Branch daily. methylPREDN 2020-0 Yes [id number] Take by Univers ISolone 4 7-25 mouth ity of mg tablets 00:00: SEE-INSTRU [place] 00 CTIONS. Medical follow Branch package directions chlorhexidi 2020-0 Yes [id number] 15mL Swish and Univers ne 0.12 % 7-25 spit out ity of mouthwash 00:00: 15 mL 2 [place] 00 (two) Medical times Branch daily. methylPREDN 2020-0 Yes [id number] Take by Univers ISolone 4 7-25 mouth ity of mg tablets 00:00: SEE-INSTRU [place] 00 CTIONS. Medical follow Branch package directions chlorhexidi 2020-0 Yes [id number] 15mL Swish and Univers ne 0.12 % 7-25 spit out ity of mouthwash 00:00: 15 mL 2 [place] 00 (two) Medical times Branch daily. albuterol 2019-11 Yes 2{puff} Inhale 2 U nivers 90 2-04 Puffs ity of mcg/actuati 08:54: every 6 [place] as on inhaler 52 (six) Medical hours as Branch needed for Wheezing or Shortness of Breath. dextroamphe 2019-11 Yes 10mg Take 10 mg Univers tamine-amph 2-04 by mouth ity of etamine 08:54: every [place] (ADDERALL) 52 morning. Medic al 10 mg Branch tablet albuterol 2019-11 Yes 2{puff} Inhale 2 U nivers 90 2-04 Puffs ity of mcg/actuati 08:54: every 6 [place] as on inhaler 52 (six) Medical hours as Branch needed for Wheezing or Shortness of Breath. dextroamphe 2020- Yes 10mg Take 10 mg Univers tamine-amph 2-04 by mouth ity of etamine 08:54: every [place] (ADDERALL) 52 morning. Medic al 10 mg Branch tablet albuterol 2020- Yes 2{puff} Inhale 2 U nivers 90 2-04 Puffs ity of mcg/actuati 08:54: every 6 [place] on inhaler 52 (six) Medical hours as Branch needed for Wheezing or Shortness of Breath. dextroamphe 2020- Yes 10mg Take 10 mg Univers tamine-amph 2-04 by mouth ity of etamine 08:54: every [place] (ADDERALL) 52 morning. Medic al 10 mg Branch tablet albuterol 2020- Yes 2{puff} Inhale 2 U nivers 90 2-04 Puffs ity of mcg/actuati 08:54: every 6 [place] on inhaler 52 (six) Medical hours as Branch needed for Wheezing or Shortness of Breath. dextroamphe 2020- Yes 10mg Take 10 mg Univers tamine-amph 2-04 by mouth ity of etamine 08:54: every [place] (ADDERALL) 52 morning. Medic al 10 mg Branch tablet albuterol 2019- Yes 2{puff} Inhale 2 U nivers 90 2-04 Puffs ity of mcg/actuati 08:54: every 6 [place] on inhaler 52 (six) Medical hours as Branch needed for Wheezing or Shortness of Breath. dextroamphe 2020- Yes 10mg Take 10 mg Univers tamine-amph 2-04 by mouth ity of etamine 08:54: every [place] (ADDERALL) 52 morning. Medic al 10 mg Branch tablet albuterol 2020-1 Yes 2{puff} Inhale 2 U nivers 90 2-04 Puffs ity of mcg/actuati 08:54: every 6 [place] on inhaler 52 (six) Medical hours as Branch needed for Wheezing or Shortness of Breath. dextroamphe 2020- Yes 10mg Take 10 mg Univers tamine-amph 2-04 by mouth ity of etamine 08:54: every [place] (ADDERALL) 52 morning. Medic al 10 mg Branch tablet HYDROcodone 2020- Yes 1{tbl} Take 1 Un nicolás -acetaminop 2-04 tablet by ity of hen 10-325 08:26: mouth. [place] mg tablet 44 Medical Branch LORazepam 1 2019- Yes 1mg Take 1 mg U nivers mg tablet 2-04 by mouth. ity o f 08:26: [place] [address] Medical Branch HYDROcodone 2020- Yes 1{tbl} Take 1 Un nicolás -acetaminop 2-04 tablet by ity of hen 10-325 08:26: mouth. [place] mg tablet 44 Medical Branch LORazepam 1 2019- Yes 1mg Take 1 mg U nivers mg tablet 2-04 by mouth. ity o f 08:26: [place] [address] Medical Branch HYDROcodone 2020- Yes 1{tbl} Take 1 Un nicolás -acetaminop 2-04 tablet by ity of hen 10-325 08:26: mouth. [place] mg tablet 44 Medical Branch LORazepam 1 2019- Yes 1mg Take 1 mg U nivers mg tablet 2-04 by mouth. ity o f 08:26: [place] [address] Medical Branch HYDROcodone 2020- Yes 1{tbl} Take 1 Un nicolás -acetaminop 2-04 tablet by ity of hen 10-325 08:26: mouth. [place] mg tablet 44 Medical Branch LORazepam 1 2019- Yes 1mg Take 1 mg U nivers mg tablet 2-04 by mouth. ity o f 08:26: [place] [address] Medical Branch HYDROcodone 2020- Yes 1{tbl} Take 1 Un nicolás -acetaminop 2-04 tablet by ity of hen 10-325 08:26: mouth. [place] mg tablet 44 Medical Branch LORazepam 1 2020- Yes 1mg Take 1 mg U nivers mg tablet 2-04 by mouth. ity o f 08:26: [place] [address] Medical Branch HYDROcodone 2020- Yes 1{tbl} Take 1 Un nicolás -acetaminop 2-04 tablet by ity of hen 10-325 08:26: mouth. [place] mg tablet 44 Medical Branch LORazepam 1 2020- Yes 1mg Take 1 mg U nivers mg tablet 2-04 by mouth. ity o f 08:26: [place] [address] Medical Branch Hydrocodone 2020- Yes 1{tbl} Take 1 Tab Univers -Acetaminop 2-04 by mouth 2 it y of hen (XODOL 08:22: (two) [place] ) 32 times Medical 10-300 mg daily. Branch tablet traMADOL 2019- Yes 50mg Take 50 mg Uni vers (ULTRAM) 50 2-04 by mouth ity of mg tablet 08:22: every 6 [place] 32 (six) Medical hours as Branch needed. Hydrocodone 2019- Yes 1{tbl} Take 1 Tab Univers -Acetaminop 2-04 by mouth 2 it y of hen (XODOL 08:22: (two) [place] ) 32 times Medical 10-300 mg daily. Branch tablet traMADOL 2019-11 Yes 50mg Take 50 mg Uni vers (ULTRAM) 50 2-04 by mouth ity of mg tablet 08:22: every 6 [place] 32 (six) Medical hours as Branch needed. Hydrocodone 2019- Yes 1{tbl} Take 1 Tab Univers -Acetaminop 2-04 by mouth 2 it y of hen (XODOL 08:22: (two) [place] [facility]) 32 times Medical 10-300 mg daily. Branch tablet traMADOL 2019-11 Yes 50mg Take 50 mg Uni vers (ULTRAM) 50 2-04 by mouth ity of mg tablet 08:22: every 6 [place] [address] (six) Medical hours as Branch needed. Hydrocodone 2019- Yes 1{tbl} Take 1 Tab Univers -Acetaminop 2-04 by mouth 2 it y of hen (XODOL 08:22: (two) [place] ) 32 times Medical 10-300 mg daily. Branch tablet traMADOL 2019- Yes 50mg Take 50 mg Uni vers (ULTRAM) 50 2-04 by mouth ity of mg tablet 08:22: every 6 [place] 32 (six) Medical hours as Branch needed. Hydrocodone 2019- Yes 1{tbl} Take 1 Tab Univers -Acetaminop 2-04 by mouth 2 it y of hen (XODOL 08:22: (two) [place] 10) 32 times Medical 10-300 mg daily. Branch tablet traMADOL 2019- Yes 50mg Take 50 mg Uni vers (ULTRAM) 50 2-04 by mouth ity of mg tablet 08:22: every 6 [place] 32 (six) Medical hours as Branch needed. Hydrocodone 2020- Yes 1{tbl} Take 1 Tab Univers -Acetaminop 2-04 by mouth 2 it y of hen (XODOL 08:22: (two) [place] ) 32 times Medical 10-300 mg daily. Branch tablet traMADOL 2019-11 Yes 50mg Take 50 mg Uni vers (ULTRAM) 50 2-04 by mouth ity of mg tablet 08:22: every 6 [place] 32 (six) Medical hours as Branch needed. methocarbam 2019-11 Yes Univer s oL 750 mg 1-30 ity of tablet 00:00: [place] [facility] methocarbam 2019-11 Yes Univer s oL 750 mg 1-30 ity of tablet 00:00: [place] [facility] methocarbam 2019-11 Yes Univer s oL 750 mg 1-30 ity of tablet 00:00: [place] [facility] methocarbam 2019-11 Yes Univer s oL 750 mg 1-30 ity of tablet 00:00: [place] [facility] methocarbam 2019-11 Yes Univer s oL 750 mg 1-30 ity of tablet 00:00: [place] [facility] methocarbam 2019-11 Yes Univer s oL 750 mg 1-30 ity of tablet 00:00: [address] Branch pregabalin 2019- Yes Univers 75 mg 1-04 ity of capsule 00:00: [place] [facility] pregabalin 2019- Yes Univers 75 mg 1-04 ity of capsule 00:00: [place] [facility] pregabalin 2019- Yes Univers 75 mg 1-04 ity of capsule 00:00: [place] [facility] Branch pregabalin 2019- Yes Univers 75 mg 1-04 ity of capsule 00:00: [place] [facility] pregabalin 2019- Yes Univers 75 mg 1-04 ity of capsule 00:00: [address] pregabalin 2019- Yes Univers 75 mg 1-04 ity of capsule 00:00: [address] dicyclomine 2019-0 Yes 10mg Take 10 mg Univers 10 mg 3-02 by mouth. ity of capsule 00:00: [place] [facility] dicyclomine 2020-0 Yes 10mg Take 10 mg Univers 10 mg 3-02 by mouth. ity of capsule 00:00: [place] [facility] dicyclomine 2019-0 Yes 10mg Take 10 mg Univers 10 mg 3-02 by mouth. ity of capsule 00:00: Medical Branch dicyclomine 2020-0 Yes 10mg Take 10 mg Univers 10 mg 3-02 by mouth. ity of capsule 00:00: Medical Branch dicyclomine 2020-0 Yes 10mg Take 10 mg Univers 10 mg 3-02 by mouth. ity of capsule 00:00: Medical Branch dicyclomine 2020-0 Yes 10mg Take 10 mg Univers 10 mg 3-02 by mouth. ity of capsule 00:00: [place] 00 Medical Branch carBAMazepi 2019-0 Yes [id number] 200mg Take 1 Univers ne 7-14 [id number] tablet by ity of (TEGRETOL) 00:00: mouth [place] 200 mg 00 every 12 Medical tablet (twelve) Branch hours. carBAMazepi 2019-0 Yes [id number] 200mg Take 1 Univers ne 7-14 [id number] tablet by ity of (TEGRETOL) 00:00: mouth [place] 200 mg 00 every 12 Medical tablet (twelve) Branch hours. carBAMazepi 2018-0 Yes [id number] 200mg Take 1 Univers ne 7-14 [id number] tablet by ity of (TEGRETOL) 00:00: mouth [place] 200 mg 00 every 12 Medical tablet (twelve) Branch hours. carBAMazepi 2019-0 Yes [id number] 200mg Take 1 Univers ne 7-14 [id number] tablet by ity of (TEGRETOL) 00:00: mouth [place] 200 mg 00 every 12 Medical tablet (twelve) Branch hours. carBAMazepi 2019-0 Yes [id number] 200mg Take 1 Univers ne 7-14 [id number] tablet by ity of (TEGRETOL) 00:00: mouth [place] 200 mg 00 every 12 Medical tablet (twelve) Branch hours. carBAMazepi 2018-0 Yes [id number] 200mg Take 1 Univers ne 7-14 [id number] tablet by ity of (TEGRETOL) 00:00: mouth [place] 200 mg 00 every 12 Medical tablet (twelve) Branch hours. traMADOL Yes 50mg Take 1 Univers (ULTRAM) 50 8-17 tablet by ity of mg tablet 00:00: mouth [place] 00 every 6 Medical (six) Branch hours as needed for Pain unrelieved by non-narcot ic analgesics . traMADOL Yes 50mg Take 1 Univers (ULTRAM) 50 8-17 tablet by ity of mg tablet 00:00: mouth [place] 00 every 6 Medical (six) Branch hours as needed for Pain unrelieved by non-narcot ic analgesics . traMADOL 2016-0 Yes 50mg Take 1 Univers (ULTRAM) 50 8-17 tablet by ity of mg tablet 00:00: mouth [place] 00 every 6 Medical (six) Branch hours as needed for Pain unrelieved by non-narcot ic analgesics . traMADOL 2016-0 Yes 50mg Take 1 Univers (ULTRAM) 50 8-17 tablet by ity of mg tablet 00:00: mouth [place] 00 every 6 Medical (six) Branch hours as needed for Pain unrelieved by non-narcot ic analgesics . traMADOL 2016-0 Yes 50mg Take 1 Univers (ULTRAM) 50 8-17 tablet by ity of mg tablet 00:00: mouth [place] 00 every 6 Medical (six) Branch hours as needed for Pain unrelieved by non-narcot ic analgesics . traMADOL 2016-0 Yes 50mg Take 1 Univers (ULTRAM) 50 8-17 tablet by ity of mg tablet 00:00: mouth [place] 00 every 6 Medical (six) Branch hours as needed for Pain unrelieved by non-narcot ic analgesics . amoxicillin 2016-0 Yes 500mg Take 1 Uni vers (TRIMOX) 6-03 capsule by ity o f 500 mg 00:00: mouth 3 [place] capsule 00 (three) Medical times Branch daily. amoxicillin 2016-0 Yes 500mg Take 1 Uni vers (TRIMOX) 6-03 capsule by ity o f 500 mg 00:00: mouth 3 [place] capsule 00 (three) Medical times Branch daily. amoxicillin 2016-0 Yes 500mg Take 1 Uni vers (TRIMOX) 6-03 capsule by ity o f 500 mg 00:00: mouth 3 [place] capsule 00 (three) Medical times Branch daily. amoxicillin 2016-0 Yes 500mg Take 1 Uni vers (TRIMOX) 6-03 capsule by ity o f 500 mg 00:00: mouth 3 [place] capsule 00 (three) Medical times Branch daily. amoxicillin 2016-0 Yes 500mg Take 1 Uni vers (TRIMOX) 6-03 capsule by ity o f 500 mg 00:00: mouth 3 [place] capsule 00 (three) Medical times Branch daily. amoxicillin 2016-0 Yes 500mg Take 1 Uni vers (TRIMOX) 6-03 capsule by ity o f 500 mg 00:00: mouth 3 [place] capsule 00 (three) Medical times Branch daily. levofloxaci 2016-0 Yes 500mg Take 1 Uni vers n 5-20 tablet by ity of (LEVAQUIN) 00:00: mouth [place] 500 mg 00 every 24 Medical tablet (twenty-fo Branch ur) hours. phenazopyri 2016-0 Yes 200mg Take 1 Uni vers dine 5-20 tablet by ity of (PYRIDIUM) 00:00: mouth 3 [place] 200 [place] 00 (three) Medical tablet times Branch daily. traMADOL 2016-0 Yes 50mg Take 1 Univers (ULTRAM) 50 5-20 tablet by ity of mg tablet 00:00: mouth [place] 00 every 6 Medical (six) Branch hours as needed for Pain (scale 7-10). levofloxaci 2016-0 Yes 500mg Take 1 Uni vers n 5-20 tablet by ity of (LEVAQUIN) 00:00: mouth [place] 500 mg 00 every 24 Medical tablet (twenty-fo Branch ur) hours. phenazopyri 2016-0 Yes 200mg Take 1 Uni vers dine 5-20 tablet by ity of (PYRIDIUM) 00:00: mouth 3 [place] 200 [place] 00 (three) Medical tablet times Branch daily. traMADOL 2016-0 Yes 50mg Take 1 Univers (ULTRAM) 50 5-20 tablet by ity of mg tablet 00:00: mouth [place] 00 every 6 Medical (six) Branch hours as needed for Pain (scale 7-10). levofloxaci 2016-0 Yes 500mg Take 1 Uni vers n 5-20 tablet by ity of (LEVAQUIN) 00:00: mouth [place] 500 mg 00 every 24 Medical tablet (twenty-fo Branch ur) hours. phenazopyri 2016-0 Yes 200mg Take 1 Uni vers dine 5-20 tablet by ity of (PYRIDIUM) 00:00: mouth 3 [place] 200 [place] 00 (three) Medical tablet times Branch daily. traMADOL 2016-0 Yes 50mg Take 1 Univers (ULTRAM) 50 5-20 tablet by ity of mg tablet 00:00: mouth [place] 00 every 6 Medical (six) Branch hours as needed for Pain (scale 7-10). levofloxaci 2016-0 Yes 500mg Take 1 Uni vers n 5-20 tablet by ity of (LEVAQUIN) 00:00: mouth [place] 500 mg 00 every 24 Medical tablet (twenty-fo Branch ur) hours. phenazopyri 2016-0 Yes 200mg Take 1 Uni vers dine 5-20 tablet by ity of (PYRIDIUM) 00:00: mouth 3 [place] 200 [place] 00 (three) Medical tablet times Branch daily. traMADOL 2016-0 Yes 50mg Take 1 Univers (ULTRAM) 50 5-20 tablet by ity of mg tablet 00:00: mouth [place] 00 every 6 Medical (six) Branch hours as needed for Pain (scale 7-10). levofloxaci 2016-0 Yes 500mg Take 1 Uni vers n 5-20 tablet by ity of (LEVAQUIN) 00:00: mouth [place] 500 mg 00 every 24 Medical tablet (twenty-fo Branch ur) hours. phenazopyri 2016-0 Yes 200mg Take 1 Uni vers dine 5-20 tablet by ity of (PYRIDIUM) 00:00: mouth 3 [place] 200 mg 00 (three) Medical tablet times Branch daily. traMADOL 2016-0 Yes 50mg Take 1 Univers (ULTRAM) 50 5-20 tablet by ity of mg tablet 00:00: mouth [place] 00 every 6 Medical (six) Branch hours as needed for Pain (scale 7-10). levofloxaci 2016-0 Yes 500mg Take 1 Uni vers n 5-20 tablet by ity of (LEVAQUIN) 00:00: mouth [place] 500 mg 00 every 24 Medical tablet (twenty-fo Branch ur) hours. phenazopyri 2016-0 Yes 200mg Take 1 Uni vers dine 5-20 tablet by ity of (PYRIDIUM) 00:00: mouth 3 [place] 200 mg 00 (three) Medical tablet times Branch daily. traMADOL 2016-0 Yes 50mg Take 1 Univers (ULTRAM) 50 5-20 tablet by ity of mg tablet 00:00: mouth [place] 00 every 6 Medical (six) Branch hours as needed for Pain (scale 7-10). benzonatate 2014- Yes 200mg Take 1 Cap Univers (TESSALON) 0-21 by mouth 3 ity of 200 mg 00:00: (three) [place] capsule 00 times Medical daily as Branch needed for Cough. benzonatate 2014- Yes 200mg Take 1 Cap Univers (TESSALON) 0-21 by mouth 3 ity of 200 mg 00:00: (three) [place] capsule 00 times Medical daily as Branch needed for Cough. benzonatate 2014-11 Yes 200mg Take 1 Cap Univers (TESSALON) 0-21 by mouth 3 ity of 200 mg 00:00: (three) [place] capsule 00 times Medical daily as Branch needed for Cough. benzonatate 2014-11 Yes 200mg Take 1 Cap Univers (TESSALON) 0-21 by mouth 3 ity of 200 mg 00:00: (three) [place] capsule 00 times Medical daily as Branch needed for Cough. benzonatate 2014-11 Yes 200mg Take 1 Cap Univers (TESSALON) 0-21 by mouth 3 ity of 200 mg 00:00: (three) [place] capsule 00 times Medical daily as Branch needed for Cough. benzonatate 2014-11 Yes 200mg Take 1 Cap Univers (TESSALON) 0-21 by mouth 3 ity of 200 mg 00:00: (three) [place] capsule 00 times Medical daily as Branch needed for Cough. Vital Signs Vital Name Observation Time Observation Value Comments Source Systolic [facility] 2021-12-02 16:42:00 134 [facility] 2021-12-02 16:42:00 87 mm[Hg] [facility] Heart rate 2021-12-02 16:42:00 82 /min [facility] Body temperature 2021-12-02 16:42:00 36.67 [facility] Respiratory rate 2021-12-02 16:42:00 18 /min [facility] Body height 2021-12-02 16:42:00 162.6 cm [facility] Body weight 2021-12-02 16:42:00 44.77 kg [facility] BMI 2021-12-02 16:42:00 16.94 kg/m2 [facility] Oxygen saturation in 2021-12-02 16:42:00 99 /min [facility] Arterial blood by [facility] Pulse oximetry Branch Procedures Procedure Date / Time Performing Clinician Source Performed BI DIAGNOSTIC 2022-04-13 15:42:00 Requisition, Paper [facility] TOMOSYNTHESIS BILATERAL Medical Branch Encounters Start End Encounter Admission Attending Care Care Encounter Source Date/Time Date/Time Type Type Clinicians Facility Department ID 2020-03-16 Inpatient [facility] [id number] [facility] 07:34:00 [id number] 2022-04-19 2022-04-19 Outpatient R RADIOLOGY [facility] [id number] Univers 15:30:00 15:30:00 [id number] ity [facility] 2022-04-13 2022-04-13 [facility] Radiology [facility] [id number] Univers 09:58:19 23:59:00 Encounter SPECIALTY [id number] ity [id number] [place] dic[place]olly [place] [facility] 2022-04-13 2022-04-13 Outpatient R RADIOLOGY [facility] [id number] Univers 11:30:00 11:30:00 [id number] ity [facility] 2022-04-13 2022-04-13 Outpatient R RADIOLOGY [facility] [id number] Univers 09:56:57 09:57:00 ity of [facility] 2022-04-13 2022-04-13 [facility] Radiology [facility] [id number] Univers 09:56:57 09:57:00 Encounter SPECIALTY [id number] ity of C[id number] [place] j[place]cee [place] [address] [facility] 2022-02-25 2022-02-25 [facility] [id number] Univers 11:45:00 11:45:00 [place] ity [facility] 2022-02-25 2022-02-25 [facility] [id number] Univers 11:45:00 11:45:00 [place] [id number] ity [facility] 2022-02-04 2022-02-04 Lorin Srivastava [facility] [id number] Univers 00:00:00 00:00:00 [facility] [id number] it y of [id number] - [id number] Med ical [address] 2022-02-03 2022-02-03 Outpatient Maurizio SRIVASTAVA [facility] [id number] Univers 14:15:00 14:15:00 [place] mercedes of [facility] 2021-12-09 2021-12-09 Telephone [facility] [id number] Univers 00:00:00 00:00:00 Óscar Baltazar [facility] [id number] ity of CANCER [id number] [facility] - [phone] Med [place] [address] [address] 2021-12-02 2021-12-02 Office [facility] [id number] Univers 10:30:00 11:00:00 Visit Óscar Baltazar [facility] [id number] ity of CANCER [id number] [facility] - [phone] Med [facility] [address] 2021-03-31 2021-03-31 Orders Doctor [place] [id number] 00:00:00 00:00:00 Only Unassigned, B[place] [id number] [place] [facility] [id number] 2021-03-01 2021-03-01 Office Angela [facility] [id number] 08:15:22 12:15:22 [facility] [id number] [place] 4.2.7.2.686 [place] [id number] [place] [address] Office Building 2021-01-14 2021-01-14 Outpatient MAGNOLIA [facility] [id number] [place] 00:00:00 00:00:00 ELLIOT [address] 2020-03-13 2020-03-13 Outpatient [facility] [id number] 0-2 [facility] 00:00:00 00:00:00 [id number] 2020-03-10 2020-03-10 Outpatient [facility] [id number] 0-2 [facility] 00:00:00 00:00:00 [id number] 2020-02-07 Outpatient [facility] [id number] 0-2 [facility] 11:11:00 11:11:00 [id number] 2020-02-04 2020-02-04 Outpatient [facility] [id number] 0-2 [facility] 00:00:00 00:00:00 [id number] Results Test Description Test Time Test Comments Results Result Comments Source SARS-CoV-2 (COVID-19) RNA [Presence] in Respiratory sp ecimen by 2021-01-14 19:46:38 BRITTNEY with probe detection Test Item Value Reference Range Interpretation Comme nts SARS-CoV-2 (COVID-19) RNA [Presence] in Respiratory Not detected No t-Detected specimen by BRITTNEY with probe detection (test code = 49902-2) [id number] 06:32:00 Test Item Value Reference Range Interpretation Comments PHOSPHORUS (BEAKER) (test code = 1.8 mg/dL 2.3-4.7 L 604) Process Operator ID - [id number] 06:32:00 Test Item Value Reference Range Interpretation Comments MAGNESIUM (BEAKER) (test code = 1.9 mg/dL 1.6-2.6 627) Process Operator ID - LABASIC METABOLIC [id number] 06:32:00 Test Item Value Reference Range Interpretation [...] S NOT APPLICABLE FOR DIALYSIS PATIEN TS. Process Operator ID - LAHEPATIC FUNCTION [id number] 06:32:00 Test Item Value Reference Range Interpretation [...] code = 126 U/L 6-55 H 347) Process Operator ID - LACBC (HEMOGRAM ONLY)2020-03-19 05:59:00 Test [...] 0-0 (BEAKER) (test code = 413) TISSUE [id number] 10:16:00Surgical Pathology Report Case: [id number] Authorizing Provider: Luis Horowitz MD Collected: 03/16/2020 10:21 AM Ordering Location: [facility] PERIOPERATIVE Received: 03/16/2020 11:20 AM SERVICES Pathologist : Luis Dubois MD Specimen: Tumor, Liver Tumor, Segment 2 A. 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 Signing Pathologist Direct Phone Line: [phone] signed by Luis Dubois MD on 03/18/2020 at 10:16 [id number] mass A. Liver tumor, segment 2A. The specimen is received fresh labelled with the patient's name, medical record number and "tumor" and consists of an 11.2g, 3.6 x 3 x 2.1 cm irregular portion of liver. The capsule is maroon-purple and smooth. The exposedparenchyma is completely cauterized. The margin is inked blue, and the specimen is serially sectioned to reveal an irregular, smart, fibrous area towards one end measuring 1.5 x 1 x 0.5 cm. This area is0.5 cm from the margin. The remaining parenchyma is red-brown and smooth. The specimen is entirely submitted sequentially in A1-A9.WILLIAM Schultz PA (ASCP)PERFORMED. [facility], Department of Pathology, [address] [place] [address], [facility], [address] [place] [address], [facility], [facility], [address] [place] [address], USJHBJAVOQ 2020-03-18 06:39:00 Test Item Value Reference Range Interpretation Comments PHOSPHORUS (BEAKER) (test code = 2.1 mg/dL 2.3-4.7 L 604) Process Operator ID - [id number] 06:39:00 Test Item Value Reference Range Interpretation Comments MAGNESIUM (BEAKER) (test code = 1.7 mg/dL 1.6-2.6 627) Process Operator ID - DBBASIC METABOLIC [id number] 06:39:00 Test Item Value Reference Range Interpretation [...] S NOT APPLICABLE FOR DIALYSIS PATIEN TS. Process Operator ID - DBHEPATIC FUNCTION [id number] 06:39:00 Test Item Value Reference Range Interpretation [...] code = 155 U/L 6-55 H 347) Process Operator ID - DBCBC (HEMOGRAM ONLY)2020-03-18 05:51:00 Test [...] (BEAKER) (test code = 413) HEPATIC FUNCTION [id number] 06:52:00 Test Item Value Reference Range Interpretation [...] code = 161 U/L 6-55 H 347) Process Operator ID - MARCELA MBASIC METABOLIC [id number] 06:52:00 Test Item Value Reference Range Interpretation [...] S NOT APPLICABLE FOR DIALYSIS PATIEN TS. Process Operator ID - MARCELA MCBC (HEMOGRAM ONLY)2020-03-17 06:24:00 [...] 413) CT, ABDOMEN, WITHOUT / WITH IV [id number] 11:33:00FINAL REPORT CT of the abdomen, with and without contrast Clinical History: live r tumor Technique: CT of the abdomen is [...] no mass, hydronephrosis or radiopaque stone. No evidenceof bowel obstruction. No ascites, or lymphadenopathy. Osseous [...] No significant biliary ductal dilatation. Signed: Brennon Bentleyort Verified Date/Time: 03/10/2020 11:33:02 Reading Location: [address] Consult Reading Room FINE NEEDLE ASPIRATION BY [id number] 15:03:00 Medical Cytology Report Case: [id number] Authorizing Provider: Elliot Hogan MD Collected: 02/07/2020 1414 Ordering Location: [facility] Endoscopy Received: 02/07/2020 1521 Services Pathologist: Maricruz Garcia MD Specimen: Liver, Left liver mass FNA in CRR LEFT LOBE LIVER MASS FNA BY CLINICIAN (CYTOSPINS AND CELL BLOCK OF ASPIRATE): - NO MALIGNANT CELLS IDENTIFIED PREDOMINANTLY ACUTE INFLAMMATION PRESENT Signing Pathologist Direct Phone Line: [phone] signed by Maricruz Garcia MDon 02/10/2020 at 3:03 PMClinical correlation is recommended.27548, 28685(4.0 X 2.3 cm) irregular mass in the left lobe of the liverLEFT LOBE LIVER MASS FNA30 mls in cytorich red; 4 cytospins, cell blockCollected: [id number]: [id number] is blood and admixed acute inflammation. Focal benign glandular epithelium and non-keratinized squamous epithelium is present, likely from FNA tract.[facility], Department of Pathology, [address] [place] [address], [facility], [facility], [address] [place] [address], [facility], [facility], [address] [place] [address], ICEC NEEDLE ASPIRATE (FNA) [id number] 17:00:00 Test Item Value Reference Range Interpretation Comments CYTOLOGY RESULT POINTER See Separate Report (MARTIN) (test code = 2629) [place], [id number] 14:49:00Reason for exam:->abnormal imagingFINAL REPORT Technique: ERCP dated 02/07/2020 HISTORY: Abnormal imaging COMPARISON: ERCP dated 05/19/2015 IMPRESSION:Total fluoroscopy time is one minute. Total number of images is two. Images show contrast within the biliary system. Please see operative report for details. Signed: [place] Verified Date/Time: 02/07/2020 14:49:28 Reading Location: [address] Radiology Reading Room
[2022-07-05 15:07] LABS: Absolute Lymphocytes (CBC) 1.6 K/uL (0.7-4.9); Hematocrit 46.7 % (36.0-45.0); Lymphocytes % 17.8 % (15.3-44.8); MCV 90.1 fL (80-100); MPV 8.4 fL (7.6-11.3); RBC Red Blood Cell Count 5.18 M/uL (3.86-4.86)
[2022-07-05 15:34] LABS: Bilirubin Total 0.2 mg/dL (0.2-1.0); Potassium 4.2 mmol/L (3.5-5.1); Protein, Total 7.5 g/dL (6.4-8.2)
[2022-07-05] MEDS ORDERED: KETOROLAC 30 MG/ML INJ ONE (15:38)
--- NOTE | 2022-07-05 16:25 | RAD REPORT ---
EXAM DESCRIPTION: Diaz Angio07/05/2022 4:12 pm CLINICAL HISTORY: Neck pain COMPARISON: 2014 TECHNIQUE: 50 cc Isovue 370 was administered intravenously. 3D MIP reconstruction performed All CT scans are performed using dose optimization technique as appropriate and may include automated exposure control or mA/KV adjustment according to patient size. FINDINGS: The common, internal and external carotid arteries bilaterally are unremarkable. Right vertebral artery is dominant. No dissection noted. IMPRESSION: No significant abnormalities displayed NASCET criteria used. Mild 0-49% stenosis Moderate 50-69% stenosis Severe 70-99% stenosis
--- NOTE | 2022-07-05 17:13 | ER ---
Nurse's Notes [facility] Name: Evelyn Chawla Age: 41 yrs Sex: Female : 1980 Arrival Date: 07/05/2022 Time: 13:53 Bed 15 Private MD: Diagnosis: Neck pain;Cellulitis of left arm;Cellulitis of chest Presentation: 07/05 14:02 Chief complaint: Right sided neck pain and painful rash on shoulders and chest x 2 hb days. Coronavirus screen: At this time, the client does not indicate any symptoms associated with coronavirus-19. Ebola Screen: No symptoms or risks identified at this time. Risk Assessment: Do you want to hurt yourself or someone else? Patient reports no desire to harm self or others. Onset of symptoms was July 03, 2022. 14:02 Method Of Arrival: Ambulatory hb 14:02 Acuity: ISRELA 3 hb 14:05 Initial Sepsis Screen: Does the patient meet any 2 criteria? No. Patient's initial jg9 sepsis screen is negative. Does the patient have a suspected source of infection? No. Patient's initial sepsis screen is negative. Triage Assessment: 15:00 General: Behavior is crying. Pain: Complains of pain in right arm and left arm. jg9 15:28 General: Appears. 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 - Social history:: Smoking status: Patient reports the use of cigarette tobacco products, smokes one pack cigarettes per day. Screenin:28 Abuse screen: Denies threats or abuse. Denies injuries from another. Nutritional jg9 screening: No deficits noted. Tuberculosis screening: No symptoms or risk factors identified. Fall Risk None identified. Assessment: 17:30 Neuro: Level of Consciousness is awake, alert, obeys commands. jg9 Vital Signs: 14:02 BP 154 / 97; Pulse 92; Resp 20; Temp 97.7; Pulse Ox 100% on R/A; Pain 8/10; hb 17:15 BP 154 / 99; Pulse 66; Resp 17 S; Pulse Ox 100% on R/A; jg9 17:30 BP 146 / 85; Pulse 63; Resp 16 S; Pulse Ox 95% ; Pain 6/10; jg9 ED Course: 13:53 Patient arrived in ED. rg4 13:56 Vishnu Kaur DO is Attending Physician. ms3 14:04 Triage completed. hb 14:05 Arm band placed on. hb 15:00 Inserted saline lock: 22 gauge in left forearm, using aseptic technique. jg9 15:26 Veronica Fleming, COURTNEY is Primary Nurse. jg9 15:28 Patient has correct armband on for positive identification. Bed in low position. Call jg9 light in reach. Side rails up X 1. 16:13 CT Neck Angio In Process Unspecified. EDMS 17:12 Jose Eduardo Tse DO is Referral Physician. ms3 17:44 No provider procedures requiring assistance completed. jg9 17:44 IV discontinued. jg9 Administered Medications: 15:41 Drug: TORadol (ketorolac) 10 mg Route: IVP; Site: left forearm; jg9 16:20 Follow up: Response: No adverse reaction; Pain is unchanged, physician notified jg9 17:32 Drug: HYDROcodone-acetaminophen 5 mg-325 mg 1 tabs {Note: RASS-0 pain 6/10.} Route: PO; jg9 17:44 Follow up: Response: No adverse reaction; Medication administered at discharge. jg9 Medication: 17:44 VIS not applicable for this client. jg9 Outcome: 17:12 Discharge ordered by . ms3 17:44 Discharged to home ambulatory. jg9 17:44 Condition: stable 17:44 Discharge instructions given to patient, Instructed on discharge instructions, follow up and referral plans. Demonstrated understanding of instructions, follow-up care, Prescriptions given X 2. 17:45 Patient left the ED. jg9 Signatures: Dispatcher [employer] EDMS Asha Mendoza RN RN hb Garcia, Rubi rg4 Vishnu Kaur DO DO ms3 Veronica Fleming, RN RN jg9 Corrections: (The following items were deleted from the chart) 14:05 14:02 Chief complaint: Right sided neck pain and rash x 2 days. hb hb
--- NOTE | 2022-07-05 17:14 | EDPHYS ---
Physician Documentation [facility] Name: Evelyn Chawla Age: 41 yrs Sex: Female : 1980 Arrival Date: 07/05/2022 Time: 13:53 Bed 15 Private MD: ED Physician Vishnu Kaur HPI: 07/05 15:03 This 41 yrs old Female presents to ER via Ambulatory with complaints of Neck Pain, ms3 <24hrs Old, Weakness, Nausea, Rash. 15:03 The patient or guardian complains of pain, that is acute. The symptoms are located ms3 Right side of neck. Onset: The symptoms/episode began/occurred 2 day(s) ago. Context: The problem was sustained The neck injury/problem resulted from unknown. Associated signs and symptoms: Pertinent negatives: numbness. The pain does not radiate. Modifying factors: The symptoms are alleviated by nothing. the symptoms are aggravated by nothing. Severity of symptoms: At their worst the symptoms were severe, in the emergency department the symptoms are unchanged. 41 yo female presents for right sided neck pain for 2 days. patient endorses rash, muscle aches and neck pain that are aching and severe. Patient states she has taken Tylenol and Ibuprofen for pain without relief.. 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 - Social history:: Smoking status: Patient reports the use of cigarette tobacco products, smokes one pack cigarettes per day. ROS: 15:03 Constitutional: Negative for fever, and chills. Cardiovascular: Negative for chest ms3 pain, and palpitations. Respiratory: Negative for shortness of breath, cough, wheezing, and pleuritic chest pain, Abdomen/GI: Negative for abdominal pain, nausea, vomiting, diarrhea, and constipation. 15:03 Neck: Positive for pain with movement. 15:03 Skin: Positive for rash. 15:03 All other systems are negative. Exam: 15:03 Constitutional: This is a well developed, well nourished patient who is awake, alert, ms3 and in no acute distress. Head/Face: Normocephalic, atraumatic. Chest/axilla: Normal chest wall appearance and motion. Nontender with no deformity. Cardiovascular: Regular rate and rhythm with a normal S1 and S2. No gallops, murmurs, or rubs. Normal PMI, no JVD. No pulse deficits. Respiratory: Lungs have equal breath sounds bilaterally, clear to auscultation and percussion. No rales, rhonchi or wheezes noted. No increased work of breathing, no retractions or nasal flaring. Abdomen/GI: Soft, non-tender, with normal bowel sounds. No distension or tympany. No guarding or rebound. No evidence of tenderness throughout. 15:03 Neuro: Awake and alert, GCS 15, oriented to person, place, time, and situation. Cranial nerves II-XII grossly intact. Motor strength 5/5 in all extremities. Sensory grossly intact. Cerebellar exam normal. Normal gait. 15:03 Neck: External neck: tenderness, that is moderate, Right lateral neck. 15:03 Skin: cellulitis, that is moderate, patchy, on the right arm, chest. Vital Signs: 14:02 BP 154 / 97; Pulse 92; Resp 20; Temp 97.7; Pulse Ox 100% on R/A; Pain 8/10; hb 17:15 BP 154 / 99; Pulse 66; Resp 17 S; Pulse Ox 100% on R/A; jg9 17:30 BP 146 / 85; Pulse 63; Resp 16 S; Pulse Ox 95% ; Pain 6/10; jg9 MDM: 14:53 Patient medically screened. ms3 15:03 Differential diagnosis: Cellulitis vs Vertebral artery dissection vs msk pain vs muscle ms3 spasm. 17:43 Data reviewed: vital signs, nurses notes, lab test result(s), radiologic studies, and ms3 as a result, I will discharge patient. Counseling: I had a detailed discussion with the patient and/or guardian regarding: the historical points, exam findings, and any diagnostic results supporting the discharge/admit diagnosis, lab results, radiology results, the need for outpatient follow up, to return to the emergency department if symptoms worsen or persist or if there are any questions or concerns that arise at home. 07/05 14:20 Order name: CBC with Diff; Complete Time: 15:52 ms3 07/05 14:20 Order name: CMP; Complete Time: 15:52 ms3 07/05 14:20 Order name: CK; Complete Time: 15:52 ms3 07/05 14:20 Order name: CT Neck Angio; Complete Time: 16:45 ms3 07/05 14:20 Order name: IV Saline Lock; Complete Time: 15:27 ms3 07/05 14:20 Order name: Labs collected and sent; Complete Time: 15:27 ms3 Administered Medications: 15:41 Drug: TORadol (ketorolac) 10 mg Route: IVP; Site: left forearm; jg9 16:20 Follow up: Response: No adverse reaction; Pain is unchanged, physician notified jg9 17:32 Drug: HYDROcodone-acetaminophen 5 mg-325 mg 1 tabs {Note: RASS-0 pain 6/10.} Route: PO; jg9 17:44 Follow up: Response: No adverse reaction; Medication administered at discharge. jg9 Disposition Summary: 07/05/22 17:12 Discharge Ordered Location: Home ms3 Condition: Stable ms3 Diagnosis - Neck pain ms3 - Cellulitis of left arm ms3 - Cellulitis of chest ms3 Followup: ms3 - With: Jose Eduardo Tse DO - When: 2 - 3 days - Reason: Recheck today's complaints Discharge Instructions: - Discharge Summary Sheet ms3 - Cellulitis, Adult, [id number] ms3 Forms: - Medication Reconciliation Form ms3 - Thank You Letter ms3 - Antibiotic Education ms3 - Prescription Opioid Use ms3 Prescriptions: - Ibuprofen 600 mg Oral Tablet - take 1 tablet by ORAL route every 6 hours As needed take with food; 30 tablet; ms3 Refills: 0, Product Selection Permitted - Doxycycline Hyclate 100 mg Oral Tablet - take 1 tablet by ORAL route every 12 hours; 20 tablet; Refills: 0, Product ms3 Selection Permitted Signatures: Dispatcher [employer] Asha Jackson RN RN Vishnu Sue DO DO ms3 Veronica Fleming RN RN jg9 Corrections: (The following items were deleted from the chart) 17:28 14:20 Urine Test ordered. ms3 jg9
[2022-07-05] MEDS ORDERED: HYDROCODONE/APAP 5/325 MG TAB ONE (17:47)
[2022-07-05 19:03] VITALS: TEMP 97.7
[2022-07-05 19:08] VITALS: BP 146/85; O2SAT 95
== END 2022-07-05 17:45 | disposition home or self-care (01) ==
LOC: ER 13:50
DX: L03.114 Cellulitis of left upper limb (principal); L03.313 Cellulitis of chest wall; M54.2 Cervicalgia; F17.210 Nicotine dependence, cigarettes, uncomplicated; Z88.1 Allergy status to other antibiotic agents
CPT/HCPCS: 85025; 36415; 82550; 80053; 70498; Q9967; 96374; 99284

== ENCOUNTER 2024-07-26 15:51 | Emergency (ER) | payer OTHER ==
[2024-07-26 17:37] LABS: Absolute Basophils 0.1 K/uL (0-0.5); Absolute Eosinophils 0.1 K/uL (0-0.5); Absolute Lymphocytes (CBC) 2.1 K/uL (0.7-4.9); Absolute Monocytes 1.1 K/uL (0.1-1.3); Absolute Neutrophil 10.4 K/uL (1.8-8.0); Basophils % 0.4 % (0-1.3); Eosinophils % 0.4 % (0-4.4); Hematocrit 43.6 % (36.0-45.0); Hemoglobin 14.4 g/dL (12.0-15.0); Lymphocytes % 15.6 % (15.3-44.8); MCH 30.4 pg (27.0-35.0); MCHC 33.1 g/dL (32.0-36.0); Monocytes % 8.3 % (3.3-12.3); Neutrophils % 75.3 % (41.7-73.7); Nucleated Red Blood Cells % 0.1 % (0-0); Platelets 279 thou/uL (152-406); RBC Red Blood Cell Count 4.75 M/uL (3.86-4.86)
[2024-07-26] MEDS ORDERED: MORPHINE 4 MG/ML SYR ONE (17:48)
[2024-07-26] MEDS ORDERED: ONDANSETRON 4 MG/2 ML VIAL ONE (17:48)
[2024-07-26 17:57] LABS: PT Prothrombin Time 10.6 SECONDS (9.4-12.5); PTT, Activated Partial Thromb 28.8 SECONDS (24.3-36.9); Protime INR 0.94
[2024-07-26 18:02] LABS: Albumin/Globulin Ratio 1.3 (1.1-1.8); Anion Gap 10.6 mEq/L (5.0-15.0); Bilirubin Total 0.5 mg/dL (0.2-1.0); Globulin 3.2 g/dL (2.3-3.5); Potassium 3.6 mEq/L (3.5-5.1); Protein, Total 7.2 g/dL (6.4-8.2); Thyroid Stimulating Hormone 0.663 uIU/mL (0.358-3.740)
[2024-07-26] MEDS ORDERED: FENTANYL CITR 100 MCG/2 ML ONE ×2 (19:37→21:55)
--- NOTE | 2024-07-26 20:44 | RAD REPORT ---
EXAM DESCRIPTION: CT - Abdomen Pelvis W Contrast - 07/26/2024 7:59 pm CLINICAL HISTORY: ABD PAIN COMPARISON: Abdomen Pelvis W Contrast dated 04/04/2021; Abdomen Pelvis W Contrast dated 01/17/2021 ; Abdomen Pelvis W Contrast dated 05/14/2018; Abdomen Pelvis W Contrast dated 08/30/2016 TECHNIQUE: Thin cut axial CT imaging of the abdomen and pelvis was performed following intravenous a dministration of 100 mL Isovue 300. Multiplanar reformats were generated and reviewed. All CT scans are performed using dose optimization technique as appropriate and may include automated exposure control or mA/KV adjustment according to patient size. FINDINGS: No suspicious findings in the lung bases. Two metallic clips underneath the diaphragm near the midline, stable. The liver shows a stable ill-defined 9 mm hypoattenuated lesion near the dome, may represent a small cyst or hemangioma. Spleen, adrenal glands, and pancreas show no suspicious findings. Gallbladder was surgically removed. Symmetric renal function is seen with no hydronephrosis or suspicious renal mass. No dilated bowel loops or bowel wall thickening. No free air, free fluid or inflammatory stranding. N o hernia, mass or bulky lymphadenopathy. The urinary bladder is without significant finding. No suspicious bony findings. IMPRESSION: No acute intra-abdominal process. Incidental findings as above.
--- NOTE | 2024-07-26 21:50 | ER ---
Nurse's Notes [facility] Name: Evelyn Chawla Age: 43 yrs Sex: Female : 1980 Arrival Date: 07/26/2024 Time: 15:51 Bed 13 Private MD: Diagnosis: Upper abdominal pain, unspecified;Localized edema Presentation: 07/26 16:01 Chief complaint: Patient states: Monday pt began to notice jaundice color, skin ld1 redness, eyes bulging, vision changes, heart palpitations. Coronavirus screen: At this time, the client does not indicate any symptoms associated with coronavirus-19. Ebola Screen: No symptoms or risks identified at this time. Initial Sepsis Screen: Does the patient meet any 2 criteria? No. Patient's initial sepsis screen is negative. Does the patient have a suspected source of infection? No. Patient's initial sepsis screen is negative. Risk Assessment: Do you want to hurt yourself or someone else? Patient reports no desire to harm self or others. Onset of symptoms was July 26, 2024. 16:01 Method Of Arrival: Ambulatory ld1 16:01 Acuity: ISREAL 3 ld1 Triage Assessment: 16:03 General: Appears in no apparent distress. comfortable, Behavior is calm, cooperative, ld1 appropriate for age. Pain: Complains of pain in abdomen Pain does not radiate. Pain currently is 7 out of 10 on a pain scale. Quality of pain is described as throbbing, Pain began suddenly, Is continuous. EENT: No signs and/or symptoms were reported regarding the EENT system. Neuro: Level of Consciousness is awake, alert, obeys commands, Oriented to person, place, time, situation. Cardiovascular: Capillary refill < 3 seconds Patient's skin is warm and dry. Respiratory: Reports shortness of breath at rest on exertion Airway is patent Respiratory effort is even, unlabored, Onset: The symptoms/episode began/occurred gradually, the patient has moderate shortness of breath. GI: Abdomen is round non-distended, Reports lower abdominal pain, upper abdominal pain. : No signs and/or symptoms were reported regarding the genitourinary system. Derm: No signs and/or symptoms reported regarding the dermatologic system. Musculoskeletal: No signs and/or symptoms reported regarding the musculoskeletal system. 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 - Infectious Disease History:: Denies. - Social history:: Smoking status: Patient denies any tobacco usage or history of. Screenin:29 [facility] ED Fall Risk Assessment (Adult) History of falling in the last 3 months, kj2 including since admission No falls in past 3 months (0 pts) Confusion or Disorientation No (0 pts) Intoxicated or Sedated No (0 pts) Impaired Gait No (0 pts) Mobility Assist Device Used No (0 pt) Altered Elimination No (0 pt) Score/Fall Risk Level 0 - 2 = Low Risk. Abuse screen: Denies threats or abuse. Denies injuries from another. Nutritional screening: No deficits noted. Tuberculosis screening: No symptoms or risk factors identified. Assessment: 17:26 General: Appears uncomfortable, Behavior is cooperative. Pain: Complains of pain in kj2 right upper quadrant and abdomen Pain currently is 8 out of 10 on a pain scale. Cardiovascular: Patient's skin is warm and dry. Respiratory: Airway is patent Respiratory effort is even, unlabored. GI: Reports lower abdominal pain. 20:36 Reassessment: Patient and/or family updated on plan of care and expected duration. Pain kj2 level reassessed. Patient is alert, oriented x 3, equal unlabored respirations, skin warm/dry/pink. patient resting with eyes closed, says bp cuff hurts her arm, does not want bp at this time Patient states symptoms have improved. 21:47 Reassessment: Patient and/or family updated on plan of care and expected duration. Pain kj2 level reassessed. Patient is alert, oriented x 3, equal unlabored respirations, skin warm/dry/pink. 22:08 Cardiovascular: Rhythm is. Respiratory: Breath sounds are clear bilaterally. kj2 Vital Signs: 16:01 Pulse 100; Resp 18; Temp 98.2(TE); Pulse Ox 98% on R/A; Height 5 ft. 3 in. ; Pain 0/10; ld1 16:01 BP 160 / 105; ld1 18:02 BP 167 / 82; Pulse 85; Resp 20; Pulse Ox 98% on R/A; cm10 20:39 BP 113 / 101; Pulse 83; Resp 16; Pulse Ox 99% on R/A; kj2 22:08 BP 138 / 97; Pulse 79; Resp 18; Temp 98; Pulse Ox 100% on R/A; kj2 16:01 Pain Scale: Adult ld1 ED Course: 15:54 Patient arrived in ED. ra3 15:56 Rayna Adams PA-C is PHCP. sb4 15:56 Vishnu Kaur DO is Attending Physician. sb4 16:03 Triage completed. ld1 16:03 Arm band placed on right wrist. ld1 17:09 First set of blood cultures drawn by me. oh1 17:24 Second set of blood cultures drawn by me. oh1 17:25 Ashlyn Bishop, COURTNEY is Primary Nurse. kj2 17:30 Patient has correct armband on for positive identification. Bed in low position. Call kj2 light in reach. Adult w/ patient. Provided Education on: call light, fall precautions. 17:31 No provider procedures requiring assistance completed. kj2 17:33 Inserted saline lock: 20 gauge in left antecubital area, using aseptic technique. Blood oh1 collected. Flushed with 10 mL NS. 17:34 Initial lab(s) drawn, by me, sent to lab. oh1 17:35 Warm blanket given. PO fluids given. oh1 18:00 First set of blood cultures drawn by me. oh1 18:02 EKG done, by ED staff, reviewed by Rayna Adams PA-C. cm10 18:15 Lab(s) recollected, by me, sent to lab. Inserted saline lock: 20 gauge in right oh1 antecubital area, using aseptic technique. Blood collected. Flushed with 10 mL NS. 18:15 Second set of blood cultures drawn by me. oh1 18:23 AMMONIA Sent. oh1 18:23 Blood Culture Adult (2) Sent. oh1 20:00 CT Abd/Pelvis - IV Contrast Only In Process Unspecified. EDMS 21:48 Silver Gutierrez MD is Referral Physician. sb4 22:10 IV discontinued, intact, bleeding controlled, No redness/swelling at site. Pressure kj2 dressing applied. Administered Medications: 18:02 Drug: morphine IVP or IV 4 mg IVP once over 4 mins Route: IVP; Infused Over: 4 mins; cm10 Site: left antecubital; 18:45 Follow up: Response: No adverse reaction kj2 18:02 Drug: Ondansetron IVP 4 mg IVP once; over 2 minutes Route: IVP; Site: left antecubital; cm10 18:45 Follow up: Response: No adverse reaction; Nausea is decreased kj2 19:42 Drug: fentaNYL (PF) IVP 50 mcg IVP once Route: IVP; Site: right antecubital; cm10 20:20 Follow up: Response: No adverse reaction kj2 22:00 Drug: fentaNYL (PF) IVP 50 mcg IVP once Route: IVP; Site: right antecubital; kj2 22:07 Follow up: Response: No adverse reaction; Medication administered at discharge. kj2 22:06 Drug: MethylPrednisoLONE IVP 125 mg IVP once Route: IVP; Site: right antecubital; kj2 22:07 Follow up: Response: No adverse reaction; Medication administered at discharge. kj2 Medication: 17:30 VIS not applicable for this client. kj2 Outcome: 21:50 Discharge ordered by . jaycee 22:09 Discharged to home ambulatory, kj2 22:09 Condition: stable 22:09 Discharge instructions given to patient, family, Instructed on discharge instructions, follow up and referral plans. medication usage, Demonstrated understanding of instructions, follow-up care, medications, Prescriptions given X 2, 22:10 Patient left the ED. kj2 Signatures: Dispatcher [employer] EDMS Lisette Kaur RN RN ld1 Rayna Adams PA-C PA-C [id number] Ladi Petersen RN RN cm10 Josephine Acosta ra3 Ashlyn Bishop RN RN kj2 Fiorella Kaiser oh1
--- NOTE | 2024-07-26 21:50 | EDPHYS ---
Physician Documentation [facility] Name: Evelyn Chawla Age: 43 yrs Sex: Female : 1980 Arrival Date: 07/26/2024 Time: 15:51 Bed 13 Private MD: ED Physician Vishnu Kaur HPI: 07/26 16:16 This 43 yrs old Female presents to ER via Ambulatory with complaints of abdominal pain. sb4 16:17 The patient presents with abdominal pain in the right upper quadrant. The symptoms sb4 radiate to right back. Associated signs and symptoms: Pertinent positives: nausea and vomiting, palpitations, shortness of breath. The symptoms are described as sharp. The patient has experienced similar episodes in the past, several times. Patient reports right upper quadrant pain for a few days now. She states that she initially called Dr. Thrasher's office who called her and a GI cocktail. She states that usually helps alleviate her symptoms, but has not this time. Additionally, she states that she has been experiencing some nausea and vomiting. 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 She is supposed to have an MRCP in the near future for further diagnostics. She also states that she feels like her vision has been blurry, her eyes have been bulging, her right anterior neck has been swollen, she has had jaundice, and that her abdomen has been swollen. 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 - Infectious Disease History:: Denies. - Social history:: Smoking status: Patient denies any tobacco usage or history of. ROS: 16:20 Constitutional: Negative for fever, chills, and weight loss, sb4 16:20 Eyes: Positive for blurry vision, 16:20 Neck: Positive for swelling, 16:20 Respiratory: Positive for shortness of breath, 16:20 Abdomen/GI: Positive for abdominal pain, nausea and vomiting, 16:20 Skin: Positive for jaundice, 16:20 All other systems are negative, Exam: 16:20 Head/Face: Normocephalic, atraumatic. Eyes: Extra-ocular motions intact. Periorbital sb4 areas with no swelling, redness, or edema. ENT: Mucous membranes moist. Respiratory: Lungs have equal breath sounds bilaterally, clear to auscultation and percussion. No rales, rhonchi or wheezes noted. No increased work of breathing, no retractions or nasal flaring. Skin: Warm, dry with normal turgor. Normal color with no rashes, no lesions, and no evidence of cellulitis. 16:20 Constitutional: The patient appears alert, awake, anxious, 16:20 Cardiovascular: Rate: tachycardic, Rhythm: regular, 16:20 Abdomen/GI: Inspection: scar(s), are noted in the right upper quadrant, Bowel sounds: normal, Palpation: soft, moderate abdominal tenderness, in the right upper quadrant, Vital Signs: 16:01 Pulse 100; Resp 18; Temp 98.2(TE); Pulse Ox 98% on R/A; Height 5 ft. 3 in. ; Pain 0/10; ld1 16:01 BP 160 / 105; ld1 18:02 BP 167 / 82; Pulse 85; Resp 20; Pulse Ox 98% on R/A; cm10 20:39 BP 113 / 101; Pulse 83; Resp 16; Pulse Ox 99% on R/A; kj2 22:08 BP 138 / 97; Pulse 79; Resp 18; Temp 98; Pulse Ox 100% on R/A; kj2 16:01 Pain Scale: Adult ld1 MDM: 16:09 Patient medically screened. sb4 21:48 Data reviewed: vital signs, nurses notes, lab test result(s), radiologic studies, and sb4 as a result, I will discharge patient. 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 07/26 16:09 Order name: Blood Culture Adult (2) sb4 07/26 16:09 Order name: CBC with Diff; Complete Time: 17:45 sb4 07/26 16:09 Order name: CMP; Complete Time: 18:04 sb4 07/26 16:09 Order name: Lactate w/ 2H reflex if indic.; Complete Time: 17:52 sb4 07/26 16:09 Order name: Protime (+inr); Complete Time: 18:04 sb4 07/26 16:09 Order name: Ptt, Activated; Complete Time: 18:04 sb4 07/26 16:09 Order name: Lipase; Complete Time: 18:04 sb4 07/26 16:09 Order name: AMMONIA; Complete Time: 18:46 sb4 07/26 16:10 Order name: TSH; Complete Time: 18:04 sb4 07/26 18:52 Order name: CT Abd/Pelvis - IV Contrast Only; Complete Time: 20:46 sb4 07/26 16:09 Order name: Accucheck; Complete Time: 18:23 sb4 07/26 16:09 Order name: Cardiac monitoring; Complete Time: 18:02 sb4 07/26 16:09 Order name: EKG - Nurse/Tech; Complete Time: 18:02 sb4 07/26 16:09 Order name: IV Saline Lock - Large Bore; Complete Time: 18:02 sb4 07/26 16:09 Order name: Labs collected and sent; Complete Time: 18:02 sb4 07/26 16:09 Order name: O2 Per Protocol; Complete Time: 18:02 sb4 07/26 16:09 Order name: O2 Sat Monitoring; Complete Time: 18:02 sb4 07/26 16:09 Order name: Vital Signs; Complete Time: 18:03 sb4 EC:04 Rate is 75 beats/min. Rhythm is regular, Normal Sinus Rhythm. NE interval is normal at sb4 122 msec. QRS interval is normal at 88 msec. QT interval is normal at 358 msec. No Q waves. T waves are Normal. No ST changes noted. Clinical impression: Normal ECG and No evidence of ischemia. Interpreted by me. Reviewed by me. Administered Medications: 18:02 Drug: morphine IVP or IV 4 mg IVP once over 4 mins Route: IVP; Infused Over: 4 mins; cm10 Site: left antecubital; 18:45 Follow up: Response: No adverse reaction kj2 18:02 Drug: Ondansetron IVP 4 mg IVP once; over 2 minutes Route: IVP; Site: left antecubital; cm10 18:45 Follow up: Response: No adverse reaction; Nausea is decreased kj2 19:42 Drug: fentaNYL (PF) IVP 50 mcg IVP once Route: IVP; Site: right antecubital; cm10 20:20 Follow up: Response: No adverse reaction kj2 22:00 Drug: fentaNYL (PF) IVP 50 mcg IVP once Route: IVP; Site: right antecubital; kj2 22:07 Follow up: Response: No adverse reaction; Medication administered at discharge. kj2 22:06 Drug: MethylPrednisoLONE IVP 125 mg IVP once Route: IVP; Site: right antecubital; kj2 22:07 Follow up: Response: No adverse reaction; Medication administered at discharge. kj2 Disposition: 16:24 I was immediately available on-site in the Emergency Department for consultation in the ms3 care of the patient. 21:48 Chart complete. sb4 Disposition Summary: 07/26/24 21:50 Discharge Ordered Notes: Location: Home sb4 Problem: an acute exacerbation sb4 Symptoms: have improved sb4 Condition: Stable sb4 Diagnosis - Upper abdominal pain, unspecified sb4 - Localized edema sb4 Followup: sb4 - With: Silver Gutierrez MD - When: 2 - 3 days - Reason: Further diagnostic work-up, Recheck today's complaints, Re-evaluation by your physician Discharge Instructions: - Discharge Summary Sheet sb4 - Abdominal Pain, Adult sb4 Forms: - Patient Portal Instructions sb4 - Leadership Thank You Letter sb4 Prescriptions: - Tramadol 50 mg Oral Tablet - take 1 tablet ORAL route every 8 hours as needed; 12 tablet; Refills: 0, sb4 Product Selection Permitted - Prednisone 20 mg Oral Tablet - take 2 tablets ORAL route once daily for 5 days; 10 tablet; Refills: 0, Product sb4 Selection Permitted Signatures: Dispatcher [employer] EDMS Vishnu Kaur DO DO ms3 Lisette Kaur RN RN ld1 Rayna Adams PA-C PARichie sb4 Ladi Petersen RN RN cm10 Ashlyn Bishop RN RN kj2 Corrections: (The following items were deleted from the chart) 16:10 16:10 BLOOD CULTURE*+BA.LAB.BRZ ordered. EDMS EDMS 16:10 16:10 CBC+H.LAB.BRZ ordered. EDMS EDMS 16:10 16:10 COMPREHENSIVE METABOLIC PANEL+C.LAB.BRZ ordered. EDMS EDMS 16:10 16:10 LACTATE+C.LAB.BRZ ordered. EDMS EDMS 16:10 16:10 PROTIME (+INR)+COAG.LAB.BRZ ordered. EDMS EDMS 16:10 16:10 PTT, ACTIVATED+COAG.LAB.BRZ ordered. EDMS EDMS 16:10 16:10 LIPASE+C.LAB.BRZ ordered. EDMS EDMS 16:10 16:10 AMMONIA+C.LAB.BRZ ordered. EDMS EDMS
[2024-07-26] MEDS ORDERED: METHYLPREDNISOLONE 125 MG INJ ONE (21:56)
[2024-07-26 22:38] VITALS: BP 138/97; TEMP 98; O2SAT 100
--- NOTE | 2024-07-29 17:07 | EKG ---
Test Date: 2024-07-26 Test Time: 17:56:55 Cook Pressure: IVANA MEASUREMENT RESULTS: Intervals: Rate: 75 W[place]: 122 QRSD: 88 QT: 358 QTc: 399 [place]: P: 75 WY: 122 QRS: 45 T: 73 INTERPRETIVE STATEMENTS: Normal sinus rhythm Normal ECG Compared to ECG 03/08/2023 18:14:50 Incomplete right bundle-branch block no longer present Electronically Signed On 07-29-24 17:00:48 CDT by Brennen Cavanaugh
== END 2024-07-26 22:10 | disposition home or self-care (01) ==
LOC: ER 15:51
DX: R10.11 Right upper quadrant pain (principal); R60.0 Localized edema; R17 Unspecified jaundice; R06.02 Shortness of breath; R00.2 Palpitations; K83.9 Disease of biliary tract, unspecified
CPT/HCPCS: 93005; 87040 ×2; 85025; 36415; 82140; 85610; 83605; 85730; 84443; 83690; 80053; 74177; 99284; Q9967; J3010 ×2; J2919; J2405

== ENCOUNTER 2024-08-23 08:35 | Day surgery (SDC) | payer OTHER ==
[2024-08-21 15:50] LABS: Anion Gap 7.3 mEq/L (5.0-15.0); BUN Blood Urea Nitrogen 4 mg/dL (7-18); Bicarbonate 26 mEq/L (21-32); Glomerular Filtration Rate 105 ml/min (=/>90); Glucose Level 87 mg/dL (74-106); Potassium 3.3 mEq/L (3.5-5.1); Sodium Level 138 mEq/L (136-145)
[2024-08-21 15:53] LABS: C-Reactive Protein < 2.90 mg/L (<3.00)
--- NOTE | 2024-08-21 16:02 | RAD REPORT ---
EXAMINATION: ONE VIEW CHEST XR CLINICAL INDICATION: Female, 43 years old.PREOP TECHNIQUE: 1 View, AP supine, X-ray of the chest was performed. [id number]. COMPARISON: 03/08/2023 FINDINGS: Lungs and pleura: Clear lungs. No effusion. Heart and mediastinum: Normal heart size. Unremarkable mediastinal contours. Emphysema. Osseous structures: No acute abnormality. Tubes/lines: None Other: None. IMPRESSION: No acute intrathoracic abnormality.
[2024-08-23] MEDS ORDERED: FENTANYL CITR 100 MCG/2 ML ONE ×2 (08:51→11:14)
[2024-08-23] MEDS ORDERED: LIDOCAINE 2% MPF 5 ML VIAL ONE (08:51)
[2024-08-23] MEDS ORDERED: MIDAZOLAM HCL 2 MG/2 ML INJ ONE (08:51)
[2024-08-23] MEDS ORDERED: propofoL 200 MG/20 ML VIAL IV ONE (08:51)
[2024-08-23] MEDS ORDERED: KETOROLAC 30 MG/ML INJ ONE (08:51)
[2024-08-23] MEDS ORDERED: dexAMETHasone 10 MG/ML VIAL ONE (08:51)
[2024-08-23] MEDS ORDERED: ONDANSETRON 4 MG/2 ML VIAL ONE ×2 (08:51→10:59)
[2024-08-23] MEDS ORDERED: Ringers Lactate 1,000 ML IV ONE (09:02)
[2024-08-23] MEDS ORDERED: CEFAZOLIN SODIUM 2 GM/VIAL ONE (09:02)
[2024-08-23] MEDS ORDERED: BUPIVACAINE 0.5% PF 10 ML VIAL ONE (09:06)
[2024-08-23] MEDS ORDERED: LIDOCAINE 1% 20 ML MDV ONE (09:06)
[2024-08-23] MEDS ORDERED: NS 0.9% VIAL 10 ML ONE ×2 (10:12)
[2024-08-23] MEDS ORDERED: Mastisol Adhesive Liq ONE (10:31)
--- NOTE | 2024-08-23 10:54 | P.OP ---
Date of Service: 08/23/24 Preop diagnosis: Right-sided headache and vision change, rule out temporal arteritis Postop diagnosis: Same Procedure performed: Right temporal artery biopsy, utilization of a Doppler device Surgeon: MD jessica Brown Virtual Recruiter: Estimated blood loss: Minimal Specimen: Right temporal artery Findings: As above Anesthesia: General Complications: None Drains: None Fluids and blood products: Nonapplicable Disposition: Recovery room Operative note: Patient brought to the OR and placed in supine position. General anesthesia began. Patient prepped and draped in usual sterile fashion. Marcaine 0.5% infiltrated locally. Doppler device used to identify a branch of the temporal artery anterior and superior to the right ear. Marcaine 0.5% infiltrated locally. 15 blade used to make a 4 cm incision over the branch of the right temporal artery. Subcutaneous tissue divided and bleeding controlled with cautery. The artery identified. Proximal and distal control obtained. Adhesions and side branches divided. 4 cm section of the right temporal artery branch was excised and sent to pathology. Both ends were tied with 4-0 silk ties. Wound irrigated bleeding controlled cautery. 4-0 chromic used to approximate subcutaneous tissue and close skin. Sterile dressing applied. Patient awakened and taken to recovery room in good general condition. CC: Dr. Hernandez's office
[2024-08-23] MEDS ORDERED: HYDROMORPHONE HCL 1 MG/ML INJ ONE (10:57)
[2024-08-23] MEDS ORDERED: PROMETHAZINE INJ 25 MG/ML AMP ONE (10:59)
[2024-08-23] MEDS ORDERED: HYDROCODONE/APAP 7.5/325 MG TAB ONE (11:37)
[2024-08-23] MEDS: HYDROCODONE/APAP 7.5/325 MG TAB PO PRN (11:41)
[2024-08-23 12:21] VITALS: BP 113/77; TEMP 97; O2SAT 100
--- NOTE | 2024-08-23 16:41 | EKG ---
Test Date: 2024-08-21 Test Time: 15:37:32 Estate Manager: CD MEASUREMENT RESULTS: Intervals: Rate: 78 HI: 136 QRSD: 100 QT: 376 QTc: 428 [place]: P: 82 HI: 136 QRS: 19 T: 73 INTERPRETIVE STATEMENTS: Normal sinus rhythm Incomplete right bundle branch block Borderline ECG Compared to ECG 07/26/2024 17:56:55 Incomplete right bundle-branch block now present Electronically Signed On 08-23-24 16:34:15 CDT by Brennen Cavanaugh
== END 2024-08-23 12:00 | disposition home or self-care (01) ==
LOC: OR 08:35
PROVIDERS: ATTEND Surgery
PROC: 03BS0ZX Excision of Right Temporal Artery, Open Approach, Diagnostic (ICD-10-PCS; principal; 2024-08-23 10:00)
DX: R51.9 Headache, unspecified (principal); H53.9 Unspecified visual disturbance; R51.0 Headache with orthostatic component, not elsewhere classified
CPT/HCPCS: 93005; 80048; 36415; 88305; 86140; 71045; 37609; J2550; A4216 ×2; J2704; J2001; J2250; J3010 ×2; J1100; J1170; J2405 ×2; J7120

== ENCOUNTER 2024-11-18 11:38 | Emergency (ER) | payer OTHER ==
[2024-11-18] MEDS ORDERED: KETOROLAC 30 MG/ML INJ ONE (12:58)
[2024-11-18] MEDS ORDERED: METOCLOPRAMIDE 10 MG/2mL INJ ONE (12:58)
[2024-11-18] MEDS ORDERED: NA CHLORIDE 0.9% 1,000 ML ONE (12:58)
[2024-11-18] MEDS ORDERED: DIPHENHYDRAMINE 50 MG/ML VIAL ONE (12:58)
--- NOTE | 2024-11-18 13:52 | RAD REPORT ---
EXAMINATION: CT HEAD WITHOUT CONTRAST CLINICAL INDICATION: Female, 44 years old.migraine TECHNIQUE: Axial CT images from the skull base to the vertex without intravenous contrast. Coronal an d sagittal reformatted images were created from the data set. One or more of the following dose reduction techniques were used: Automated exposure control, adjustment of the mA and/or kV according to patient size, and/or iterative reconstruction. Unless otherwise specified, incidental findings do not require dedicated imaging follow-up. [id number]. COMPARISON: No prior exam. FINDINGS: INTRACRANIAL: No acute intracranial hemorrhage. No hydrocephalus. No mass effect or midline shift. No significant white matter disease VASCULATURE: No visualized abnormalities in the arteries or dural venous sinuses. SCALP/SKULL: No significant soft tissue or osseous abnormalities. SINUSES: The visualized paranasal sinuses and mastoid air cells are predominantly clear. IMPRESSION: No acute intracranial abnormality.
--- NOTE | 2024-11-18 13:59 | ER ---
Nurse's Notes [facility] Name: Evelyn Chawla Age: 44 yrs Sex: Female : 1980 Arrival Date: 11/18/2024 Time: 11:38 Bed 26 Private MD: Diagnosis: Headache Presentation: 11/18 12:04 Chief complaint: Patient states: migraine x 3 days, hx of migraines. Initial Sepsis jl7 Screen: Does the patient meet any 2 criteria? No. Patient's initial sepsis screen is negative. Does the patient have a suspected source of infection? No. Patient's initial sepsis screen is negative. Risk Assessment: Do you want to hurt yourself or someone else? Patient reports no desire to harm self or others. Onset of symptoms was November 15, 2024. 12:04 Acuity: ISREAL 3 jl7 14:10 Coronavirus screen: Vaccine status: Patient reports being unvaccinated. Ebola Screen: me1 No symptoms or risks identified at this time. 14:10 Method Of Arrival: Ambulatory me1 [employer]: 14:10 LMP N/A - Post-menopause, Not me1 Historical: - Allergies: 12:05 Ciprofloxacin; jl7 - PMHx: 12:05 interstitial cystitis; Mieners disease; stage 2 billiary disease; trigeminal neuralgia; jl7 - PSHx: 12:05 Cholecystectomy; Total abdominal hysterectomy; jl7 - Immunization history:: Adult Immunizations up to date. - Infectious Disease History:: Denies. - Social history:: Smoking status: Patient/guardian denies using tobacco. Screenin:30 [facility] ED Fall Risk Assessment (Adult) History of falling in the last 3 months, me1 including since admission No falls in past 3 months (0 pts) Confusion or Disorientation No (0 pts) Intoxicated or Sedated No (0 pts) Impaired Gait No (0 pts) Mobility Assist Device Used No (0 pt) Altered Elimination No (0 pt) Score/Fall Risk Level 0 - 2 = Low Risk Maintained a safe environment, Provided non-skid footwear, Hourly rounding (assess needs \T\ fall precautionary measures) done. Abuse screen: Denies threats or abuse. Nutritional screening: No deficits noted. Tuberculosis screening: No symptoms or risk factors identified. Assessment: 12:30 General: Appears uncomfortable, slender, well groomed, well developed, Behavior is me1 calm, cooperative, appropriate for age. Pain: Complains of pain in head Pain does not radiate. Pain currently is 8 out of 10 on a pain scale. Quality of pain is described as aching, throbbing, Pain began 2-3 days ago. Is continuous. Neuro: Level of Consciousness is awake, alert, obeys commands, Oriented to person, place, time, situation, Appropriate for age. Cardiovascular: Patient's skin is warm and dry. Respiratory: Airway is patent Respiratory effort is even, unlabored, Respiratory pattern is regular, symmetrical. GI: No signs and/or symptoms were reported involving the gastrointestinal system. : No signs and/or symptoms were reported regarding the genitourinary system. EENT: No signs and/or symptoms were reported regarding the EENT system. Derm: Skin is intact, is healthy with good turgor, Skin is pink, warm \T\ dry. Musculoskeletal: No signs and/or symptoms reported regarding the musculoskeletal system. Vital Signs: 12:04 BP 141 / 100; Pulse 85; Resp 15; Temp 97.4; Pulse Ox 97% ; Weight 56.7 kg; Height 5 ft. jl7 4 in. ; Pain 8/10; 13:00 BP 114 / 77; Pulse 66; Resp 15; Pulse Ox 98% ; me1 13:37 Pain 4/10; me1 13:38 Pain 4/10; me1 13:38 Pain 4/10; me1 14:00 BP 126 / 83; Pulse 67; Resp 14; Temp 98.1; Pulse Ox 99% ; me1 12:04 Body Mass Index 21.46 (56.70 kg, 162.56 cm) jl7 12:04 Pain Scale: Adult jl7 13:37 Pain Scale: Adult me1 13:38 Pain Scale: Adult me1 13:38 Pain Scale: Adult me1 ED Course: 11:41 Patient arrived in ED. ra3 11:43 Rayna Adams PA-C is PHCP. sb4 11:43 Jenna Monson MD is Attending Physician. sb4 12:04 Anabel Goodrich, COURTNEY is Primary Nurse. jl7 12:05 Triage completed. jl7 12:05 Arm band placed on Patient placed in an exam room. me1 12:30 No provider procedures requiring assistance completed. me1 12:30 Patient has correct armband on for positive identification. Bed in low position. Call sd1 light in reach. Side rails up X 1. Provided Education on: POC. Verbalized understanding.. Client placed on continuous cardiac and pulse oximetry monitoring. NIBP monitoring applied. Pulse ox on. NIBP on. 12:30 Warm blanket given. me1 12:48 Chrissy Mclaughlin, COURTNEY is Primary Nurse. me1 13:05 Initial lab(s) drawn, by me, sent to lab. Inserted saline lock: 22 gauge in left me1 antecubital area, using aseptic technique. 13:40 Head Brain Wo Cont CT In Process Unspecified. EDMS 14:11 IV discontinued, intact, bleeding controlled, No redness/swelling at site. Pressure me1 dressing applied. Administered Medications: 13:05 Drug: Ketorolac IVP 15 mg IVP once Route: IVP; Site: left antecubital; me1 13:38 Follow up: Pain 4/10 Adult; Response: No adverse reaction; Pain is decreased sd1 13:05 Drug: metoCLOPramide IVP 10 mg IVP once; over 1 to 2 minutes Route: IVP; Site: left me1 antecubital; 13:38 Follow up: Pain 4/10 Adult; Response: No adverse reaction; Pain is decreased me1 13:05 Drug: diphenhydrAMINE IVP 25 mg IVP once Route: IVP; Site: left antecubital; me1 13:37 Follow up: Pain 4/10 Adult; Response: No adverse reaction; Pain is decreased sd1 13:06 Drug: NS 0.9% IV 1000 ml IV at 1 bolus Per protocol; to be given as a bolus over 60 me1 minutes Route: IV; Rate: 1 bolus; Site: left antecubital; 14:12 Follow up: Response: No adverse reaction; IV Status: Completed infusion; IV Intake: me1 1000ml Medication: 12:30 VIS not applicable for this client. me1 Intake: 14:12 IV: 1000ml; Total: 1000ml. me1 Outcome: 13:58 Discharge ordered by . sb4 14:11 Discharged to home ambulatory, me1 14:11 Condition: stable 14:11 Discharge instructions given to patient, Instructed on discharge instructions, follow up and referral plans. Demonstrated understanding of instructions, follow-up care, 14:11 Patient left the ED. me1 Signatures: Dispatcher [employer] Anabel Harrell RN RN jl7 Rayna Adams PA-C PA-C sb4 Chrissy Mclaughlin RN RN me1 Josephine Acosta ra3
--- NOTE | 2024-11-18 13:59 | EDPHYS ---
Physician Documentation [facility] Name: Evelyn Chawla Age: 44 yrs Sex: Female : 1980 Arrival Date: 11/18/2024 Time: 11:38 Bed 26 Private MD: ED Physician Jenna Monson HPI: 11/18 14:00 This 44 yrs old Female presents to ER via Unassigned with complaints of Migraine. sb4 14:00 Patient states that her and her family have been sick with some URI, they believe it sb4 has the flu. States that she has now had a headache for 3 days because of it. She has tried taking several [id number] medications without any relief. She reports pain to her right yarsani and behind her left eye. Endorses nausea, denies vomiting. Does report some photosensitivity. No dizziness or blurry vision. Does have a history of migraines but states that this feels different. HOSPITAL INTERNSHIP: 14:10 LMP N/A - Post-menopause, Not me1 Historical: - Allergies: 12:05 Ciprofloxacin; jl7 - PMHx: 12:05 interstitial cystitis; Mieners disease; stage 2 billiary disease; trigeminal neuralgia; jl7 - PSHx: 12:05 Cholecystectomy; Total abdominal hysterectomy; jl7 - Immunization history:: Adult Immunizations up to date. - Infectious Disease History:: Denies. - Social history:: Smoking status: Patient/guardian denies using tobacco. ROS: 14:00 Constitutional: Negative for fever, chills, and weight loss, sb4 14:00 Neuro: Positive for headache, 14:00 All other systems are negative, Exam: 14:00 Constitutional: This is a well developed, well nourished patient who is awake, alert, sb4 and in no acute distress. Head/Face: Normocephalic, atraumatic. Eyes: Extra-ocular motions intact. Periorbital areas with no swelling, redness, or edema. ENT: Mucous membranes moist. Cardiovascular: Regular rate and rhythm with a normal S1 and S2. Respiratory: No increased work of breathing, no retractions or nasal flaring. Abdomen/GI: Soft, non-tender, no distension. Skin: Warm, dry with normal turgor. Normal color with no rashes, no lesions, and no evidence of cellulitis. MS/ Extremity: Pulses equal, no cyanosis. Neurovascular intact. Full, normal range of motion. Neuro: Awake and alert, GCS 15, oriented to person, place, time, and situation. Motor strength 5/5 in all extremities. Sensory grossly intact. Vital Signs: 12:04 BP 141 / 100; Pulse 85; Resp 15; Temp 97.4; Pulse Ox 97% ; Weight 56.7 kg; Height 5 ft. jl7 4 in. ; Pain 8/10; 13:00 BP 114 / 77; Pulse 66; Resp 15; Pulse Ox 98% ; me1 13:37 Pain 4/10; me1 13:38 Pain 4/10; me1 13:38 Pain 4/10; me1 14:00 BP 126 / 83; Pulse 67; Resp 14; Temp 98.1; Pulse Ox 99% ; me1 12:04 Body Mass Index 21.46 (56.70 kg, 162.56 cm) jl7 12:04 Pain Scale: Adult jl7 13:37 Pain Scale: Adult me1 13:38 Pain Scale: Adult me1 13:38 Pain Scale: Adult me1 MDM: 12:04 Medical Screening Exam initiated sb4 14:02 Data reviewed: vital signs, nurses notes, radiologic studies, and as a result, I will sb4 discharge patient. Counseling: I had a detailed discussion with the patient and/or guardian regarding the historical points, exam findings, and any diagnostic results supporting the discharge/admit diagnosis, radiology results, to return to the emergency department if symptoms worsen or persist or if there are any questions or concerns that arise at home. 11/18 12:46 Order name: Head Brain Wo Cont CT; Complete Time: 13:53 sb4 11/18 12:46 Order name: IV Start; Complete Time: 13:05 sb4 Administered Medications: 13:05 Drug: Ketorolac IVP 15 mg IVP once Route: IVP; Site: left antecubital; ks1 13:38 Follow up: Pain 4/10 Adult; Response: No adverse reaction; Pain is decreased me1 13:05 Drug: metoCLOPramide IVP 10 mg IVP once; over 1 to 2 minutes Route: IVP; Site: left me1 antecubital; 13:38 Follow up: Pain 4/10 Adult; Response: No adverse reaction; Pain is decreased me1 13:05 Drug: diphenhydrAMINE IVP 25 mg IVP once Route: IVP; Site: left antecubital; me1 13:37 Follow up: Pain 4/10 Adult; Response: No adverse reaction; Pain is decreased me1 13:06 Drug: NS 0.9% IV 1000 ml IV at 1 bolus Per protocol; to be given as a bolus over 60 me1 minutes Route: IV; Rate: 1 bolus; Site: left antecubital; 14:12 Follow up: Response: No adverse reaction; IV Status: Completed infusion; IV Intake: me1 1000ml Disposition Summary: 11/18/24 13:58 Discharge Ordered Notes: Location: Home sb4 Problem: new sb4 Symptoms: have improved sb4 Condition: Stable sb4 Diagnosis - Headache sb4 Followup: sb4 - With: Emergency Department - When: As needed - Reason: Trouble breathing, Worsening of condition Discharge Instructions: - Discharge Summary Sheet sb4 - Migraine Headache, [id number] sb4 Forms: - Patient Portal Instructions sb4 - Leadership Thank You Letter sb4 Signatures: Dispatcher [employer] Anabel Harrell, RN RN jl7 Rayna Adams PARichie PARichie sb4 Chrissy Mclaughlin RN RN me1 Corrections: (The following items were deleted from the chart) 12:47 12:47 Head Brain Wo [id number].RAD.[id number] ordered. [place]
[2024-11-18 16:34] VITALS: BP 126/83; TEMP 98.1; O2SAT 99
== END 2024-11-18 14:11 | disposition home or self-care (01) ==
LOC: ER 11:38
DX: R51.9 Headache, unspecified (principal)
CPT/HCPCS: 96361; 70450; 96375; 96374; 99284; J2765; J1200; J7030